=== PATIENT | female | born 1965 | race Caucasian/White ===

== ENCOUNTER 2024-03-10 18:52 | Inpatient (IN) | payer OTHER, SELFPAY ==
[2024-03-10 18:55] VITALS: BP 130/64; PULSE 80; RESP 16; TEMP 36.6; O2SAT 97
[2024-03-11] VITALS (16 sets, daily range): BP systolic 102–153; BP diastolic 65–98; PULSE 76–101; RESP 16–22; TEMP 36.3–36.9; O2SAT 96–100; BMI 53.1
--- NOTE | 2024-03-11 00:12 | ED.SKABFB ---
HPI - Skin/Abscess/Foreign Bdy General Chief complaint: Skin/Abscess/Foreign Body Stated complaint: boil on right breast Time Seen by Provider: 03/10/24 23:18 Source: patient Mode of arrival: EMS Limitations: no limitations History of Present Illness HPI narrative: This is a 58-year-old female that presents to the emergency department for an abscess to the right breast. Reports this has been present over the last 5 days. She has been on oral antibiotics for about 3 days with little relief. Has had worsening redness, swelling and drainage. Denies fevers. Related Data Home Medications Medication Instructions Recorded Confirmed acetaminophen 650 mg 1,300 mg PO Q8H PRN Pain 03/11/24 03/11/24 tablet,extended release albuterol sulfate 90 mcg/actuation 1 puff inhalation TID PRN 03/11/24 03/11/24 aerosol inhaler Shortness Of Breath alendronate 70 mg tablet 70 mg PO WEEKLY 03/11/24 03/11/24 ascorbate calcium (vitamin C) 500 1,000 mg PO DAILY 03/11/24 03/11/24 mg tablet aspirin 81 mg chewable tablet 81 mg PO DAILY 03/11/24 03/11/24 atorvastatin 40 mg tablet 40 mg PO HS 03/11/24 03/11/24 calcium carbonate (Tums) 400 mg PO TID PRN upset stomach 03/11/24 03/11/24 carvedilol 12.5 mg tablet 12.5 mg PO BID 03/11/24 03/11/24 cetirizine 10 mg tablet 10 mg PO DAILY PRN allergies 03/11/24 03/11/24 cholecalciferol (vitamin D3) 25 50 mcg PO DAILY 03/11/24 03/11/24 mcg (1,000 unit) tablet citalopram 40 mg tablet 40 mg PO DAILY 03/11/24 03/11/24 dapagliflozin propanediol 10 mg 10 mg PO DAILY 03/11/24 03/11/24 tablet (Farxiga) docusate sodium 100 mg capsule 100 mg PO BID 03/11/24 03/11/24 fluticasone propionate 50 2 spray intranasal DAILY 03/11/24 03/11/24 mcg/actuation nasal spray,suspension gabapentin 400 mg capsule 400 mg PO TID 03/11/24 03/11/24 guaifenesin 400 mg tablet 400 mg PO QID PRN Cough 03/11/24 03/11/24 insulin regular hum U-500 conc 500 100 unit subcut BID 03/11/24 03/11/24 unit/mL(3 mL) subcut pen (Humulin R U-500 (Conc) Insulin Kwikpen) isosorbide dinitrate 30 mg tablet 30 mg PO DAILY 03/11/24 03/11/24 levetiracetam 750 mg tablet 750 mg PO BID 03/11/24 03/11/24 liraglutide 0.6 mg/0.1 mL (18 mg/3 1.8 mg subcut HS 03/11/24 03/11/24 mL) subcutaneous pen injector (Language Logisticstoza 3-Kush) medroxyprogesterone 10 mg tablet 10 mg PO BID 03/11/24 03/11/24 megestrol 40 mg tablet 40 mg PO BID 03/11/24 03/11/24 melatonin 5 mg tablet 5 mg PO HS 03/11/24 03/11/24 multivitamin with minerals 1 tablet PO DAILY 03/11/24 03/11/24 naproxen 250 mg tablet 250 mg PO BID PRN Pain 03/11/24 03/11/24 nitroglycerin 0.4 mg sublingual 0.4 mg sublingual Q5-15M PRN Chest 03/11/24 03/11/24 tablet Pain peg 400-propylene glycol 0.4 %-0.3 2 drp EACH EYE BID 03/11/24 03/11/24 % eye drops (Systane Ultra) polyethylene glycol 3350 17 17 g PO DAILY 03/11/24 03/11/24 gram/dose oral powder (Miralax) potassium chloride 10 mEq 10 meq PO DAILY 03/11/24 03/11/24 tablet,extended release sodium chloride 0.65 % nasal spray 2 spray intranasal Q2H PRN 03/11/24 03/11/24 aerosol (Saline Nasal) allergies trazodone 100 mg tablet 100 mg PO HS 03/11/24 03/11/24 venlafaxine 150 mg 150 mg PO DAILY 03/11/24 03/11/24 capsule,extended release 24 hr Allergies Allergy/AdvReac Type Severity Reaction Status Date / Time codeine Allergy Severe Itching Verified 03/11/24 05:21 metformin Allergy Severe Diarrhea,Kidney Verified 03/12/24 08:10 disease Anesthetics - Amide Type - Allergy Intermediate Rash Verified 03/11/24 05:21 Select A exenatide [From Bydureon] Allergy Mild Rash Verified 03/11/24 05:21 latex Allergy Mild Rash Verified 03/11/24 05:21 Review of Systems Review of Systems: CONSTITUTIONAL: Denies fever SKIN: Reports redness and swelling All systems reviewed & are unremarkable except as noted in HPI and below PMFSH Past Medical History Medical History History of gastroesophageal
--- NOTE | 2024-03-11 02:06 | PC.NURSE ---
PHLEBOTOMY AT BEDSIDE ATTEMPTING TO OBTAIN BLOOD.
[2024-03-11] MEDS: CEFEPIME 2 GM/NS 50 ML 2 GM/50 ML BAG IVPB (02:42)
[2024-03-11 03:10] LABS: Basophils Absolute Auto 0.1 K/mm3 (0.0-0.1); Basophils Percent Auto 0.5 % (0.2-1.2); Eosinophils Absolute Auto 0.6 K/mm3 (0-0.3); Eosinophils Percent Auto 4.9 % (0-4.4); Hematocrit 36.5 % (37.0-47.0); Hemoglobin 11.7 g/dL (12.0-15.0); Immature Granulocyte Absolute 0.06 K/mm3 (0.00-0.031); Immature Granulocyte Percent A 0.5 % (0-0.5); Lymphocytes Absolute Auto 2.15 K/mm3 (0.9-3.2); Lymphocytes Percent Auto 17.9 % (18.3-44.2); Mean Corpuscular HGB Conc 32.1 g/dl (32-36); Mean Corpuscular Hemoglobin 31.7 pg (26-34); Mean Corpuscular Volume 98.9 fl (80-100); Mean Platelet Volume 10.3 fl (7.4-10.4); Monocytes Absolute Auto 0.7 K/mm3 (0.1-0.6); Monocytes Percent Auto 5.8 % (2.6-8.5); Neutrophils Absolute Auto 8.4 K/mm3 (1.3-6.7); Neutrophils Percent Auto 70.4 % (45.5-73.1); Platelet Count Result 219 k/mm3 (150-375); Red Blood Count 3.69 M/mm3 (4.2-5.4); Red Cell Distribution Width 13.3 % (11.5-14.5)
[2024-03-11 03:26] LABS: Lactic Acid Reflex 1.5 mmol/L (0.7-2.0)
[2024-03-11 03:28] LABS: Anion Gap 16 mmol/L (4-12); Blood Urea Nitrogen 58 mg/dL (7-17); CRP 7.9 mg/dL (<1.0); Calcium 9.3 mg/dL (8.4-10.2); Carbon Dioxide 18 mmol/L (22-30); Chloride 104 mmol/L (98-107); Estimated CRCL calculation 27 ml/min; Estimated Glomerular Filt Rate 17; Glucose 75 mg/dL (65-110); Potassium 4.5 mmol/L (3.4-5.0); Sodium 138 mmol/L (137-145)
[2024-03-11] MEDS: SODIUM CHLORIDE 0.9% IV 500 ML 999 ML IV CONT (03:51)
[2024-03-11] MEDS: metroNIDAZOLE 500 MG/ISO 100ML 500 MG/100 ML BAG 100 MG IVPB ×2 (03:51→14:53)
[2024-03-11 04:04] LABS: Erythrocyte Sedimentation Rate 8 mm/hr (0-20)
--- NOTE | 2024-03-11 05:13 | ADMGEN ---
This patient, Aletha Phillips, was admitted to Medical Room 342-01. Patient/family oriented to hospital policies and general routines including ID bracelet, bed and alarms, visiting hours, pain management, procedures, bathroom and other care routines, personal items, smoking policy, room service/diet, and visiting hours. Information on how to activate the Rapid Response Team has been discussed. Patient/Family are encouraged to report perceived risks to care and to ask questions if they do not understand what they are told or what they should do.
[2024-03-11 08:10] LABS: Glucose Point of Care 117 mg/dl (65-105)
[2024-03-11] MEDS: VANCOMYCIN 1,250 MG/NS 250 ML 1,250 MG/250 ML BAG 166.67 MG IVPB ×2 (09:10→12:02)
--- NOTE | 2024-03-11 11:16 | PM.CNGS ---
Assessment and Plan Assessment and plan (1) Breast abscess: Code(s): N61.1 - Abscess of the breast and nipple Status: Acute Assessment and Plan: The patient presents with a breast abscess and has a draining necrotic wound in the upper outer quadrant of the right breast on exam. Continue IV antibiotics and gauze dressing changes for local wound care for now. Discussed the case with Dr. Osullivan, who would recommend proceeding with debridement and drainage of right breast abscess. Description of the procedure, risks, benefits, alternatives, and expected recovery and wound care were discussed with the patient in detail. She agrees to proceed with surgery. She has been added to surgery schedule today and will be kept NPO pre-operatively. (2) STEPHEN (acute kidney injury): Code(s): N17.9 - Acute kidney failure, unspecified Status: Acute Assessment and Plan: Creatinine 2.9 on admission with no previous labs in our EMR for comparison. She has risks for chronic kidney disease with hypertension, diabetes, and smoking. Unclear if this is all acute or what her baseline creatinine is typically. Will start maintenance IV fluids while she is NPO. Management per Hospitalist. (3) Type 2 diabetes mellitus: Code(s): E11.9 - Type 2 diabetes mellitus without complications Status: Chronic Assessment and Plan: Type 2 diabetic on insulin therapy. Will need adequate glycemic control in the postoperative period. Glucose 75 on admission. No hgb A1C in our records. Management per Hospitalist. (4) Morbid obesity with BMI of 50.0-59.9, adult: Code(s): E66.01 - Morbid (severe) obesity due to excess calories; Z68.43 - Body mass index [BMI] 50.0-59.9, adult Status: Chronic Plan I have discussed the patient's case and plan of care with Dr. Osullivan. Thank you for allowing us to see the patient in consultation and we will continue to follow along with you. History of Present Illness Consult details Consult date: 03/11/24 Reason for consult: other (Breast abscess) Requesting physician: Crys Payne PA-C Narrative: This is a 58-year-old morbidly obese female with PMH of insulin-dependent type 2 diabetes mellitus, hypertension, hyperlipidemia, who we have been asked to see in surgical consultation for a right breast abscess. She reports noticing a hard lump on her right upper outer quadrant of her breast about a week ago. Over the past 4 days, this area started draining. She has had areas that have drained in the past on her posterior thighs and buttocks, and this would typically resolve after it drained. Therefore, she tried to deal with this at home. Although, yesterday she developed more erythema and pain in the right breast, which prompted her to come into the ED for evaluation. [place] [id number], BUN 58, creatinine 2.9, glucose 75, lactic acid 1.5, CRP 7.9. She was found to have a draining wound on her right breast on exam. She was admitted to the hospitalist and started on IV antibiotics. Wound culture and blood cultures ordered. Our service was consulted and she is now seen on the medical floor. She reports living at [facility] for the past year as she was unable to care for herself and her at home anymore. They both reside in the half-way. She denies every having a breast abscess in the past and has never required any surgical management of her draining wounds in the past. Denies a history of MRSA. She reports having a negative mammogram about 8 months ago. There is no previous imaging or labs that I am able to review in our EMR here at [facility]. She is a former smoker and quit in 2018. Review of Systems Review of Systems: All systems reviewed & are unremarkable except as noted in HPI and below PMFSH Past Medical History Medical History History of gastroesophageal reflux (GERD) History of hypertension Hyper
[2024-03-11] MEDS: SODIUM CHLORIDE 0.9% IV 1,000 ML 100 ML IV CONT (12:02)
[2024-03-11 12:04] LABS: Glucose Point of Care 147 mg/dl (65-105)
--- NOTE | 2024-03-11 14:44 | PM.IMHP ---
H&P: HPI History of Present Illness Date/Time: 03/11/24 14:44 Chief Complaint: Right Breast Abscess Narrative: Patient was brought in to ER with reports of Right-sided breast infection. Patient currently lives at a senior living and states she has been having an infection to her Right breast and was started on Doxycycline at the senior living for the last 3 days with no improvement in symptoms. Pt reports increased swelling, redness and increased amounts of purulent drainage, prompting her to come to the ER for evaluation. Pt denies any fevers of chills, denies pain or infected area, reports previous similar incidents on her posterior thighs and buttocks that resolved after draining. Patient reports chronic back and legs pain, ambulates with walker. Review of Systems Review of Systems: All systems reviewed & are unremarkable except as noted in HPI and below PMFSH Past Medical History Medical History History of gastroesophageal reflux (GERD) History of hypertension Hyperlipidemia Morbid obesity with BMI of 50.0-59.9, adult Type 2 diabetes mellitus Surgical History Surgical History History of knee surgery History of tubal ligation Social History Social History Smoking packs per day: 1 Smoking cigarettes per day: 20.0 Years smoked: 30 Smoking pack-years: 30.00 Smoking status: Former smoker Tobacco type: cigarettes Second hand tobacco smoke exposure: No Smoking end date: 11/17/17 Alcohol intake: never Substance use: never Substance use type: does not use Do You Feel Safe in your Home?: Yes Lack of Transportation: No Lack of Food: Never True Current Housing: I Have Housing Concerned About Future Housing: No Difficulty Paying Gas/Electric Bills: No Difficulty Paying for Meds: No Currently Unemployed: Decline to Answer Education: Trade/Vocational Certificate Difficulty w/ Childcare or Family Care: No Spiritual care concerns: No Meds Home Medications and Allergies Home Medications Medication Instructions Recorded Confirmed Type acetaminophen 650 mg 1,300 mg PO Q8H PRN Pain 03/11/24 03/11/24 History tablet,extended release albuterol sulfate 90 mcg/actuation 1 puff inhalation TID PRN 03/11/24 03/11/24 History aerosol inhaler Shortness Of Breath alendronate 70 mg tablet 70 mg PO WEEKLY 03/11/24 03/11/24 History ascorbate calcium (vitamin C) 500 1,000 mg PO DAILY 03/11/24 03/11/24 History mg tablet aspirin 81 mg chewable tablet 81 mg PO DAILY 03/11/24 03/11/24 History atorvastatin 40 mg tablet 40 mg PO HS 03/11/24 03/11/24 History calcium carbonate (Tums) 400 mg PO TID PRN upset stomach 03/11/24 03/11/24 History carvedilol 12.5 mg tablet 12.5 mg PO BID 03/11/24 03/11/24 History cetirizine 10 mg tablet 10 mg PO DAILY PRN allergies 03/11/24 03/11/24 History cholecalciferol (vitamin D3) 25 50 mcg PO DAILY 03/11/24 03/11/24 History mcg (1,000 unit) tablet citalopram 40 mg tablet 40 mg PO DAILY 03/11/24 03/11/24 History dapagliflozin propanediol 10 mg 10 mg PO DAILY 03/11/24 03/11/24 History tablet (Farxiga) docusate sodium 100 mg capsule 100 mg PO BID 03/11/24 03/11/24 History fluticasone propionate 50 2 spray intranasal DAILY 03/11/24 03/11/24 History mcg/actuation nasal spray,suspension furosemide 40 mg tablet 40 mg PO DAILY 03/11/24 03/11/24 History gabapentin 400 mg capsule 400 mg PO TID 03/11/24 03/11/24 History guaifenesin 400 mg tablet 400 mg PO QID PRN Cough 03/11/24 03/11/24 History hydrochlorothiazide 25 mg tablet 25 mg PO DAILY 03/11/24 03/11/24 History insulin regular hum U-500 conc 500 100 unit subcut BID 03/11/24 03/11/24 History unit/mL(3 mL) subcut pen (Humulin R U-500 (Conc) Insulin Kwikpen) isosorbide dinitrate 30 mg tablet 30 mg PO DAILY 03/11/24 03/11/24 History lev
[2024-03-11 15:54] LABS: Glucose Point of Care 151 mg/dl (65-105)
--- NOTE | 2024-03-11 16:08 | WPDANESEPPF ---
Anes - Initial Pre Proc Eval Procedure: Operation Date: 03/11/24 16:00 Proposed Procedures p Debridement and Drainage Right Breast Abscess - Sushant Osullivan MD Date/Time: 03/11/24 16:08 Surgeon: Ekaterina Darnell DO Pre Op Diagnosis: Breast abscess Patient Data Age: 58 Gender: F Height: 1.65 m Weight: 145 kg Last Vital Signs Temp 36.3 C L 03/11/24 15:54 Pulse 82 03/11/24 15:54 Resp 18 03/11/24 05:17 BP 138/85 03/11/24 15:54 Pulse Ox 98 03/11/24 15:54 O2 Del Method Room Air 03/11/24 15:54 Allergies Allergy/AdvReac Type Severity Reaction Status Date / Time codeine Allergy Severe Itching Verified 03/11/24 05:21 metformin Allergy Severe Diarrhea Verified 03/11/24 05:21 Anesthetics - Amide Type - Allergy Intermediate Rash Verified 03/11/24 05:21 Select A exenatide [From [employer]] Allergy Mild Rash Verified 03/11/24 05:21 latex Allergy Mild Rash Verified 03/11/24 05:21 Home Medications Medication Instructions Recorded Confirmed Type acetaminophen 650 mg 1,300 mg PO Q8H PRN Pain 03/11/24 03/11/24 History tablet,extended release albuterol sulfate 90 mcg/actuation 1 puff inhalation TID PRN 03/11/24 03/11/24 History aerosol inhaler Shortness Of Breath alendronate 70 mg tablet 70 mg PO WEEKLY 03/11/24 03/11/24 History ascorbate calcium (vitamin C) 500 1,000 mg PO DAILY 03/11/24 03/11/24 History mg tablet aspirin 81 mg chewable tablet 81 mg PO DAILY 03/11/24 03/11/24 History atorvastatin 40 mg tablet 40 mg PO HS 03/11/24 03/11/24 History calcium carbonate (Tums) 400 mg PO TID PRN upset stomach 03/11/24 03/11/24 History carvedilol 12.5 mg tablet 12.5 mg PO BID 03/11/24 03/11/24 History cetirizine 10 mg tablet 10 mg PO DAILY PRN allergies 03/11/24 03/11/24 History cholecalciferol (vitamin D3) 25 50 mcg PO DAILY 03/11/24 03/11/24 History mcg (1,000 unit) tablet citalopram 40 mg tablet 40 mg PO DAILY 03/11/24 03/11/24 History dapagliflozin propanediol 10 mg 10 mg PO DAILY 03/11/24 03/11/24 History tablet (Farxiga) docusate sodium 100 mg capsule 100 mg PO BID 03/11/24 03/11/24 History fluticasone propionate 50 2 spray intranasal DAILY 03/11/24 03/11/24 History mcg/actuation nasal spray,suspension furosemide 40 mg tablet 40 mg PO DAILY 03/11/24 03/11/24 History gabapentin 400 mg capsule 400 mg PO TID 03/11/24 03/11/24 History guaifenesin 400 mg tablet 400 mg PO QID PRN Cough 03/11/24 03/11/24 History hydrochlorothiazide 25 mg tablet 25 mg PO DAILY 03/11/24 03/11/24 History insulin regular hum U-500 conc 500 100 unit subcut BID 03/11/24 03/11/24 History unit/mL(3 mL) subcut pen (Humulin R U-500 (Conc) Insulin Kwikpen) isosorbide dinitrate 30 mg tablet 30 mg PO DAILY 03/11/24 03/11/24 History levetiracetam 750 mg tablet 750 mg PO BID 03/11/24 03/11/24 History liraglutide 0.6 mg/0.1 mL (18 mg/3 1.8 mg subcut HS 03/11/24 03/11/24 History mL) subcutaneous pen injector (RedBeetoza 3-Kush) lisinopril 40 mg tablet 40 mg PO BID 03/11/24 03/11/24 History medroxyprogesterone 10 mg tablet 10 mg PO BID 03/11/24 03/11/24 History megestrol 40 mg tablet 40 mg PO BID 03/11/24 03/11/24 History melatonin 5 mg tablet 5 mg PO HS 03/11/24 03/11/24 History multivitamin with minerals 1 tablet PO DAILY 03/11/24 03/11/24 History naproxen 250 mg tablet 250 mg PO BID PRN Pain 03/11/24 03/11/24 History nitroglycerin 0.4 mg sublingual 0.4 mg sublingual Q5-15M PRN Chest 03/11/24 03/11/24 History tablet Pain peg 400-propylene glycol 0.4 %-0.3 2 drp EACH EYE BID 03/11/24 03/11/24 History % eye drops (Systane Ultra) polyethylene glycol 3350 17 17 g PO DAILY 03/11/24 03/11/24 History gram/dose oral powder (Miralax) potassium chloride 10 mEq 10 meq PO DAILY 03/11/24 03/11/24 History tablet,extended release sodium chloride 0.65 % nasal spray 2 spray intranasal Q2H PRN 03/11/24 03/11/24 History aerosol (Saline Nasal) allergies trazodone 100 mg tablet 100 mg PO HS 03/11/24 03/11/24 Histo
--- NOTE | 2024-03-11 16:35 | WPDHPUPDATE1 ---
History and Physical Update Update Date/Time: 03/11/24 16:35 History and Physical has been reviewed, including an updated exam of the patient. There are NO changes in the patient's condition. Risks, benefits, and alternatives have been discussed and questions answered. Patient agrees to proceed with procedure.
[2024-03-11] MEDS: SODIUM CHLORIDE 0.9% IV 1,000 ML 30 ML IV CONT (17:16)
[2024-03-11 17:33] LABS: Glucose Point of Care 139 mg/dl (65-105)
--- NOTE | 2024-03-11 17:52 | SUR.PHASEI ---
Patient said no need to update family. She will when she gets back upstairs.
--- NOTE | 2024-03-11 18:23 | P.OP_ITS ---
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 She resides in a nursing facility and she is unable to take care of herself. she reports having noticed a hard swollen lump in the upper outer right breast at least a week ago. While this was somewhat painful, it began draining about 4 days ago. She had been on some oral antibiotics prior to the drainage beginning. She came to the emergency room yesterday was noted to have a draining infected wound of the right breast. The drainage was purulent. She was seen in consultation and I could not see an opening or express purulent fluid but the skin wounds certainly appeared necrotic and infected with fluctuance as well. She is taken to surgery now for debridement and possibly incision and drainage of a right breast abscess. She may also require biopsy pending the intraoperative findings. Findings The skin and subcutaneous were necrotic but also noted was that the process under the skin left it an abscess cavity but also try packed posterior and lateral at least 7 or 8 centimeters from the wound on the skin. No signs of a necrotizing soft tissue infection were noted but certainly the tracking was suspicious for this type of infection. Description of Procedure Patient was taken to surgery and induced into general anesthesia with LMA. The right breast was prepped and draped. The right breast wound was exposed. I used a curved clamp and probed this area of skin. There was clearly no tissue under it but cavity. I then excised skin and subcutaneous that was necrotic. This measured 3 x 1.5 x 0.5 cm. Once this was removed I checked and there was tracking the lateral aspect of the breast and proceeding caudally. A row began anaerobic cultures of this were taken. I irrigated the area and did not see any additional purulent fluid or necrotic tissue. No other tracking was noted. I unroof to the area of breast over the tracking so that I could visualize it directly. There was no evidence of a necrotizing soft tissue infection. I did not see any tissue that was suspicious for cancer. This area was highly vascular. We use some cautery but after cleaning this out with irrigation, it was packed with 2 in iodoform Nu Gauze, a whole 15 ft of Nu Gauze. Bulky fluffs and ABDs were placed over the wound. The wound was dressed with Medipore tape. Patient was then awakened and taken to recovery in good condition. Sponge needle counts were correct x2. Estimated Blood Loss -20 Drains No Packing Yes ( 2 in iodoform Nu Gauze) Pathology Other ( cultures only- aerobic, anaerobic, Gram stain) Complications None Condition Stable Disposition PACU [facility] Billing Surgery - Charge Forward: Surgery Billing ( excisional debridement skin and subcutaneous tissue 3 x 1.5 x 0.5 cm, incision and drainage complex abscess right breast.)
[2024-03-11 19:05] LABS: Glucose Point of Care 181 mg/dl (65-105)
[2024-03-11] MEDS: LACTATED RINGERS 1,000 ML 100 ML IV CONT (19:10)
[2024-03-11 19:33] LABS: Basophils Absolute Auto 0.1 K/mm3 (0.0-0.1); Basophils Percent Auto 0.6 % (0.2-1.2); Eosinophils Absolute Auto 0.3 K/mm3 (0-0.3); Eosinophils Percent Auto 2.9 % (0-4.4); Hematocrit 36.5 % (37.0-47.0); Hemoglobin 11.6 g/dL (12.0-15.0); Immature Granulocyte Absolute 0.03 K/mm3 (0.00-0.031); Immature Granulocyte Percent A 0.3 % (0-0.5); Lymphocytes Percent Auto 6.8 % (18.3-44.2); Mean Corpuscular HGB Conc 31.8 g/dl (32-36); Mean Corpuscular Volume 100.8 fl (80-100); Mean Platelet Volume 9.7 fl (7.4-10.4); Monocytes Absolute Auto 0.2 K/mm3 (0.1-0.6); Monocytes Percent Auto 2.5 % (2.6-8.5); Neutrophils Absolute Auto 7.7 K/mm3 (1.3-6.7); Neutrophils Percent Auto 86.9 % (45.5-73.1); Platelet Count Result 168 k/mm3 (150-375); Red Blood Count 3.62 M/mm3 (4.2-5.4); White Blood Count 8.8 K/mm3 (4.5-10.0)
[2024-03-11 19:47] LABS: Anion Gap 13 mmol/L (4-12); Blood Urea Nitrogen 46 mg/dL (7-17); Calcium 8.7 mg/dL (8.4-10.2); Carbon Dioxide 16 mmol/L (22-30); Chloride 109 mmol/L (98-107); Estimated CRCL calculation 38 ml/min; Estimated Glomerular Filt Rate 24; Glucose 216 mg/dL (65-110); Potassium 5.7 mmol/L (3.4-5.0); Sodium 138 mmol/L (137-145)
[2024-03-11 19:57] LABS: Hemoglobin A1C 7.4 % (<5.7)
[2024-03-11] MEDS: ATORVASTATIN 40 MG TABLET PO (21:07)
[2024-03-11] MEDS: carvediloL 12.5 MG TABLET PO (21:07)
[2024-03-11] MEDS: DOCUSATE SODIUM 100 MG CAPSULE PO (21:08)
[2024-03-11] MEDS: MEGESTROL ACETATE (*CHEMO) 40 MG TABLET PO (21:08)
[2024-03-11] MEDS: levETIRAcetam 250 MG TABLET 750 MG PO (21:08)
[2024-03-11] MEDS: MELATONIN 5 MG TABLET PO (21:09)
[2024-03-11] MEDS: traZODone HCL 50 MG TABLET 100 MG PO (21:09)
[2024-03-11] MEDS: GABAPENTIN 400 MG CAPSULE PO (21:09)
[2024-03-11] MEDS: ALBUTEROL SULFATE NEB 2.5 MG/3 ML INH INHALATION (21:10)
[2024-03-11] MEDS: SODIUM ZIRCONIUM CYCLOSILICATE 10 GM POWD.PACK PO (21:18)
[2024-03-11] MEDS: SODIUM BICARBONATE TAB 650 MG TABLET PO (21:18)
[2024-03-11] MEDS: SODIUM BICARBONATE 8.4% 50 MEQ/50 ML SYRINGE IV PUSH (21:18)
--- NOTE | 2024-03-11 21:23 | PCRCNOTE ---
After scanning albuterol, patient stated she is not having any breathing difficulties and does not want the updraft treatment. RT listened to pt's lungs, they are clear. RT instructed pt on using Incentive Spirometer.
[2024-03-11 21:30] LABS: Glucose Point of Care 264 mg/dl (65-105)
[2024-03-11] MEDS: INSULIN HUMAN REGULAR (*BKC) 100 UNITS/ML 10 UNITS SUB-Q (23:26)
[2024-03-12] VITALS (22 sets, daily range): BP systolic 108–138; BP diastolic 61–77; PULSE 70–109; RESP 12–20; TEMP 36.1–37; O2SAT 94–100
[2024-03-12 01:50] LABS: Anion Gap 9 mmol/L (4-12); Blood Urea Nitrogen 46 mg/dL (7-17); Calcium 8.8 mg/dL (8.4-10.2); Carbon Dioxide 19 mmol/L (22-30); Chloride 109 mmol/L (98-107); Estimated CRCL calculation 42 ml/min; Estimated Glomerular Filt Rate 27; Glucose 263 mg/dL (65-110); Potassium 6.5 mmol/L (3.4-5.0); Sodium 137 mmol/L (137-145)
--- NOTE | 2024-03-12 02:27 | PC.NURSE ---
This patient, Aletha Phillips, was received from [[address] [place] [address] ] on 03/12/24 at 0227. Patient/family oriented to unit policies and routines
[2024-03-12 02:33] LABS: Glucose Point of Care 252 mg/dl (65-105)
--- NOTE | 2024-03-12 02:36 | ECG_ITS ---
Test Date: 2024-03-12 02:46:23 Measurements Intervals [place] Rate: 90 P: 63 VA: 190 QRS: 2 QRSD: 98 T: 26 QT: 378 QTc: 463 Interpretive Statements SINUS RHYTHM NONSPECIFIC T-WAVE ABNORMALITY No previous ECG available for comparison Electronically Signed On 03-12-2024 14:44:36 CDT by Sunni De La Fuente M.D.
[2024-03-12] MEDS: CEFEPIME 1 GM/NS 50 ML 1 GM/50 ML BAG IVPB (02:45)
[2024-03-12] MEDS: SODIUM POLYSTYRENE SULFONONATE 15 GM/60 ML BTL PO (02:46)
[2024-03-12] MEDS: INSULIN HUMAN REGULAR (*BKC) 100 UNITS/ML 10 UNITS IV PUSH (02:46)
[2024-03-12 03:58] LABS: Glucose Point of Care 233 mg/dl (65-105)
[2024-03-12 04:52] LABS: Hematocrit 34.9 % (37.0-47.0); Hemoglobin 11.2 g/dL (12.0-15.0); Mean Corpuscular HGB Conc 32.1 g/dl (32-36); Mean Corpuscular Hemoglobin 32.4 pg (26-34); Mean Corpuscular Volume 100.9 fl (80-100); Mean Platelet Volume 9.8 fl (7.4-10.4); Platelet Count Result 188 k/mm3 (150-375); Red Blood Count 3.46 M/mm3 (4.2-5.4); Red Cell Distribution Width 12.9 % (11.5-14.5)
[2024-03-12 04:59] LABS: Glucose Point of Care 225 mg/dl (65-105)
[2024-03-12 05:04] LABS: Anion Gap 8 mmol/L (4-12); Blood Urea Nitrogen 46 mg/dL (7-17); Calcium 8.7 mg/dL (8.4-10.2); Carbon Dioxide 22 mmol/L (22-30); Chloride 109 mmol/L (98-107); Estimated CRCL calculation 40 ml/min; Estimated Glomerular Filt Rate 25; Glucose 231 mg/dL (65-110); Potassium 5.6 mmol/L (3.4-5.0); Sodium 139 mmol/L (137-145)
[2024-03-12] MEDS: GABAPENTIN 400 MG CAPSULE PO ×3 (05:45→20:59)
--- NOTE | 2024-03-12 06:04 | PM.EVENT ---
Event Note Event Note Event Note: crosscover note I was called by nurse around midnight about increased vitals checks. It appears patient's potassium had risen significantly from 4.5-5.7 during the course of the day. I ordered a stat check on potassium which had risen to 6.5. Patient was subsequently moved to IMU for closer monitoring. She had been given a dose of Lokelma earlier the evening. I gave a dose of Kayexalate 15 g, regular insulin IV 10 units, subsequent potassium has come down to 5.6. I am holding the lisinopril for hyperkalemia. Of note patient is on insulin U 500 at home. We are slowly up titrating the insulin as she was postop and had little to eat on day of surgery.
[2024-03-12 06:52] LABS: Glucose Point of Care 213 mg/dl (65-105)
[2024-03-12] MEDS: CHOLECALCIFEROL 1,000 UNITS TABLET 2000 UNITS PO (09:10)
[2024-03-12] MEDS: EMPAGLIFLOZIN 25 MG TABLET PO (09:10)
[2024-03-12] MEDS: VENLAFAXINE HCL XR 75 MG CAP.ER.24H 150 MG PO (09:10)
[2024-03-12] MEDS: SODIUM BICARBONATE TAB 650 MG TABLET PO ×2 (09:10→17:18)
[2024-03-12] MEDS: CITALOPRAM HYDROBROMIDE 20 MG TABLET 40 MG PO (09:11)
[2024-03-12] MEDS: LORATADINE 10 MG TABLET PO (09:11)
[2024-03-12] MEDS: ASPIRIN 81 MG CHEWABLE TABLET PO (09:11)
[2024-03-12] MEDS: DOCUSATE SODIUM 100 MG CAPSULE PO ×2 (09:11→20:18)
[2024-03-12] MEDS: carvediloL 12.5 MG TABLET PO ×2 (09:11→20:18)
[2024-03-12] MEDS: ASCORBIC ACID 500 MG TABLET 1000 MG PO (09:12)
[2024-03-12] MEDS: THERAPEUTIC MULTIVITAMINS/MINERALS TAB (*BKC) 1 TABLET PO (09:12)
[2024-03-12] MEDS: INSULIN HUMAN REGULAR (*BKC) 100 UNITS/ML 25 UNITS SUB-Q ×3 (09:24→17:12)
[2024-03-12 09:28] LABS: Anion Gap 9 mmol/L (4-12); Blood Urea Nitrogen 45 mg/dL (7-17); Calcium 8.7 mg/dL (8.4-10.2); Carbon Dioxide 25 mmol/L (22-30); Chloride 108 mmol/L (98-107); Estimated CRCL calculation 44 ml/min; Estimated Glomerular Filt Rate 29; Glucose 250 mg/dL (65-110); Sodium 142 mmol/L (137-145)
[2024-03-12 11:39] LABS: Glucose Point of Care 210 mg/dl (65-105)
[2024-03-12] MEDS: ISOSORBIDE DINITRATE 10 MG TABLET 30 MG PO (11:43)
[2024-03-12] MEDS: FLUTICASONE PROPIONATE 0.05% NA SPR 16 GM BTL (*BKC) 2 SPRAY NASAL (11:43)
[2024-03-12] MEDS: ENOXAPARIN 40 MG/0.4 ML SYRINGE SUB-Q (11:43)
[2024-03-12] MEDS: MEGESTROL ACETATE (*CHEMO) 40 MG TABLET PO ×2 (11:43→20:19)
[2024-03-12] MEDS: levETIRAcetam 250 MG TABLET 750 MG PO ×2 (11:43→20:18)
[2024-03-12] MEDS: medroxyPROGESTERone ACETATE 10 MG TABLET PO ×2 (11:43→20:18)
[2024-03-12] MEDS: polyethylene glycoL 3350 17 GM POWD.PACK PO (11:44)
[2024-03-12] MEDS: SODIUM ZIRCONIUM CYCLOSILICATE 10 GM POWD.PACK PO ×3 (11:44→20:59)
[2024-03-12] MEDS: SODIUM CHLORIDE 0.9% IV 1,000 ML 100 ML IV CONT (11:44)
[2024-03-12] MEDS: INSULIN ASPART (*BKC) 100 UNITS/ML SUB-Q (12:04)
[2024-03-12] MEDS: INSULIN ASPART (*BKC) 100 UNITS/ML 7 UNITS SUB-Q ×2 (12:04→17:11)
--- NOTE | 2024-03-12 12:48 | WPDANESPN ---
Anes - Prog Note Post-Op Date/Time: 03/12/24 12:48 Cardiovascular status: normal Respiratory status: normal Airway patency: baseline Mental status: baseline Post-Op hydration status: normal Vital Signs: Last Vital Signs Temp 37.0 C 03/12/24 11:42 Pulse 84 03/12/24 11:42 Resp 12 03/12/24 11:42 BP 129/73 03/12/24 11:42 Pulse Ox 98 03/12/24 11:42 O2 Del Method Room Air 03/12/24 08:00 O2 Flow Rate 2 03/12/24 04:00 FiO2 21 03/11/24 21:32 Pain Score (VAS): 09/16 I/O: Intake & Output 03/11/24 03/12/24 03/12/24 23:59 07:59 15:59 Intake Total 708.3 600 720 Balance 708.3 600 720 Laboratory Tests 03/12/24 04:37 03/12/24 08:58 03/11/24 03/11/24 03/11/24 15:51 17:32 18:37 WBC RBC Hgb Hct MCV MCH MCHC RDW Plt Count MPV Immature Gran % (Auto) Neut % (Auto) Lymph % (Auto) [place] % (Auto) Eos % (Auto) Baso % (Auto) Lymph # (Auto) [place] # (Auto) Eos # (Auto) Baso # (Auto) Abs Immat Gran (auto) Absolute Neuts (auto) Absolute Nucleated RBC Nucleated RBC % Sodium Potassium Chloride Carbon Dioxide Anion Gap BUN Creatinine Estim Creat Clear Calc Estimated GFR Glucose POC Capillary Glucose 151 H 139 H 181 H Hemoglobin A1c Calcium 03/11/24 03/11/24 03/12/24 19:26 20:52 01:31 WBC 8.8 RBC 3.62 L Hgb 11.6 L Hct 36.5 L MCV 100.8 H MCH 32.0 MCHC 31.8 L RDW 13.0 Plt Count 168 MPV 9.7 Immature Gran % (Auto) 0.3 Neut % (Auto) 86.9 H Lymph % (Auto) 6.8 L [place] % (Auto) 2.5 L Eos % (Auto) 2.9 Baso % (Auto) 0.6 Lymph # (Auto) 0.60 L [place] # (Auto) 0.2 Eos # (Auto) 0.3 Baso # (Auto) 0.1 Abs Immat Gran (auto) 0.03 Absolute Neuts (auto) 7.7 H Absolute Nucleated RBC 0.000 Nucleated RBC % 0.0 Sodium 138 137 Potassium 5.7 H 6.5 H* Chloride 109 H 109 H Carbon Dioxide 16 L 19 L Anion Gap 13 H 9 BUN 46 H D 46 H Creatinine 2.10 H 1.90 H Estim Creat Clear Calc 38 42 Estimated GFR 24 L 27 L Glucose 216 H 263 H POC Capillary Glucose 264 H Hemoglobin A1c 7.4 H Calcium 8.7 8.8 03/12/24 03/12/24 03/12/24 02:29 03:45 04:37 WBC 9.0 RBC 3.46 L Hgb 11.2 L Hct 34.9 L MCV 100.9 H MCH 32.4 MCHC 32.1 RDW 12.9 Plt Count 188 MPV 9.8 Immature Gran % (Auto) Neut % (Auto) Lymph % (Auto) [place] % (Auto) Eos % (Auto) Baso % (Auto) Lymph # (Auto) [place] # (Auto) Eos # (Auto) Baso # (Auto) Abs Immat Gran (auto) Absolute Neuts (auto) Absolute Nucleated RBC Nucleated RBC % Sodium 139 Potassium 5.6 H Chloride 109 H Carbon Dioxide 22 Anion Gap 8 BUN 46 H Creatinine 2.00 H Estim Creat Clear Calc 40 Estimated GFR 25 L Glucose 231 H POC Capillary Glucose 252 H 233 H Hemoglobin A1c Calcium 8.7 03/12/24 03/12/24 03/12/24 04:56 06:43 08:58 WBC RBC Hgb Hct MCV MCH MCHC RDW Plt Count MPV Immature Gran % (Auto) Neut % (Auto) Lymph % (Auto) [place] % (Auto) Eos % (Auto) Baso % (Auto) Lymph # (Auto) [place] # (Auto) Eos # (Auto) Baso # (Auto) Abs Immat Gran (auto) Absolute Neuts (auto) Absolute Nucleated RBC Nucleated RBC % Sodium 142 Potassium 5.0 Chloride 108 H Carbon Dioxide 25 Anion Gap 9 BUN 45 H Creatinine 1.80 H Estim Creat Clear Calc 44 Estimated GFR 29 L Glucose 250 H POC Capillary Glucose 225 H 213 H Hemoglobin A1c Calcium 8.7 03/12/24 11:10 WBC RBC Hgb Hct MCV MCH MCHC RDW Plt Count MPV Immature Gran % (Auto) Neut % (Auto) Lymph % (Auto) [place] % (Auto) Eos % (Auto) Baso % (Auto) Lymph # (Auto) [place] # (Auto) Eos # (Auto) Baso # (Auto) Abs Immat Gran (auto) Absolute Neuts
[2024-03-12] MEDS: fentaNYL CITRATE INJ (*CRX) 100 MCG/2 ML VIAL 12.5 MCG IV PUSH (14:05)
[2024-03-12 15:57] LABS: Glucose Point of Care 105 mg/dl (65-105)
--- NOTE | 2024-03-12 17:03 | PM.IMPN ---
Progress Note: A&P Assessment and Plan (1) Breast abscess: Code(s): N61.1 - Abscess of the breast and nipple Status: Acute Assessment and Plan: - s/p debridement and I & D of right breast. - Blood cultures pending. - Preliminary wound cultures growing staph areus. - Cefepime discontinued, Continue Vancomycin. - General surgery following. - Follow cultures. - Surgical wound care per general surgery. (2) Hyperkalemia: Code(s): E87.5 - Hyperkalemia Status: Acute Assessment and Plan: - Possibly related to STEPHEN on CKD. - Potassium 5.7>>6.5>>5.6 overnight. - Treated with Lokelma and insulin IV. - Repeat labs currently wnl at 5. - Continue to monitor levels closely. - Continue tele monitoring. - EKG: SR with non-specific T-waves abnormality. (3) STEPHEN (acute kidney injury): Code(s): N17.9 - Acute kidney failure, unspecified Status: Acute Assessment and Plan: - Likely an element of CKD, with the pt following up with nephrology outpatient (Next appt next month) - No previous labs for baseline comparison of renal function. - Continue IV fluids hydration. - Hold Lasix and HCTZ for now. - Avoid nephrotoxic agents. - Monitor closely with IV abx. (4) Type 2 diabetes mellitus: Code(s): E11.9 - Type 2 diabetes mellitus without complications Status: Chronic Assessment and Plan: - BGL slightly elevated. - Started on SSI in addition to prandal, Liraglutide and Farxiga. - Continue to adjust insulin as needed for optimal control. - Check A1C. (5) CKD (chronic kidney disease): Code(s): N18.9 - Chronic kidney disease, unspecified Status: Acute Assessment and Plan: - Previous baseline unknown with no labs for comparison. - Renal function appears to be stabilizing. - Continue IVF hydration. - Hold diuretics for now. - Avoid nephrotoxins. (6) History of hypertension: Code(s): Z86.79 - Personal history of other diseases of the circulatory system Status: Chronic Assessment and Plan: - BP well controlled. - Hold Lisinopril with hyperkalemia. - Continue isosorbide dinitrate and coreg. - Adjust meds as needed. (7) Leukocytosis: Code(s): D72.829 - Elevated white blood cell count, unspecified Status: Acute Assessment and Plan: - Likely related to infected breast. - Resolved with right breast debridement and abx use. (8) Seizures: Code(s): R56.9 - Unspecified convulsions Status: Acute Assessment and Plan: - Seizure precautions. - Continue Keppra. (9) Morbid obesity with BMI of 50.0-59.9, adult: Code(s): E66.01 - Morbid (severe) obesity due to excess calories; Z68.43 - Body mass index [BMI] 50.0-59.9, adult Status: Chronic Assessment and Plan: - BMI 53.2 - Encourage with lifestyle modification when stable. Plan Code Status: DNR DVT PPx: SCD's. Diet: Cardiac/Diabetic Anticipated LOS: > 2 days. Time Spent With Patient Time with patient: 25 - 35 minutes Subjective Date/time seen: 03/12/24 12:05 Interval history: Patient was brought in to ER with reports of Right-sided breast infection. Patient [facility] lives at a intermediate and was initially started on Doxycycline at the intermediate with no improvement in symptoms. Patient underwent right-breast debridement and I & D per general surgery last evening, and reports she feels alright and has no complaints. She reports chronic pain at her legs intermittently otherwise has no distressful symptoms. Pt denies any fevers of chills, denies pain on right breast region, and states she's comfortable. Review of Systems Review of Systems: All systems reviewed & are unremarkable except as noted in HPI and below Exam Narrative: HEENT: Atraumatic, EOMI, PERRL, oral mucosa,no nodules. Neck: Supple, No midline cervical tenderness. Respiratory: Clear bilaterally. Cardiovascular: RRR, No murmurs, S1S2. GI: Obese, soft, non-tender,
[2024-03-12] MEDS: oxyCODONE/ACETAMINOPHEN (*CRX) 5-325 MG TABLET 1 TABLET PO ×2 (17:20→20:57)
[2024-03-12] MEDS: ARTIFICIAL TEARS OPHTH SOLN 15 ML BOTTLE 2 DROP EACH EYE (17:30)
--- NOTE | 2024-03-12 18:24 | PM.PNGS ---
Progress Note: A&P Assessment and Plan (1) Breast abscess: Code(s): N61.1 - Abscess of the breast and nipple Status: Acute Assessment and Plan: POD1 debridement and drainage right breast abscess with necrotic skin and subcutaneous tissue. Abscess appears adequately drained and wound is healing well today with no necrotic tissue or purulent drainage. Wound care nurses consulted and will start wound vac therapy. Will ask care coordination to start working on wound vac approval when the patient is eventually discharged back to the skilled nursing. Continue IV antibiotics. (2) STEPHEN (acute kidney injury): Code(s): N17.9 - Acute kidney failure, unspecified Status: Acute Assessment and Plan: Improving, creatinine down to 1.8 today. Patient had hypokalemia overnight and was transferred to IMU for monitoring. Potassium improved following treatment. (3) Type 2 diabetes mellitus: Code(s): E11.9 - Type 2 diabetes mellitus without complications Status: Chronic (4) Morbid obesity with BMI of 50.0-59.9, adult: Code(s): E66.01 - Morbid (severe) obesity due to excess calories; Z68.43 - Body mass index [BMI] 50.0-59.9, adult Status: Chronic Plan I have discussed the patient's case and plan of care with Dr. Osullivan. Subjective Subjective Date/Time Seen: 03/12/24 14:24 Post Op day: 1 (Debridement and drainage right breast abscess) Patient reports: no new complaints, feels better, pain is less and afebrile Exam Const: General: comfortable and no acute distress Chest: Other: Right breast dressing and packing removed. Erythema resolved and now with an open wound tunneling 7.5 cm laterally at the 9-10 o'clock position. The entire wound bed has health pink tissue with no purulent drainage and no necrotic tissue noted. Objective Data Vital Signs Vital Signs: Vital Signs - 24 hr 03/11/24 18:30 03/11/24 18:45 03/11/24 20:45 Temperature 98.5 F 98.4 F 98.1 F Pulse Rate 88 76 79 Respiratory Rate 16 18 18 Blood Pressure 153/98 H 151/76 H 146/87 H Pulse Oximetry 100 99 96 Oxygen Delivery Oxygen Flow Rate Fraction of Inspired Oxygen 03/11/24 21:07 03/11/24 21:32 03/11/24 21:08 Temperature Pulse Rate 79 97 Respiratory Rate Blood Pressure Pulse Oximetry 96 96 Oxygen Delivery Room Air Nasal Cannula Oxygen Flow Rate 2 Fraction of Inspired Oxygen 21 03/12/24 00:36 03/12/24 02:39 03/12/24 02:52 Temperature 97 F L 97.8 F Pulse Rate 82 87 101 H Respiratory Rate 20 14 Blood Pressure 125/74 132/61 Pulse Oximetry 98 98 Oxygen Delivery Oxygen Flow Rate Fraction of Inspired Oxygen 03/12/24 04:00 03/12/24 02:30 03/12/24 04:00 Temperature Pulse Rate 87 Respiratory Rate Blood Pressure Pulse Oximetry 98 98 Oxygen Delivery Nasal Cannula Nasal Cannula Oxygen Flow Rate 2 2 Fraction of Inspired Oxygen 03/12/24 06:00 03/12/24 06:40 03/12/24 07:39 Temperature 98.1 F 98.4 F Pulse Rate 80 78 95 Respiratory Rate 20 16 Blood Pressure 108/66 134/77 Pulse Oximetry 98 100 Oxygen Delivery Oxygen Flow Rate Fraction of Inspired Oxygen 03/12/24 09:11 03/12/24 08:00 03/12/24 08:00 Temperature Pulse Rate 99 70 Respiratory Rate Blood Pressure Pulse Oximetry Oxygen Delivery Room Air Oxygen Flow Rate Fraction of Inspired Oxygen 03/12/24 10:00 03/12/24 11:42 03/12/24 12:00 Temperature 98.6 F Pulse Rate 99 84 Respiratory Rate 12 Blood Pressure 129/73 Pulse Oximetry 98 Oxygen Delivery Room Air Oxygen Flow Rate Fraction of Inspired Oxygen 03/12/24 12:00 03/12/24 14:00 03/12/24 15:59 Temperature 98.1 F Pulse Rate 84 84 79 Respiratory Rate 20 Blood Pressure 137/61 Pulse Oximetry 94 Oxygen Delivery Oxygen Flow Rate Fraction of Inspired Oxygen 03/12/24 16:00 03/12/24 16:00 Temperature Pulse Rate 79 109 H Respiratory Rate 20 Blood P
[2024-03-12 20:02] LABS: Hemoglobin A1C 7.6 % (<5.7)
[2024-03-12] MEDS: ATORVASTATIN 40 MG TABLET PO (20:18)
[2024-03-12] MEDS: traZODone HCL 50 MG TABLET 100 MG PO (20:18)
[2024-03-12] MEDS: MELATONIN 5 MG TABLET PO (20:19)
[2024-03-12] MEDS: VANCOMYCIN 1,500 MG/NS 500 ML 1,500 MG/500 ML BAG 250 MG IVPB (20:21)
[2024-03-12 20:36] LABS: Glucose Point of Care 104 mg/dl (65-105)
[2024-03-13] VITALS (13 sets, daily range): BP systolic 128–138; BP diastolic 61–77; PULSE 69–96; RESP 18–22; TEMP 36.1–37.2; O2SAT 97–100
[2024-03-13] MEDS: SODIUM CHLORIDE 0.9% IV 1,000 ML 100 ML IV CONT ×3 (01:23→18:41)
[2024-03-13] MEDS: ACETAMINOPHEN 500 MG TABLET PO (02:55)
[2024-03-13 05:12] LABS: Estimated CRCL calculation 46 ml/min; Estimated Glomerular Filt Rate 31
[2024-03-13] MEDS: GABAPENTIN 400 MG CAPSULE PO ×3 (06:18→21:14)
[2024-03-13] MEDS: oxyCODONE/ACETAMINOPHEN (*CRX) 5-325 MG TABLET 1 TABLET PO ×3 (06:24→17:45)
[2024-03-13 06:42] LABS: Glucose Point of Care 143 mg/dl (65-105)
[2024-03-13] MEDS: CHOLECALCIFEROL 1,000 UNITS TABLET 2000 UNITS PO (09:41)
[2024-03-13] MEDS: THERAPEUTIC MULTIVITAMINS/MINERALS TAB (*BKC) 1 TABLET PO (09:41)
[2024-03-13] MEDS: ISOSORBIDE DINITRATE 10 MG TABLET 30 MG PO (09:41)
[2024-03-13] MEDS: carvediloL 12.5 MG TABLET PO ×2 (09:42→21:15)
[2024-03-13] MEDS: ASCORBIC ACID 500 MG TABLET 1000 MG PO (09:42)
[2024-03-13] MEDS: LORATADINE 10 MG TABLET PO (09:43)
[2024-03-13] MEDS: CITALOPRAM HYDROBROMIDE 20 MG TABLET 40 MG PO (09:43)
[2024-03-13] MEDS: DOCUSATE SODIUM 100 MG CAPSULE PO ×2 (09:43→21:15)
[2024-03-13] MEDS: levETIRAcetam 250 MG TABLET 750 MG PO ×2 (09:43→21:10)
[2024-03-13] MEDS: medroxyPROGESTERone ACETATE 10 MG TABLET PO ×2 (09:43→21:10)
[2024-03-13] MEDS: ASPIRIN 81 MG CHEWABLE TABLET PO (09:43)
[2024-03-13] MEDS: SODIUM BICARBONATE TAB 650 MG TABLET PO ×2 (09:43→17:46)
[2024-03-13] MEDS: MEGESTROL ACETATE (*CHEMO) 40 MG TABLET PO ×2 (09:43→21:10)
[2024-03-13] MEDS: EMPAGLIFLOZIN 25 MG TABLET PO (09:43)
[2024-03-13] MEDS: VENLAFAXINE HCL XR 75 MG CAP.ER.24H 150 MG PO (09:43)
[2024-03-13] MEDS: INSULIN HUMAN REGULAR (*BKC) 100 UNITS/ML 25 UNITS SUB-Q ×3 (09:50→17:46)
[2024-03-13] MEDS: INSULIN ASPART (*BKC) 100 UNITS/ML 7 UNITS SUB-Q ×3 (09:51→17:52)
[2024-03-13] MEDS: polyethylene glycoL 3350 17 GM POWD.PACK PO (09:52)
[2024-03-13] MEDS: ARTIFICIAL TEARS OPHTH SOLN 15 ML BOTTLE 2 DROP EACH EYE ×2 (09:52→21:28)
[2024-03-13] MEDS: ENOXAPARIN 40 MG/0.4 ML SYRINGE SUB-Q (09:52)
[2024-03-13 10:19] LABS: Hematocrit 32.3 % (37.0-47.0); Hemoglobin 10.1 g/dL (12.0-15.0); Mean Corpuscular HGB Conc 31.3 g/dl (32-36); Mean Corpuscular Hemoglobin 31.9 pg (26-34); Mean Corpuscular Volume 101.9 fl (80-100); Mean Platelet Volume 10.1 fl (7.4-10.4); Platelet Count Result 162 k/mm3 (150-375); Red Blood Count 3.17 M/mm3 (4.2-5.4); Red Cell Distribution Width 13.1 % (11.5-14.5); White Blood Count 6.8 K/mm3 (4.5-10.0)
[2024-03-13 10:33] LABS: Anion Gap 11 mmol/L (4-12); Blood Urea Nitrogen 41 mg/dL (7-17); Calcium 8.3 mg/dL (8.4-10.2); Carbon Dioxide 22 mmol/L (22-30); Chloride 108 mmol/L (98-107); Estimated CRCL calculation 49 ml/min; Estimated Glomerular Filt Rate 33; Glucose 134 mg/dL (65-110); Potassium 4.6 mmol/L (3.4-5.0); Sodium 141 mmol/L (137-145)
[2024-03-13 11:26] LABS: Glucose Point of Care 182 mg/dl (65-105)
[2024-03-13] MEDS: FLUTICASONE PROPIONATE 0.05% NA SPR 16 GM BTL (*BKC) 2 SPRAY NASAL (12:49)
[2024-03-13] MEDS: SODIUM ZIRCONIUM CYCLOSILICATE 10 GM POWD.PACK PO ×2 (12:49→18:40)
[2024-03-13] MEDS: DOXYCYCLINE HYCLATE 100 MG TABLET PO ×2 (12:59→21:14)
--- NOTE | 2024-03-13 13:55 | PM.PNGS ---
Progress Note: A&P Assessment and Plan (1) Breast abscess: Code(s): N61.1 - Abscess of the breast and nipple Status: Acute Assessment and Plan: POD2 debridement and drainage right breast abscess with necrotic skin and subcutaneous tissue. Abscess adequately drained and wound is healing well. Continue wound vac therapy. Patient will return to [facility] at discharge and CC confirmed that [facility] has a wound vac available at their facility. Okay to transition to oral antibiotics and discharge the patient back to the correction when medically stable. Her wound culture grew MRSA, sensitive to multiple oral antibiotic options such as Bactrim, doxycycline, or clindamycin. (2) STEPHEN (acute kidney injury): Code(s): N17.9 - Acute kidney failure, unspecified Status: Acute Assessment and Plan: Continues to improve. Her baseline creatinine is unknown. Potassium normalized. Patient being transferred to the medical floor. (3) Type 2 diabetes mellitus: Code(s): E11.9 - Type 2 diabetes mellitus without complications Status: Chronic (4) Morbid obesity with BMI of 50.0-59.9, adult: Code(s): E66.01 - Morbid (severe) obesity due to excess calories; Z68.43 - Body mass index [BMI] 50.0-59.9, adult Status: Chronic Plan I have discussed the patient's case and plan of care with Dr. Osullivan. Subjective Subjective Date/Time Seen: 03/13/24 13:55 Post Op day: 2 (excisional debridement skin and subcutaneous 3 cm x 1.5 cm x 0.5 cm, drainage of extensive abscess right breast) Patient reports: no new complaints, feels better and afebrile Interval history: Patient denies any issues overnight. Wound vac working well. Right breast pain continues to improve. She had pain with the dressing change yesterday, but otherwise not much pain. Exam Const: General: comfortable and no acute distress Orientation/consciousness: patient oriented x3 Chest: Other: Right breast with wound vac dressing dry and intact, functioning well with scant bloody drainage in the canister Objective Data Vital Signs Vital Signs: Vital Signs - 24 hr 03/12/24 14:00 03/12/24 15:59 03/12/24 16:00 Temperature 98.1 F Pulse Rate 84 79 79 Respiratory Rate 20 20 Blood Pressure 137/61 Pulse Oximetry 94 94 Oxygen Delivery Room Air Fraction of Inspired Oxygen 21 03/12/24 16:00 03/12/24 18:00 03/12/24 19:42 Temperature 97.8 F Pulse Rate 109 H 109 H 84 Respiratory Rate 20 Blood Pressure 138/71 Pulse Oximetry 98 Oxygen Delivery Fraction of Inspired Oxygen 03/12/24 20:18 03/12/24 20:00 03/12/24 20:00 Temperature Pulse Rate 81 82 Respiratory Rate Blood Pressure Pulse Oximetry Oxygen Delivery Room Air Fraction of Inspired Oxygen 03/12/24 22:00 03/12/24 23:53 03/13/24 00:00 Temperature 97.7 F Pulse Rate 76 70 72 Respiratory Rate 16 Blood Pressure 109/67 Pulse Oximetry 100 Oxygen Delivery Fraction of Inspired Oxygen 03/13/24 00:00 03/13/24 02:00 03/13/24 04:00 Temperature 98.9 F Pulse Rate 74 75 Respiratory Rate 20 Blood Pressure 128/70 Pulse Oximetry 100 Oxygen Delivery Room Air Fraction of Inspired Oxygen 03/13/24 04:00 03/13/24 04:00 03/13/24 06:00 Temperature Pulse Rate 72 69 Respiratory Rate Blood Pressure Pulse Oximetry Oxygen Delivery Room Air Fraction of Inspired Oxygen 03/13/24 08:00 03/13/24 09:42 03/13/24 11:47 Temperature 97.6 F 97 F L Pulse Rate 86 96 74 Respiratory Rate 20 22 H Blood Pressure 138/77 128/61 Pulse Oximetry 97 98 Oxygen Delivery Fraction of Inspired Oxygen 03/13/24 08:00 03/13/24 08:00 03/13/24 12:00 Temperature Pulse Rate 74 74 Respiratory Rate Blood Pressure Pulse Oximetry Oxygen Delivery Room Air Fraction of Inspired Oxygen Intake/Output Intake/Output: Intake & Output 03/10/24 03/11/24 03/12/2403/13
[2024-03-13 16:17] LABS: Glucose Point of Care 145 mg/dl (65-105)
--- NOTE | 2024-03-13 19:55 | PM.IMPN ---
Progress Note: A&P Assessment and Plan (1) Breast abscess: Code(s): N61.1 - Abscess of the breast and nipple Status: Acute Assessment and Plan: - s/p debridement and drainage of right breast. - Blood cultures negative. - Wound cultures growing MRSA. - Vancomycin discontinued and doxycycline started per sensitivities. - Currently wound with Wound-Vac per general surgery. - Cleared for d/c per general surgery when Wound-Vac available at [facility]. (2) Hyperkalemia: Code(s): E87.5 - Hyperkalemia Status: Acute Assessment and Plan: - Possibly related to STEPHEN on CKD. - Potassium previously 5.7>>6.5>>5.6 overnight. - Treated with Lokelma, insulin IV and IVF. - Resolved. (3) STEPHEN (acute kidney injury): Code(s): N17.9 - Acute kidney failure, unspecified Status: Acute Assessment and Plan: - Pt with some baseline CKD, and follows up with nephrology outpatient (Next appt next month) - No previous labs for baseline comparison of renal function. - Pt states her diuretics were stopped by her PCP in [place] but restarted at the [place]. - Continues to improve with IVF hydration. - Continue IV fluids hydration. - Continue to hold Lasix and HCTZ. - Avoid nephrotoxic agents. (4) Type 2 diabetes mellitus: Code(s): E11.9 - Type 2 diabetes mellitus without complications Status: Chronic Assessment and Plan: - BGL improving with insulin adjustments. - Continue SSI, scheduled prandal insulin, Liraglutide and Farxiga. - Continue to adjust insulin as needed for optimal control. - Check A1C. (5) CKD (chronic kidney disease): Code(s): N18.9 - Chronic kidney disease, unspecified Status: Acute Assessment and Plan: - Previous baseline unknown with no labs for comparison. - Renal function improving. - Continue IVF hydration. - Hold diuretics for now. - Avoid nephrotoxins. (6) History of hypertension: Code(s): Z86.79 - Personal history of other diseases of the circulatory system Status: Chronic Assessment and Plan: - BP well controlled. - Hold Lisinopril with hyperkalemia episodes. - Continue isosorbide dinitrate and coreg. - Adjust meds as needed. (7) Leukocytosis: Code(s): D72.829 - Elevated white blood cell count, unspecified Status: Acute Assessment and Plan: - Likely related to infected breast. - Resolved. (8) Seizures: Code(s): R56.9 - Unspecified convulsions Status: Acute Assessment and Plan: - Seizure precautions. - Continue Keppra. (9) Morbid obesity with BMI of 50.0-59.9, adult: Code(s): E66.01 - Morbid (severe) obesity due to excess calories; Z68.43 - Body mass index [BMI] 50.0-59.9, adult Status: Chronic Assessment and Plan: - BMI 53.2 - Encourage with lifestyle modification when stable. Plan Code Status: DNR DVT PPx: SCD's. Diet: Cardiac/Diabetic Anticipated LOS: > 2 days. Subjective Date/time seen: 03/13/24 19:55 Interval history: Patient lives in a NH currently and was brought in to ER with reports of Right-sided breast infection. Patient was [facility]ine [facility] with no improvement in symptoms. She underwent right-breast debridement and drainage per general surgery, and currently right breast wound on a Wound-Vac per general surgery. Patient comfortable on bedrest and currently denies pain, denies fevers of chills. Review of Systems Review of Systems: All systems reviewed & are unremarkable except as noted in HPI and below Exam Narrative: HEENT: Atraumatic, EOMI, PERRL, oral mucosa,no nodules. Neck: Supple, No midline cervical tenderness. Respiratory: Clear bilaterally. Cardiovascular: RRR, No murmurs, S1S2. GI: Obese, soft, non-tender, +ve bowel sounds X4 Quadrants. Skin: [place] and moist. Right breast wound incision with a Wound-Vac. No drainage noted. Neuro: Alert and well oriented. Cranial nerves II-XII intact. Good mandrel press hand
[2024-03-13 20:22] LABS: Glucose Point of Care 112 mg/dl (65-105)
[2024-03-13 20:30] LABS: Hemoglobin A1C 7.6 % (<5.7)
[2024-03-13] MEDS: MELATONIN 5 MG TABLET PO (21:09)
[2024-03-13] MEDS: traZODone HCL 50 MG TABLET 100 MG PO (21:09)
[2024-03-13] MEDS: ATORVASTATIN 40 MG TABLET PO (21:14)
--- NOTE | 2024-03-13 22:53 | PC.NURSE ---
This patient, Aletha Phillips, was received from [facility] on 03/13/24 at 2253. Patient/family oriented to unit policies and routines
[2024-03-14] VITALS: BP 114/65; PULSE 71; RESP 17; TEMP 36.8; O2SAT 99
[2024-03-14] MEDS: oxyCODONE/ACETAMINOPHEN (*CRX) 5-325 MG TABLET 1 TABLET PO ×2 (00:13→12:31)
[2024-03-14] MEDS: GABAPENTIN 400 MG CAPSULE PO ×2 (06:07→13:40)
[2024-03-14 07:07] LABS: Hemoglobin 10.2 g/dL (12.0-15.0); Mean Corpuscular HGB Conc 30.9 g/dl (32-36); Mean Corpuscular Hemoglobin 31.9 pg (26-34); Mean Corpuscular Volume 103.1 fl (80-100); Mean Platelet Volume 9.4 fl (7.4-10.4); Platelet Count Result 161 k/mm3 (150-375); Red Cell Distribution Width 12.8 % (11.5-14.5)
[2024-03-14 07:16] LABS: INR 1.1; Prothrombin Time 14.7 Seconds (11.1-14.7)
[2024-03-14 07:49] LABS: Glucose Point of Care 120 mg/dl (65-105)
[2024-03-14 07:57] VITALS: BP 124/72; PULSE 88; RESP 20; TEMP 36.6; O2SAT 97
[2024-03-14] MEDS: INSULIN ASPART (*BKC) 100 UNITS/ML 7 UNITS SUB-Q ×2 (08:56→12:32)
[2024-03-14] MEDS: polyethylene glycoL 3350 17 GM POWD.PACK PO (09:00)
[2024-03-14] MEDS: EMPAGLIFLOZIN 25 MG TABLET PO (09:00)
[2024-03-14] MEDS: ASCORBIC ACID 500 MG TABLET 1000 MG PO (09:00)
[2024-03-14] MEDS: SODIUM BICARBONATE TAB 650 MG TABLET PO (09:01)
[2024-03-14] MEDS: levETIRAcetam 250 MG TABLET 750 MG PO (09:01)
[2024-03-14] MEDS: DOCUSATE SODIUM 100 MG CAPSULE PO (09:01)
[2024-03-14] MEDS: VENLAFAXINE HCL XR 75 MG CAP.ER.24H 150 MG PO (09:01)
[2024-03-14] MEDS: DOXYCYCLINE HYCLATE 100 MG TABLET PO (09:01)
[2024-03-14] MEDS: ASPIRIN 81 MG CHEWABLE TABLET PO (09:01)
[2024-03-14] MEDS: CITALOPRAM HYDROBROMIDE 20 MG TABLET 40 MG PO (09:02)
[2024-03-14] MEDS: CHOLECALCIFEROL 1,000 UNITS TABLET 2000 UNITS PO (09:02)
[2024-03-14] MEDS: THERAPEUTIC MULTIVITAMINS/MINERALS TAB (*BKC) 1 TABLET PO (09:02)
[2024-03-14] MEDS: ISOSORBIDE DINITRATE 10 MG TABLET 30 MG PO (09:02)
[2024-03-14] MEDS: LORATADINE 10 MG TABLET PO (09:02)
[2024-03-14 09:04] VITALS: PULSE 80
[2024-03-14] MEDS: carvediloL 12.5 MG TABLET PO (09:04)
[2024-03-14] MEDS: MEGESTROL ACETATE (*CHEMO) 40 MG TABLET PO (09:53)
[2024-03-14] MEDS: INSULIN HUMAN REGULAR (*BKC) 100 UNITS/ML 25 UNITS SUB-Q ×2 (09:53→12:38)
[2024-03-14] MEDS: medroxyPROGESTERone ACETATE 10 MG TABLET PO (09:54)
[2024-03-14] MEDS: ENOXAPARIN 40 MG/0.4 ML SYRINGE SUB-Q (10:01)
[2024-03-14 10:56] LABS: Anion Gap 11 mmol/L (4-12); Blood Urea Nitrogen 34 mg/dL (7-17); Calcium 8.7 mg/dL (8.4-10.2); Carbon Dioxide 21 mmol/L (22-30); Chloride 109 mmol/L (98-107); Estimated CRCL calculation 56 ml/min; Estimated Glomerular Filt Rate 38; Glucose 121 mg/dL (65-110); Potassium 4.7 mmol/L (3.4-5.0); Sodium 141 mmol/L (137-145)
--- NOTE | 2024-03-14 11:19 | PM.DS ---
DS: Admitting Diagnosis Discharge Date 03/14/24 Admitting Diagnosis left breast abscess DS: Discharge Diagnosis Discharge Diagnosis (1) Hyperkalemia: Code(s): E87.5 - Hyperkalemia Status: Acute (2) Breast abscess: Code(s): N61.1 - Abscess of the breast and nipple Status: Acute DS: Summary Hospital Course Reason for hospitalization: Left breast abscess Hospital Course: Patient presented to the ER with a left breast abscess, she was also found to have STEPHEN on CKD with hyperkalemia She underwent I and D, S wound culture positive for MRSA sensitive to doxycycline, she was discharged on 14 days doxycycline after discussing with surgery. Lisinopril was held due to STEPHEN on CKD and hyperkalemia, potassium improved to normal, creatinine improved to 1.4. Lisinopril was discontinued, continue other home antihypertensives follow up with primary care. See topical management below: Assessment and Plan (1) Breast abscess: Code(s): N61.1 - Abscess of the breast and nipple Status: Acute Assessment and Plan: - s/p debridement and drainage of right breast. - Blood cultures negative. - Wound cultures growing MRSA sensitivity evaluate - Currently wound with Wound-Vac per general surgery. Discharged on 14 days of doxycycline with follow-up with with General surgery. (2) Hyperkalemia: Code(s): E87.5 - Hyperkalemia Status: Acute Resolved, potassium is 4.7 this morning, s/p of glaucoma on insulin IV fluid. Neck is no pre completely discontinued: Follow-up with Nephrology. (3) STEPHEN (acute kidney injury): Code(s): N17.9 - Acute kidney failure, unspecified Status: Acute Assessment and Plan: - Pt with some baseline CKD, and follows up with nephrology outpatient (Next appt next month) - No previous labs for baseline comparison of renal function. - Pt states her diuretics were stopped by her PCP in [place] but restarted at the [place]. - Continues to improve with IVF hydration. Continue holding Lasix and hydrochlorothiazide until follow-up with Nephrology. (4) Type 2 diabetes mellitus: Code(s): E11.9 - Type 2 diabetes mellitus without complications Status: Chronic Assessment and Plan: Continue home regimen. (5) CKD (chronic kidney disease): Code(s): N18.9 - Chronic kidney disease, unspecified Status: Acute Assessment and Plan: - Previous baseline unknown with no labs for comparison. - Renal function improving. - Continue IVF hydration. - Hold diuretics for now. - Avoid nephrotoxins. (6) History of hypertension: Code(s): Z86.79 - Personal history of other diseases of the circulatory system Status: Chronic Assessment and Plan: - BP well controlled. -discontinue lisinopril due to hyperkalemia. Follow-up with primary care and Nephrology. Continued on medications. (7) Leukocytosis: Code(s): D72.829 - Elevated white blood cell count, unspecified Status: Acute Assessment and Plan: - Likely related to infected breast. - Resolved. (8) Seizures: Code(s): R56.9 - Unspecified convulsions Status: Acute Assessment and Plan: - Seizure precautions. - Continue Keppra. (9) Morbid obesity with BMI of 50.0-59.9, adult: Code(s): E66.01 - Morbid (severe) obesity due to excess calories; Z68.43 - Body mass index [BMI] 50.0-59.9, adult Status: Chronic Assessment and Plan: - BMI 53.2 - Encourage with lifestyle modification when stable. Plan Code Status: DNR DVT PPx: SCD's. Diet: Cardiac/Diabetic Anticipated LOS: > 2 days. F/u with PCP in 3-5 days F/u with Gen surgery as instructed and f/u with nephrology as laready scheduled Time Spent with Patient Time attestation: Total time spent providing and/or coordinating discharge services: DS: Data Data Completed and Pending Labs on day of discharge: Labs from last 24 hours 03/14/24 0
[2024-03-14 11:42] LABS: Glucose Point of Care 178 mg/dl (65-105)
[2024-03-14 12:22] LABS: Iron 89 ug/dL (37-170)
[2024-03-14 12:43] LABS: SARS-CoV-2 RNA PCR Negative (Negative)
--- NOTE | 2024-03-14 12:52 | PM.PNGS ---
Progress Note: A&P Assessment and Plan (1) Breast abscess: Code(s): N61.1 - Abscess of the breast and nipple Status: Acute Assessment and Plan: Okay to transition to oral antibiotics and discharge the patient back to the snf from a surgical standpoint. Continue wound VAC dressing changes 3 times a week. We will schedule her for follow-up with Dr. Osullivan in the wound clinic in 3 weeks. Plan I have discussed the patient's case and plan of care with Dr. Osullivan. Subjective Subjective Date/Time Seen: 03/14/24 12:52 Post Op day: 3 (Debridement and drainage right breast abscess) Patient reports: no new complaints and afebrile Interval history: No acute issues overnight. No complaints with wound VAC. Exam Const: General: comfortable and no acute distress Orientation/consciousness: patient oriented x3 Chest: Other: Right breast with wound vac dressing dry and intact, functioning well with scant bloody drainage in the canister Objective Data Vital Signs Vital Signs: Vital Signs - 24 hr 03/13/24 14:00 03/13/24 16:00 03/13/24 16:00 Temperature 97.1 F L Pulse Rate 74 75 75 Respiratory Rate 18 Blood Pressure 131/67 Pulse Oximetry 99 Oxygen Delivery 03/13/24 18:00 03/13/24 20:00 03/13/24 20:00 Temperature Pulse Rate 75 75 80 Respiratory Rate 18 Blood Pressure Pulse Oximetry 99 Oxygen Delivery Room Air 03/13/24 21:15 03/14/24 00:00 03/14/24 07:57 Temperature 98.3 F 97.9 F Pulse Rate 80 71 88 Respiratory Rate 17 20 Blood Pressure 114/65 124/72 Pulse Oximetry 99 97 Oxygen Delivery 03/14/24 09:04 Temperature Pulse Rate 80 Respiratory Rate Blood Pressure Pulse Oximetry Oxygen Delivery Intake/Output Intake/Output: Intake & Output 03/11/24 03/12/24 03/13/24 03/14/24 23:59 23:59 23:59 23:59 Intake Total 1608.3 3281.7 3743.3 952 Output Total 900 Balance 1608.3 3281.7 2843.3 952 Meds/Results Medications: Active Medications Generic Name Dose Route Start Last Admin Trade Name Freq PRN Reason Stop Dose Admin Acetaminophen 1,300 mg 03/11/24 15:42 Acetaminophen 325 Mg Tablet PO Q8H PRN Pain Acetaminophen 500 mg 03/11/24 18:12 03/13/24 02:55 Acetaminophen 500 Mg Tablet PO 500 mg Q6H PRN Administration Pain Rated 1-3 Albuterol 1 puff 03/11/24 15:42 Albuterol Sulfate (*Sp) Aerosol 1 Puff INHALATION TID PRN Shortness Of Breath Artificial Tears 2 drop 03/11/24 21:00 03/14/24 09:11 Artificial Tears Ophth Soln 15 Ml Bottle EACH EYE Not Given Q12HR LYLA Ascorbic Acid 1,000 mg 03/12/24 09:00 03/14/24 09:00 Ascorbic Acid 500 Mg Tablet PO 500 mg DAILY LYLA Administration Aspirin 81 mg 03/12/24 09:00 03/14/24 09:01 Aspirin 81 Mg Chewable Tablet PO 81 mg DAILY LYLA Administration Atorvastatin Calcium 40 mg 03/11/24 21:00 03/13/24 21:14 Atorvastatin 40 Mg Tablet PO 40 mg HS LYLA Administration Calcium Carbonate 400 mg 03/11/24 15:42 Calcium Carbonate (Tums) 500 Mg (200 Mg Elemental) PO TID PRN upset stomach Carvedilol 12.5 mg 03/11/24 21:00 03/14/24 09:04 Carvedilol 12.5 Mg Tablet PO 12.5 mg Q12HR LYLA Administration Citalopram Hydrobromide 40 mg 03/12/24 09:00 03/14/24 09:02 Citalopram Hydrobromide 20 Mg Tablet PO 40 mg DAILY LYLA Administration Dextrose 12.5 gm 03/11/24 15:47 Dextrose 50% 25 Gm/50 Ml Syringe IV PUSH PRN PRN Hypoglycemia Protocol Docusate Sodium 100 mg 03/11/24 21:00 03/14/24 09:01 Docusate Sodium 100 Mg Capsule PO 100 mg Q12HR LYLA Administration Doxycycline Hyclate 100 mg 03/13/24 13:00 03/14/24 09:01 Doxycycline Hyclate 100 Mg Tablet PO 03/20/24 23:59 100 mg Q12HR LYLA Administration Empagliflozin 25 mg 03/12/24 09:00 03/14/24 09:00 Empagliflozin 25 Mg Tablet PO 25 mg DAILY LYLA Administration Enoxaparin Sodium 40 mg 0
[2024-03-14 13:15] LABS: Folic Acid 11.4 ng/mL (2.76->20)
[2024-03-14 13:23] LABS: Percent Iron Saturation 31 % (20-50)
== END 2024-03-14 14:10 | disposition home or self-care (01) | DRG 385 ==
LOC: ANHED 03-11 04:14 → ANH3MED 03-11 04:42 → ANHIMU 03-12 02:33 → ANH3MEDSUR 03-13 23:01
PROVIDERS: Nurse Practitioner Adult Health; Student in an Organized Health Care Education/Training Program; Surgery; Admitting Provider Internal Medicine; Emergency Provider Physician Assistant; Visit Provider Internal Medicine
PROC: 0JB60ZZ Excision of Chest Subcutaneous Tissue and Fascia, Open Approach (ICD-10-PCS; principal; 2024-03-11 16:00)
DX: N61.1 Abscess of the breast and nipple (principal); N17.9 Acute kidney failure, unspecified; I25.10 Atherosclerotic heart disease of native coronary artery without angina pectoris; I12.9 Hypertensive chronic kidney disease with stage 1 through stage 4 chronic kidney disease, or unspecified chronic kidney disease; N18.9 Chronic kidney disease, unspecified; E87.5 Hyperkalemia; E11.22 Type 2 diabetes mellitus with diabetic chronic kidney disease; E78.5 Hyperlipidemia, unspecified; E66.01 Morbid (severe) obesity due to excess calories; K21.9 Gastro-esophageal reflux disease without esophagitis; R56.9 Unspecified convulsions; B95.62 Methicillin resistant Staphylococcus aureus infection as the cause of diseases classified elsewhere; Z11.52 Encounter for screening for COVID-19; Z68.43 Body mass index [BMI] 50.0-59.9, adult; Z79.82 Long term (current) use of aspirin; Z79.4 Long term (current) use of insulin; Z87.891 Personal history of nicotine dependence
CPT/HCPCS: 36415; 80048; 82565; 82607; 82728; 82746; 82948; 83036; 83540; 83550; 83605; 85025; 85027; 85610; 85652; 86140; 87040; 87070; 87075; 87081; 87181; 87205; 87635; 93005; 96365; 96367; 99285; A9270; G0378; G0379; J0692; J1100; J1650; J1815; J1836; J2250; J2405; J2704; J3010; J3370; J7030; J7040; J7120

== ENCOUNTER 2025-07-13 18:48 | Observation (INO) | payer OTHER, SELFPAY ==
[2025-07-13] VITALS (34 sets, daily range): BP systolic 124–163; BP diastolic 76–126; PULSE 86–106; RESP 17–29; TEMP 37.1; O2SAT 90–100; BMI 57.5
--- NOTE | ~2025-07-13 | CT_ITS ---
EXAM/PROCEDURE: CT abdomen pelvis wo con HISTORY: abdominal wall/pannus infection COMPARISON: None available. TECHNIQUE: Noncontrast CT of the abdomen and pelvis performed NOTE: Exam limited with significant portions of the extra peritoneal soft tissues particularly on the right side excluded from [id number], as well as by directed noncontrast technique. FINDINGS: Incompletely visualized moderately extensive Infiltrative changes noted in the right-sided extraperitoneal soft tissues, particularly in the flank region. No clearly defined drainable fluid collection seen. No acute process seen in the intraperitoneal contents. No hydroureteronephrosis, AAA, or gross CT evidence of acute cholecystitis pancreatitis or appendicitis. Fibroid appearing changes in the anteflex uterus. Adnexal regions unremarkable. Mild scattered diverticuli disease with no gross acute diverticulitis. Small to moderate amount of stool extends to the cecum. Lung bases clear. Heart size normal. Coronary calcifications noted. Degenerative changes noted throughout the bones. IMPRESSION: 1. Directed exam demonstrating moderately extensive infiltrative changes in the right anterolateral subcutaneous soft tissues consistent with cellulitis or acute inflammatory/infectious process. This area is incompletely visualized as portions are excluded from the [id number]. 2. Other findings as above. NOTE: Preliminary radiology report provided by [facility] radiologist. Reviewed, dictated and finalized at location A. [employer] IMPRESSION: 1. Directed exam demonstrating moderately extensive infiltrative changes in the right anterolateral subcutaneous soft tissues consistent with cellulitis or ac genoveva inflammatory/infectious process. This area is incompletely visualized as po rtions are excluded from the [id number]. 2. Other findings as above. NOTE: Preliminary radiology report provided by [facility] radiologist.
--- NOTE | 2025-07-13 19:26 | ED.GENADULT ---
HPI - General Adult General Chief complaint: Wound/Laceration Stated complaint: abcess Time Seen by Provider: 07/13/25 19:04 Source: patient Mode of arrival: EMS Limitations: no limitations History of Present Illness HPI narrative: Patient is a 60-year-old female presents to the emergency department complaining of redness in her right lower abdomen. Patient notes that she noticed that on , saw her ENT that same day for an ear infection and was placed on cefdinir, has been taking the cefdinir as prescribed and the redness in her right lower abdomen has been progressively getting worse and more painful and spreading more. Patient notes that she has a history of this in the past, sees Dr. Osullivan, has hidradenitis suppurativa. Denies any known fevers but has been complaining low-grade fever. Denies any nausea or vomiting. Related Data Home Medications ?Medication ?Instructions ?Recorded ?Confirmed ?Last Taken ?Type acetaminophen 650 mg 1,300 mg PO Q8H PRN Pain 03/11/24 07/14/25 Unknown History tablet,extended release albuterol sulfate 90 mcg/actuation 1 puff inhalation TID PRN 03/11/24 07/14/25 Unknown History aerosol inhaler Shortness Of Breath alendronate 70 mg tablet 70 mg PO WEEKLY 03/11/24 07/14/25 Unknown History aspirin 81 mg chewable tablet 81 mg PO DAILY 03/11/24 07/14/25 Unknown History atorvastatin 40 mg tablet 40 mg PO HS 03/11/24 07/14/25 Unknown History cetirizine 10 mg tablet 10 mg PO DAILY PRN allergies 03/11/24 07/14/25 Unknown History cholecalciferol (vitamin D3) 25 50 mcg PO DAILY 03/11/24 07/14/25 Unknown History mcg (1,000 unit) tablet citalopram 40 mg tablet 40 mg PO DAILY 03/11/24 07/14/25 Unknown History dapagliflozin propanediol 10 mg 10 mg PO DAILY 03/11/24 07/14/25 Unknown History tablet (Farxiga) docusate sodium 100 mg capsule 100 mg PO BID 03/11/24 07/14/25 Unknown History fluticasone propionate 50 2 spray intranasal DAILY 03/11/24 07/14/25 Unknown History mcg/actuation nasal spray,suspension gabapentin 400 mg capsule 400 mg PO TID 03/11/24 07/14/25 Unknown History levetiracetam 750 mg tablet 750 mg PO BID 03/11/24 07/14/25 Unknown History liraglutide 0.6 mg/0.1 mL (18 mg/3 1.8 mg subcut HS 03/11/24 07/14/25 Unknown History mL) subcutaneous pen injector (Victoza 3-Kush) melatonin 5 mg tablet 5 mg PO HS 03/11/24 07/14/25 Unknown History nitroglycerin 0.4 mg sublingual 0.4 mg sublingual Q5-15M PRN Chest 03/11/24 07/14/25 Unknown History tablet Pain polyethylene glycol 3350 17 17 g PO DAILY 03/11/24 07/14/25 Unknown History gram/dose oral powder (Miralax) sodium chloride 0.65 % nasal spray 2 spray intranasal Q2H PRN 03/11/24 07/14/25 Unknown History aerosol (Saline Nasal) allergies trazodone 100 mg tablet 150 mg PO HS 03/11/24 07/14/25 Unknown History venlafaxine 150 mg 150 mg PO DAILY 03/11/24 07/14/25 Unknown History capsule,extended release 24 hr carvedilol 12.5 mg tablet 25 mg PO BID 06/10/24 07/14/25 Unknown History valsartan 320 1 tablet PO DAILY 06/10/24 07/14/25 Unknown History mg-hydrochlorothiazide 25 mg tablet insulin regular hum U-500 conc 500 100 unit subcut QPM 07/01/24 07/14/25 Unknown History unit/mL(3 mL) subcut pen (Humulin R U-500 (Conc) Insulin Kwikpen) isosorbide dinitrate 30 mg tablet 30 mg PO BID 07/01/24 07/14/25 Unknown History megestrol 40 mg tablet 80 mg PO BID 07/01/24 07/14/25 Unknown History aluminum-mag hydroxide-simethicone 5 ml PO Q6H PRN indigestion 07/14/25 07/14/25 Unknown History 200 mg-200 mg-20 mg/5 mL oral susp (Advanced Antacid-Antigas) bisacodyl 5 mg tablet 5 mg PO DAILY PRN constipation 07/14/25 07/14/25 Unknown History cefdinir 300 mg capsule 300 mg PO Q12H 07/14/25 07/14/25 Unknown History furosemide 40 mg tablet 40 mg PO DAILY 07/14/25 07/14/25 Unknown History insulin regular hum U-500 conc 500 150 unit subcut QNOON 07/14/25 07/14/25 Unknown History unit/mL(3 mL) subcut pen (Humulin R U-500 (Conc) Insulin Kwikpen) menthol 1 applic topical TID PRN pain 07/14/25 07/14/25 Unknown History naproxen 250 mg tablet See Rx Instructions PO DAILY PRN 07/14/25 07/14/25 Unknown History pain nifedipine 60 mg tablet,extended 60 mg PO DAILY 07/14/25 07/14/25 Unknown History release polyvinyl alcohol-povidone (PF) 2 drp EACH EYE BID PRN dry eye(s) 07/14/25 07/14/25 Unknown History 1.4 %-0.6 % eye drops in a dropperette (Refresh Classic (PF)) potassium chloride 10 mEq 10 meq PO DAILY 07/14/25 07/14/25 Unknown History capsule,extended release Allergies Allergy/AdvReac Type Severity Reaction Status Date / Time codeine Allergy Severe Itching Verified 07/14/25 00:52 metformin Allergy Severe Diarrhea,Kidney Verified 07/14/25 00:52 disease Anesthetics - Amide Type - Allergy Intermediate Rash Verified 07/14/25 00:52 Select A exenatide (From Bydureon) Allergy Mild Rash Verified 07/14/25 00:52 latex Allergy Mild Rash Verified 07/14/25 00:52 Review of Systems Review of Systems: A 10 system review of systems was completed on the patient and is negative except for what is stated in the HPI. Nursing and ancillary documentation was reviewed. [facility] Past Medical History Medical History History of gastroesophageal reflux (GERD) History of hypertension Hyperlipidemia Morbid obesity with BMI of 50.0-59.9, adult Type 2 diabetes mellitus Surgical History Surgical History History of knee surgery History of tubal ligation Family History Family History (Updated 07/14/25 @ 01:10 by Dianelys Waterman RN) Mother Acute myocardial infarction Cerebrovascular accident Congestive heart failure Diabetes mellitus Hypertension Sibling Diabetes mellitus Father Epilepsy Social History Social History Smoking packs per day: 1 Smoking cigarettes per day: 20.0 Years smoked: 30 Smoking pack-years: 30.00 Smoking status: Former smoker Second hand tobacco smoke exposure: No Alcohol intake: never Substance use: never Substance use type: does not use Lack of Transportation: No Lack of Food: Never True Current Housing: I Have Housing Concerned About Future Housing: No Difficulty Paying Gas/Electric Bills: No Difficulty Paying for Meds: No Currently Unemployed: No Education: High School Diploma/GED Difficulty w/ Childcare or Family Care: No Spiritual care concerns: No Exam Narrative: CONST: No acute distress. Well nourished. Obese. HENMT: Head is normocephalic and atraumatic. tacky mucous membranes. No posterior oropharynx erythema. EYES: No scleral icterus. No conjunctival injection or pallor. PERRL. NECK: No meningeal signs. RESP: Able to speak in full sentences. Normal respiratory effort. CTAB. CARDIO: Regular rate. Regular rhythm. 2+ DP and radial pulses bilaterally. GI: Nondistended. Soft. Right lower abdomen/pannus is diffuse erythema, warmth, tenderness to palpation, no palpable fluctuance, mild induration is present, no crepitus. : No CVA tenderness to palpation. SKIN: No rashes or lesions noted on exposed skin. NEURO: Oriented x3. Moves all extremities. EXTREM/MSK/BACK: No pedal edema. PSYCH: Normal affect. Course Vital Signs Vital signs: Vital Signs Temperature 98.8 F 07/13/25 18:49 Pulse Rate 94 07/13/25 18:49 Respiratory Rate 20 07/13/25 18:49 Blood Pressure 163/92 H 07/13/25 18:49 Pulse Oximetry 96 07/13/25 18:49 Oxygen Delivery Room Air 07/13/25 18:49 Temperature 97.1 F L 07/14/25 05:34 Pulse Rate 86 07/14/25 05:34 Respiratory Rate 20 07/14/25 05:34 Blood Pressure 143/77 H 07/14/25 05:34 Pulse Oximetry 99 07/14/25 05:34 Oxygen Delivery Nasal Cannula 07/13/25 20:49 Oxygen Flow Rate 2 07/13/25 20:49 [facility] Narrative Medical decision making narrative: Patient presents with the above complaint. Initial vitals are remarkable for no significant abnormalities. Physical examination as noted above. Plan discussed: laboratory analysis, imaging. Patient ordered IVF, analgesia, blood cultures, vancomycin, continuous cardiac monitoring, continuous pulse oximetry. Given patient is already been on oral antibiotics for 48 hours with progressive worsening of skin infection will plan for IV antibiotics. CT of the abdomen pelvis preliminary findings radiology impression is ventral wall cellulitis, incompletely imaged. Visualized portions demonstrate muscle continues gas or discrete fluid collection. No acute intra-abdominal abnormality. No bowel obstruction or inflammation. Normal appendix. No hydronephrosis or renal calculus. Urinary bladder wall thickening, nonspecific. Correlate with urinalysis. Hepatic steatosis and hepatomegaly. I spoke with the hospitalist on-call who has accepted the patient for admission. Differential Diagnosis Differential Diagnosis: Cellulitis, erysipelas, abscess. Medical Records I have reviewed the following patient records and this information was taken into consideration when formulating the assessment and plan.: previous labs and previous ER visits Lab Data [facility] Lab Attestation statement: I personally reviewed the patient's lab results. Lab results narrative: CBC reveals a hemoglobin of 11.6. Coags are within normal limits. Comprehensive metabolic panel reveals a sodium 136, creatinine of 2.35, BUN of 49, glucose of 231. CRP is 5.3. Magnesium is 1.7. Lactic acid is 1.1. When compared to most recent creatinine on file patient has an STEPHEN. 07/14/25 05:04 07/14/25 05:04 Labs: Lab Results 07/13/25 07/13/25 Range/Units 20:29 22:00 WBC 9.7 (4.5-10.0) K/mm3 RBC 3.71 L (4.2-5.4) M/mm3 Hgb 11.6 L (12.0-15.0) g/dL Hct 34.9 L (37.0-47.0) % MCV 94.1 (80-100) fl MCH 31.3 (26-34) pg MCHC 33.2 (32-36) g/dl RDW 12.8 (11.5-14.5) % Plt Count 208 (150-375) k/mm3 MPV 9.4 (7.4-10.4) fl Immature Gran % (Auto) 0.5 (0-0.5) % Neut % (Auto) 73.6 H (45.5-73.1) % Lymph % (Auto) 13.8 L (18.3-44.2) % Becker % (Auto) 6.6 (2.6-8.5) % Eos % (Auto) 4.9 H (0-4.4) % Baso % (Auto) 0.6 (0.2-1.2) % Lymph # (Auto) 1.34 (0.9-3.2) K/mm3 Becker # (Auto) 0.6 (0.1-0.6) K/mm3 Eos # (Auto) 0.5 H (0-0.3) K/mm3 Baso # (Auto) 0.1 (0.0-0.1) K/mm3 Abs Immat Gran (auto) 0.05 H (0.00-0.031) K/mm3 Absolute Neuts (auto) 7.1 H (1.3-6.7) K/mm3 Absolute Nucleated RBC 0.000 (0.0-0.012) K/mm3 Nucleated RBC % 0.0 (0.0-0.2) % PT 14.1 (11.1-14.7) Seconds INR 1.1 APTT 30.7 (22.3-36.8) Seconds Sodium 136 L (137-145) mmol/L Potassium 4.7 (3.4-5.0) mmol/L Chloride 105 (98-107) mmol/L Carbon Dioxide 24 (22-30) mmol/L Anion Gap 7 (4-12) mmol/L BUN 49 H D (7-17) mg/dL Creatinine 2.35 H (0.7-1.0) mg/dL Estim Creat Clear Calc 32 ml/min Estimated GFR 21 L (59 - ) Glucose 231 H (65-110) mg/dL Hemoglobin A1c 8.2 H (<5.7) % Lactic Acid 1.1 (0.7-2.0) mmol/L Calcium 9.7 (8.4-10.2) mg/dL Magnesium 1.7 (1.6-2.3) mg/dL Total Bilirubin 0.3 (0.2-1.3) mg/dL AST 24 (14-36) U/L ALT 26 (6-35) U/L Alkaline Phosphatase 91 (38-126) U/L C-Reactive Protein 5.3 H (<1.0) mg/dL Total Protein 8.2 (6.3-8.2) g/dL Albumin 4.2 (3.5-5.1) g/dL Urine Color Yellow (Yellow) Urine Appearance Clear (Clear) Urine pH 5.5 (5.0-9.0) Ur Specific [place] 1.022 (1.001-1.035) Urine Protein 3+ H (Negative) mg/dL Urine Glucose (UA) 3+ H (Negative) mg/dL Urine Ketones Negative (Negative) mg/dL Ur Blood (Man) Negative (Negative) Urine Nitrate Negative (Negative) Urine Bilirubin Negative (Negative) Urine Urobilinogen 0.2 (<2.0) mg/dL Leukocyte Esterase Rfl Negative (Negative) FAY/UL Urine RBC 3-5 H (0-2) /hpf Urine WBC 0-5 (0-3) /hpf Ur Squamous Epith Cells Occasional (Few) /hpf Urine Bacteria Rare /hpf Urine Casts 0-2 Discharge Plan Discharge Clinical Impression: STEPHEN (acute kidney injury), Cellulitis Patient Disposition: Still a Patient Condition: Stable Time of Disposition: 23:04
--- OUTSIDE RECORDS SUMMARY | 2025-07-13 19:31 | XMS_ITS | Clinical Summary ---
Author Organization [facility] Medical Office Building [address] Address [address] [place] [address] Care Team Providers Care Model And Dye Person Name Role Phone Sushant Patel MD Primary Care Provider [phone] Allergies Active Allergy Reactions Criticality Noted Date Comments Adhesive Tape-Silicones Rash Medium 05/13/2024 Exenatide Microspheres Itching Low 04/11/2023 Codeine Itching,Other (See comments),Rash Medium 03/30/2015 Exenatide Itching Low 01/30/2023 Latex Itching Low 04/11/2023 Latex, Natural Rubber Rash Medium 12/20/2017 Metformin Itching Low 04/11/2023 Medications levETIRAcetam (KEPPRA) 750 mg tablet Take 1 tablet (750 mg total) by mouth 2 (two) times a day 970 Active gabapentin (NEURONTIN) 400 mg capsule Take 1 capsule (400 mg total) by mouth 3 (three) times a day 970 Active citalopram (CeleXA) 40 mg tabletIndicatio ns:Anxiety with Depression Take 1 tablet (40 mg total) by mouth every morning 970 Active ascorbic acid 500 mg tablet,chewable Take 2 tablet/chew tab (1,000 mg total) by mouth every morning Active fluticasone propionate (FLONASE) 50 mcg/actuation nasal spray Administer 2 sprays into each nostril every morning 023 Active aspirin 81 mg chewable tablet Take 1 tablet (81 mg total) by mouth every morning Active nitroglycerin (NITROSTAT) 0.[address] 1 tablet (0.4 mg total) under the tongue every 5 (five) minutes as needed 970 Active albuterol HFA (PROVENTIL HFA,VENTOLIN HFA,PROAIR HFA) 90 mcg/actuation inhaler Inhale 1 puff every 8 (eight) hours as needed for shortness of breath 970 Active melatonin 5 mg capsule Take 1 tablet by mouth as needed Active alendronate (FOSAMAX) 70 mg tablet Take 1 tablet (70 mg total) by mouth every 7 days On 023 Active isosorbide dinitrate (ISORDIL) 30 mg tablet Take 1 tablet (30 mg total) by mouth 2 (two) times a day 970 Active carvediloL (COREG) 12.5 mg tabletIndicatio ns:hypertension Take 2 tablets (25 mg total) by mouth 2 (two) times a day with meals 023 Active cholecalciferol (VITAMIN D-3) 2000 unit tablet Take 1 tablet (2,000 Units total) by mouth every morning 023 Active multivitamin-Ca -iron-minerals tablet Take 1 tablet by mouth every morning Active docusate sodium (COLACE) 100 mg capsule Take 1 capsule (100 mg total) by mouth 2 (two) times a day Active polyethylene glycol (MIRALAX) 17 gram packet Take 1 packet (17 g total) by mouth every morning Active Victoza 2-Kush 0.6 mg/0.1 mL (18 mg/3 mL) injectionIndica tions:type 2 diabetes mellitus Inject 1.8 mg under the skin nightly Active dapagliflozin propanediol (FARXIGA) 10 mg tablet Take 1 tablet (10 mg total) by mouth materials branch chief before breakfast E11.65 90 tablet 3 024 Active cetirizine (ZyrTEC) 10 mg tablet Take 1 tablet (10 mg total) by mouth as needed for allergies or rhinitis Active valsartan-hydro chlorothiazide (DIOVAN-HCT) 320-25 mg per tabletIndicatio ns:hypertension Take 1 tablet by mouth every morning Active atorvastatin (LIPITOR) 40 mg tabletIndicatio ns:hyperlipidem ia Take 1 tablet (40 mg total) by mouth nightly Active artificial tears (SYSTANE) 0.3 % gel Apply 2 drops to both eyes 2 (two) times a day Active loperamide (IMODIUM) 2 mg capsule Take 1 capsule (2 mg total) by mouth 4 (four) times a day as needed for diarrhea Active sodium chloride (OCEAN) 0.65 % nasal spray Administer 1 spray into each nostril as needed for rhinitis Active diclofenac sodium (VOLTAREN) 1 % gel Apply topically 2 (two) times a day as needed (pain) Active megestroL (MEGACE) 40 mg tablet Take 2 tablets (80 mg total) by mouth 2 (two) times a day 120 tablet 11 025 2025 Active furosemide (LASIX) 40 mg tablet Take 1 tablet (40 mg total) by mouth daily Active guaiFENesin (ROBITUSSIN) 400 mg tablet Take 1 tablet (400 mg total) by mouth every 6 (six) hours as needed Active NIFEdipine XL 60 mg 24 hr tablet 025 Active insulin regular U-500 (HumuLIN R U-500) 500 unit/mL (3 mL) CONCENTRATED pen for injectionIndica tions:Type 2 diabetes mellitus with hyperglycemia, with long-term current use of insulin (HCC) Inject 150 units in am and 100 units in pm. Call for blood sugars below 80. E11.65 27 mL 4 025 Active FreeStyle Ry 3 Plus Sensor device 025 Active potassium chloride ER 10 mEq CR capsule 025 Active peg 400-propylene glycol (Systane, propylene glycoL,) 0.4-0.3 % ophthalmic solution Administer 2 drops into affected eye(s) 2 (two) times a day 024 Active traZODone (DESYREL) 150 mg tablet 025 Active venlafaxine XR (EFFEXOR-XR) 150 mg 24 hr capsule 025 Active insulin lispro (HumaLOG, ADMELOG) 100 unit/mL pen for injectionIndica tions:type 2 diabetes mellitus Inject 7-17 Units under the skin 3 (three) times a day before meals As per sliding scale. Humalog sliding scale at meals for blood sugar greater than 200. If blood sugar 201 - 210 = 7 UNITS, 211 - 220 = 8 UNITS, 221 - 230 = 9 UNITS, 231 - 240 = 10 UNITS, 241 - 250= 11 UNITS, 251 - 260 =12 UNITS, 261 - 270 =13 UNITS, 271 - 280 = 14 UNITS, 281 - 290 = 15 UNITS, 290 - 300 = 16 UNITS, >300 = 17 UNITS . Total daily dose. 51 units. E11.65 60 mL 4 025 Active venlafaxine 150 mg tablet extended release 24hr 24 hr tabletIndicatio ns:Anxiety with Depression Take 1 tablet (150 mg total) by mouth every morning 023 2024 Discontinued traZODone (DESYREL) 100 mg tablet Take 1 tablet (100 mg total) by mouth nightly 024 2024 Discontinued insulin lispro (HumaLOG, ADMELOG) 100 unit/mL pen for injection 025 2024 Discontinued(R eorder) FreeStyle Ry 3 Plus Sensor device 1 Device continuously E11.65 6 each 4 025 2024 Active Problems Patient Care Coordination No te Formatting of this note migh t be different from the original. 58 y.o. with complex endometrial hyperplasia with foci suspicious for adenocarcinoma -Admitted 11/2023 for vaginal bleeding. DC on provera 40mg BID -11/2023 US 11 x 6 x 7cm uterus, 22 mm heterogenous stripe -06/04/24: s/p D&C and IUD placement - path: progestin effect Plan 11.5.25: -Compliant with meds? -Continue IUD and Megace -EmBx only if bleeding Problem Noted Date Diagnosed Date Freestyle Ry continuous glucose monitoring de vice 08/08/2024 Assessment & Plan (07/08/2025 12:56 PM REAL ESTATE LEASING MANAGER): Continuous glucose monitor (cgm) applied from 06/25/2025 to 07/08/2025 This device was placed for monitor and treatment of blood sugar. Interpretation of data- average glucose 231. Hypoglycemia 0%. In target range 24%. Hyperglycemia 76% Assessment & Plan (08/08/2024 11:04 AM REAL ESTATE LEASING MANAGER): Continuous glucose monitor (cgm) applied from 07/26 to 08/08/2024 This device was placed for monitor and treatment of blood sugar. Interpretation of data- average glucose 270. Hypoglycemia 1%. In target range 11%. Hyperglycemia 88% Hypertension associated with type 2 diabetes emmy litus 02/16/2024 Assessment & Plan (08/08/2024 10:57 AM REAL ESTATE LEASING MANAGER): This is a chronic condition which is at goal. Goal is less than 140/90 Continue carvedilol, valsartan/hydrochlorothiazide Encouraged to monitor weight and B/P at home. Assessment & Plan (02/16/2024 10:55 AM CDT): This is a chronic condition which is at goal. Goal is less than 140/90 Personally reviewed labs. Continue carvedilol, Lasix, lisinopril Encouraged to monitor weight and B/P at home. Explained correct way to take blood pressure. - After 5 minutes of sitting calmly with arm supported. Encouraged to void caffeine and excessive alcohol consumption as this will elevate B/P Encouraged to take medications as prescribed. Type 2 diabetes mellitus wit h hyperglycemia, with long-term current use of insulin 11/20/2023 Chronic lung disease 11/14/2023 Dependence on supplemental oxygen 11/14/2023 Chronic right mastoiditis 11/02/2023 Complex atypical endometrial hyperplasia 024 Overview (06/27/2025): - Diagnosed after she presented w/ PMBx 11/2023 - Path 11/2023 w/ CAH and foci concerning for adenocarcinoma w/ complex glandular formations; Admitted following EMBx for vaginal bleeding and started on progestin therapy; Evaluated by IPAP while inpatient and counseled regarding possible RA- TLH, BSO, SLNBx, however not a surgical candidate - Discussed continuing medical management and repeat biopsy w/ possible radiation if positive for cancer given high risk of surgical management. Pt declines and would like to move forward with surgery. - Recommended continuing to work on optimizing medical conditions and to discuss surgery with cardiology and nephrology for further risk assessment, most recent HgbA1c 10, worsening. -Admitted 11/2023 for vaginal bleeding. 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 EMS 27.8 mm. IUD not visualized. Plan: - Desires endometrial sampling in the OR rather than the office. Counseled on replacement of IUD at the time of sampling. Consents signed and case request placed for EUA, dilation and curettage, Mirena IUD placement. - Continue Megace 80mg BID - Discussed she is not a surgical candidate at this time and she no longer desires hysterectomy. Mastoiditis of left side 07/05/2023 Asymmetrical sensorineural hearing loss 04/27/20 23 Presbycusis 04/27/2023 Type 2 diabetes mellitus wit h stage 4 chronic kidney disease, with long-term current use of insulin 04/11/2023 Assessment & Plan (08/08/2024 10:56 AM REAL ESTATE LEASING MANAGER): This is a chronic condition which is worsening and not at goal with weight gain . Goal is less than 7%. Personally reviewed most recent A1c - Lab Results Component Value Date HGBA1C 9.2 08/08/2024 Personally reviewed POC blood sugar- elevated, not at goal of 80-180 Lab Results Component Value Date POCGLU 281 08/08/2024 Medication- increase U500 to 110 units in am and 75 units in pm. Continue victoza 1.8mg daily , Continue farxiga 10mg daily. Monitor blood sugar continuously with Konnektid ry cgm. Encouraged annual eye exam. last dilated eye exam was at [facility] and rehab Monofilament foot exam completed. Protective senses -intact Continue - Gabapentin eGFR- 27 Kidney function-abnormal see Dr. Barros in [place] Urine microalbumin/creatinine ratio - abnormal. Follows with nephrology. Goal is <30 Continue carvedilol, valsartan/hydrochlorothiazide Assessment & Plan (02/16/2024 10:50 AM CDT): This is a chronic condition which is improving and close to goal . Goal is less than 7%. Personally reviewed most recent A1c - last A1c by labs from [facility]- 7.3% see media Lab Results Component Value Date HGBA1C 9.0 11/03/2023 Personally reviewed POC blood sugar- not at goal of 80-180 Lab Results Component Value Date POCGLU 243 02/16/2024 Medication- continue U500 to 90 units twice daily. Continue victoza 1.8mg daily , Continue farxiga 5mg daily. Monitor blood sugar 4 times a day. Continuously with cgm as she is on U500 high risk insulin. Encouraged annual eye exam. Monofilament foot exam completed. Protective senses intact Treated with Gabapentin Personally reviewed [facility] eGFR- 27 Kidney function-abnormal. See dr. Barros in [place]. Assessment & Plan (11/03/2023 11:26 AM CDT): >>ASSESSMENT AND PLAN FOR TYPE 2 DIABETES MELLITUS, WITH LONG-TERM CURRENT USE OF INSULIN (HCC) WRITTEN ON 04/11/2023 3:24 PM BY DANUTA WALKER, BLACK TOPPER This is a chronic condition which is adequately controlled but not at goal of less than 7%. Personally reviewed most recent A1c - Lab Results Component Value Date HGBA1C 7.5 04/11/2023 Personally reviewed POC blood sugar- at goal 80-180 Lab Results Component Value Date POCGLU 175 04/11/2023 Medication- Continue stop Levemir and Humulin R . Total daily dose of insulin (207 units plus correctional insulin) start U500 to 80 units twice daily, increase victoza 1.8mg daily. Monitor blood sugar 3times a day. Call blood sugars on monday Encouraged annual eye exam. Monofilament foot exam completed. protective senses intact Requested recent labs from [facility] Urine microalbumin/creatinine ratio - goal <30. Labs request treated with lisinopril, carvedilol. On Erickson B/P today- at goal of <140/90. continue lisinopril, carvedilol Need LDL/lipid panel [facility] request Goal of less than 70. Continue atorvastatin Assessment & Plan (11/03/2023 11:26 AM CDT): This is a chronic condition which is worsening, not at goal of less than 7%. Personally reviewed most recent A1c - Lab Results Component Value Date HGBA1C 9.0 11/03/2023 Personally reviewed POC blood sugar- not at goal 80-180 Lab Results Component Value Date POCGLU 267 11/03/2023 Medication- increase U500 to 90 units twice daily. Continue victoza 1.8mg daily , Continue farxiga 5mg daily. Monitor blood sugar 2 times a day. Continuously with cgm. Encouraged annual eye exam. Monofilament foot exam completed. protective senses intact Takes gabapentin Personally reviewed CMP eGFR- 39. Sees Dr. Barros for nephrology Kidney function- abnormal B/P today- at goal of <140/90. continue hydrochlorothiazide, carvedilol, lisinopril, furosemide Personally reviewed lipid panel. Not at Goal of less than 70. Continue atorvastatin Assessment & Plan (11/03/2023 11:26 AM CDT): >>ASSESSMENT AND PLAN FOR TYPE 2 DIABETES MELLITUS WITH STAGE 3B CHRONIC KIDNEY DISEASE, WITH LONG-TERM CURRENT USE OF INSULIN (HCC) WRITTEN ON 07/12/2023 11:04 AM BY DANUTA WALKER, BLACK TOPPER This is a chronic condition which is worsening , inadequately controlled, not at goal of less than 7%. Personally reviewed most recent A1c - Lab Results Component Value Date HGBA1C 8.3 07/12/2023 Personally reviewed POC blood sugar- not at goal 80-180 Lab Results Component Value Date POCGLU 286 07/12/2023 Medication- continue U500 to 80 units twice daily. Stop victoza, start ozempic 0.25mg weekly for 4 weeks, on week #5 increase ozempic to 5mg weekly. Continue farxiga 5mg daily. Requested [facility] to send blood sugars in 1 week. Monitor blood sugar 2 times a day. Continuously with dexcom 7 sensor. Encouraged annual eye exam. Monofilament foot exam completed. protective senses intact Personally reviewed CMP eGFR- 39 Kidney function- abnormal Urine microalbumin/creatinine ratio - goal <30 Treated with losartan, carvedilol, Lasix, lisinopril, hydrochlorothiazide B/P today- at goal of <140/90. continue losartan, carvedilol, Lasix, lisinopril, hydrochlorothiazide Personally reviewed lipid panel. at Goal of less than 70. Continue atorvastatin >>ASSESSMENT AND PLAN FOR TYPE 2 DIABETES MELLITUS, WITH LONG-TERM CURRENT USE OF INSULIN (HCC) WRITTEN ON 07/12/2023 11:00 AM BY DANUTA WALKER NP This is a chronic condition which is worsening , inadequately controlled, not at goal of less than 7%. Personally reviewed most recent A1c - Lab Results Component Value Date HGBA1C 8.3 07/12/2023 Personally reviewed POC blood sugar- not at goal 80-180 Lab Results Component Value Date POCGLU 286 07/12/2023 Medication- continue U500 to 80 units twice daily. Stop victoza, start ozempic 0.25mg weekly for 4 weeks, on week #5 increase ozempic to 5mg weekly. Continue farxiga 5mg daily. [facility]. Monitor blood sugar 2 times a day. Continuously with dexcom 7 sensor. Encouraged annual eye exam. Monofilament foot exam completed. protective senses intact Personally reviewed CMP eGFR- 39 Kidney function- abnormal Urine microalbumin/creatinine ratio - goal <30 Treated with losartan, carvedilol, Lasix, lisinopril, hydrochlorothiazide B/P today- at goal of <140/90. continue losartan, carvedilol, Lasix, lisinopril, hydrochlorothiazide Personally reviewed lipid panel. at Goal of less than 70. Continue atorvastatin Stage 3b chronic kidney disease 01/31/2023 Arthritis 12/07/2022 Neuropathy 12/07/2022 Class 3 severe obesity due t o excess calories with body mass index (BMI) of 50.0 to 59.9 in adult 12/07/2022 Assessment & Plan (08/08/2024 11:02 AM REAL ESTATE LEASING MANAGER): >>ASSESSMENT AND PLAN FOR BMI 50.0-59.9, ADULT ([facility]) WRITTEN ON 04/11/2023 3:26 PM BY DANUTA WALKER BLACK TOPPER This is a chronic condition which continues Limited exercise due to limited walking/wheelchair and walker usage Encouraged as much activity as can tolerate Increase Victoza to 1.8 mg daily Assessment & Plan (08/08/2024 11:02 AM REAL ESTATE LEASING MANAGER): >>ASSESSMENT AND PLAN FOR BMI 50.0-59.9, ADULT (HCC) WRITTEN ON 07/12/2023 11:06 AM BY DANUTA WALKER NP This is a chronic condition which has increased by 2 lb since last office visit Will stop Victoza and switch to Ozempic hoping for some weight loss Also started on Farxiga which may cause a few lb weight loss Encouraged healthy eating Activities limited, uses a wheelchair for long distances Assessment & Plan (08/08/2024 11:02 AM REAL ESTATE LEASING MANAGER): >>ASSESSMENT AND PLAN FOR BMI 50.0-59.9, ADULT (HCC) WRITTEN ON 11/03/2023 11:28 AM BY DANUTA WALKER, ARIE This is a chronic condition which is stable No weight gain since last office visit She uses a wheelchair for long distance as she can not walk very far Encouraged healthy eating Continue Victoza until discontinue Assessment & Plan (08/08/2024 10:59 AM REAL ESTATE LEASING MANAGER): This is a chronic condition which continues to worse 9 lbs. Weight gain since last office visit Continue Victoza Encouraged healthy eating which includes a low carb diet. Avoiding processed foods, sweets and fried foods. Encouraged 30 minutes of walking at least 5 days per week Discussed that exercise can be broken down into small sessions- for example 2- 15 minutes sessions or 3- 10 minutes sessions. Assessment & Plan (02/16/2024 10:53 AM CDT): This is a chronic condition which continues 22 lbs. Weight loss since last office visit Encouraged healthy eating which includes a low carb diet. Avoiding processed foods, sweets and fried foods. Encouraged 30 minutes of walking at least 5 days per week Discussed that exercise can be broken down into small sessions- for example 2- 15 minutes sessions or 3- 10 minutes sessions. Leg edema 12/07/2022 Other cerebrovascular disease 12/07/2022 Overview (10/30/2023): (History of) (History of) Mixed diabetic hyperlipidemi a associated with type 2 diabetes mellitus 12/07/2022 Assessment & Plan (08/08/2024 10:57 AM REAL ESTATE LEASING MANAGER): This is a chronic condition which is at goal . Goal is LDL less than 70 Continue atorvastatin Encouraged to eat healthy, include fresh fruits and vegetables daily and avoid eating fried foods more than once per week. Assessment & Plan (02/16/2024 10:52 AM CDT): This is a chronic condition which is at goal . Goal is LDL less than 70 Continue atorvastatin. Encouraged to eat healthy, include fresh fruits and vegetables daily and avoid eating fried foods more than once per week. Encouraged to take medications as prescribed. Assessment & Plan (11/03/2023 11:27 AM CDT): This is a chronic condition which is at goal of LDL less than 70 Continue the atorvastatin Encouraged to eat healthy, include fresh fruits and vegetables daily and avoid eating fried foods more than once per week. Encouraged to take medications as prescribed. Gastro-esophageal reflux disease without esophag itis 12/07/2022 Depression 12/07/2022 Anxiety 12/07/2022 Overview (10/30/2023): (History of) (History of) Atherosclerosis of coronary artery bypass graft(s) without angina pectoris 12/07/2022 Vitamin D deficiency 12/07/2022 Other cerebrovascular disease 12/07/2022 Overview (11/20/2023): (History of) Carpal tunnel syndrome 01/24/2019 Closed bimalleolar fracture of left ankle 2018 Acquired trigger finger 08/27/2017 Osteoarthritis of knee 04/04/2017 Encounters Date Type Department Care Team Description 07/12/2025 Telephone [facility] Medicine Otolaryngology [address] [place] [address] Umm Hanson MS 07/08/2025 10:30 AM REAL ESTATE LEASING MANAGER Office Visit [facility] Diabetes Endocrine Care at [address] [place] [phone] Danuta Walker NP Type 2 diabetes mellitus with hyperglycemia, with long-term current use of insulin (HCC) (Primary Dx); Type 2 diabetes mellitus with stage 4 chronic kidney disease, with long-term current use of insulin (HCC); Hypertension associated with type 2 diabetes mellitus (HCC); Mixed diabetic hyperlipidemia associated with type 2 diabetes mellitus (HCC); Class 3 severe obesity due to excess calories with serious comorbidity and body mass index (BMI) of 50.0 to 59.9 in adult; Freestyle Ry continuous glucose monitoring device 07/08/2025 Telephone [facility] Obstetrics and Gynecology [address] [place] [address] 13th [place] [address] [place] [phone] Carlie Dwyer MD Surgery 06/27/2025 2:00 PM REAL ESTATE LEASING MANAGER Office Visit [facility] [address] [place] [id number] Complex atypical endometrial hyperplasia (Primary Dx); Post-menopausal bleeding; Class 3 severe obesity due to excess calories with serious comorbidity and body mass index (BMI) of 50.0 to 59.9 in adult; Dependence on supplemental oxygen; Type 2 diabetes mellitus with stage 4 chronic kidney disease, with long-term current use of insulin (HCC); Atherosclerosis of coronary artery bypass graft of [place] heart without angina pectoris 06/17/2025 Telephone [facility] Diabetes Endocrine Care at [address] [place] [address] Danuta Walker NP 06/11/2025 Telephone [facility] [address] [place] [address] [address]rd [address] [place] [phone] Hannah Lee RN 06/11/2025 Telephone [facility] [address] [place] [address] [address] [place] [phone] Sotero Diaz 05/27/2025 Telephone [facility] [address] [place] [address] 3rd [address] [place] [phone] Huma Shepherd RN 05/27/2025 Telephone [facility] [address] [facility] 3rd Floor [address] [place] [address] Miesha Hogue 05/13/2025 Telephone [facility] Medical [facility] Diabetes Endocrine Care at [address] [place] [address] Danuta Walker BLACK TOPPER from Last 3 Months Surgical History Surgery Date Site/Laterality Comments TUBAL LIGATION TONSILLECTOMY AND ADENOIDECTOMY ANKLE SURGERY Left TOTAL KNEE ARTHROPLASTY Bilateral REVISION TOTAL KNEE ARTHROPLASTY Right EAR SURGERY CARDIAC CATHETERIZATION 08/07/2016 - 08/06/2017 Medical History Medical History Date Comments Complex atypical endometrial hyperplasia 10/30/2023 Acquired trigger finger 08/27/2017 Anxiety 12/07/2022 Formatting of th is note might be different from the original. (History of)(History of) Arthritis 12/07/2022 Asymmetrical sensorineural hearing loss 04/27/20 Atherosclerosis of coronary artery bypass graft(s) without angina pectoris 12/07/2022 BMI 50.0-59.9, adult (HCC) 04/11/2023 Carpal tunnel syndrome 01/24/2019 Chronic lung disease 11/14/2023 Chronic right mastoiditis 11/02/2023 Closed bimalleolar fracture of left ankle 12/27/2018 Dependence on supplemental oxygen 11/14/2023 Depression 12/07/2022 Diabetes mellitus 11/20/2023 Gastro-esophageal reflux dis ease without esophagitis 12/07/2022 Leg edema 12/07/2022 Mastoiditis of left side 07/05/2023 Mixed diabetic hyperlipidemi a associated with type 2 diabetes mellitus (HCC) 12/07/2022 Morbid obesity (HCC) 12/07/2022 Neuropathy 12/07/2022 Osteoarthritis of knee 04/04/2017 Other cerebrovascular disease 12/07/2022 Fo rmatting of this note might be different from the original. (History of)(History of) Presbycusis 04/27/2023 Stage 3b chronic kidney disease (HCC) 01/31/2023 Type 2 diabetes mellitus wit h stage 3b chronic kidney disease, with long-term current use of insulin (HCC) 04/11/2023 Vitamin D deficiency 12/07/2022 Complex atypical endometrial hyperplasia 10/30/2023 -Discussed non surgical cand idate -Discussed medical management with progestins and close follow up with EmBx every 3-6 months -Discussed IUD, depoprovera and oral progestins, patient has opted for Provera Plan: -Provera 10 mg BID -Plan for repeat EmBx and TVUS in 3 months -Will plan for repeat EmBx q3-6 months pending results of biopsy and bleeding Family History Medical History Relation Name Comments Anesthesia problems Neg Hx Social History Tobacco Use Types Packs/Day Years Used Date Smoking Tobacco: Former Cigarettes Smokeless Tobacco: Never AUDIT-C Answer Date Recorded Q1: How often do you have a drink containing alcohol? Never 11/17/2023 Q2: How many drinks containi ng alcohol do you have on a typical day when you are drinking? Patient does not drink Q3: How often do you have si x or more drinks on one occasion? Never 11/17/2023 Hunger Vital Sign Answer Date Recorded Within the past 12 months, y ou worried that your food would run out before you got the money to buy more. Patient declined Within the past 12 months, t he food you bought just didn't last and you didn't have money to get more. Patient declined Personal Safety Answer Date Recorded Have you ever been in or are you currently in a harmful physical or emotional relationship or is someone making you feel afraid or unsafe? Denies 07/21/2024 Comments No Sex and Gender Information Value Date Recorded Sex Assigned at Not on file Legal Sex Female 4:53 PM REAL ESTATE LEASING MANAGER Gender Identity Not on file Sexual Orientation Not on file Obstetrics History Para Term AB IAB SAB Ectopic Multiple Livin g Live Births 4 3 2 1 1 1 1 4 4 Date Outcome GA Total Labor Labor/2nd/3rd Weight Sex Type Anes PTL Monalisa A1 A5 Name Clin 01/04 Term F Vaginal Living 1992 SAB 09/08 Term M Vaginal Living 06/15 34w 0d M Living 06/15 M Vaginal Living Last Filed Vital Signs Vital Sign Reading Time Taken Comments Blood Pressure 122/78 07/08/2025 10:51 AM REAL ESTATE LEASING MANAGER Pulse 87 06/27/2025 2:41 PM REAL ESTATE LEASING MANAGER Temperature 36.6 C (97.8 F) 12/18/2024 1:41 PM CDT Respiratory Rate 14 07/21/2024 10:3 0 AM REAL ESTATE LEASING MANAGER Oxygen Saturation 93% 06/27/2025 2:4 1 PM REAL ESTATE LEASING MANAGER Inhaled Oxygen Concentration - - Weight 153.3 kg (338 lb) 07/08/2025 10: 51 AM REAL ESTATE LEASING MANAGER weighed at home yesterday, wheelchair bound Height 165.6 cm (5' 5.2) 07/08/2025 10 :51 AM REAL ESTATE LEASING MANAGER Body Mass Index 55.9 07/08/2025 10:51 AM REAL ESTATE LEASING MANAGER Plan of Treatment Upcoming Encounters Date Type Department Care Team (Latest Contact Info) Description 09/02/2025 11:00 AM REAL ESTATE LEASING MANAGER Hospital Encounter [facility] Operating Room [address] [place] [address] Carlie Dwyer MD [address] [place] [address] 09/02/2025 11:00 AM REAL ESTATE LEASING MANAGER - 09/02/2025 12:55 PM REAL ESTATE LEASING MANAGER Surgery [facility] Operating Room [address] [place] [address] Carlie Dwyer MD [address] [place] [address] DILATION AND CURETTAGE Scheduled Procedures Name Priority Associated Diagnoses Date/Ti me DILATION AND CURETTAGE Complex atypical endometrial hyperplasia 09/02/2025 11:00 AM REAL ESTATE LEASING MANAGER EXAM UNDER ANESTHESIA Complex atypical endometrial hyperplasia 09/02/2025 11:00 AM REAL ESTATE LEASING MANAGER Health Maintenance Due Date Last Done Comments Albumin Creatinine Ratio, Urine 1963 Breast Cancer Screening-Mammogram 1963 Cervical Cancer Screening 1963 Colon Cancer Screening-Colonoscopy 1963 Depression Screening 1963 Hepatitis C Screening 1963 DTaP/Tdap/Td Vaccine (1 - Tdap) 1974 Hepatitis B Screening 1981 Regular Well Visit/Exam 18-64 1981 Zoster Vaccine (1 of 2) 1982 Pneumococcal vaccine <65 (2 of 2 - PPSV23, PCV20, or PCV21) 09/01/2020 07/07/2020 Influenza Vaccine (#1) 2025 07/07/2020 Foot Exam 08/08/2025 08/08/2024, 02/04, 11/03/2023, Additional history exists Hemoglobin A1C 01/06/2026 07/08/2025, 06/0 09/2024, 08/08/2024, Additional history exists Lipid Panel 05/20/2026 05/20/2025, 01/06, 11/07/2023, Additional history exists eGFR 05/20/2026 05/20/2025, 05/07, 01/29/2024, Additional history exists Dilated Eye Exam 06/05/2026 06/05/2025, , 05/23/2023 Goals Goal Patient Goal Type Associated Problems Recent Progress Patient-Stated? Author Autogenera sandy Goal Care Plan Autogenerated Problem No Ekaterina Briggs, [facility] Procedures Procedure Name Priority Date/Time Associated Diagnosis Comments POCT HEMOGLOBIN A1C Routine 07/08/2025 1 1:01 AM REAL ESTATE LEASING MANAGER Type 2 diabetes mellitus with hyperglycemia, with long-term current use of insulin (HCC) POCT GLUCOSE Routine 07/08/2025 10:59 AM REAL ESTATE LEASING MANAGER Type 2 diabetes mellitus with hyperglycemia, with long-term current use of insulin (HCC) DIABETIC EYE EXAM Routine 06/05/2025 BASIC METABOLIC PANEL Routine 05/20/2025 LIPID PANEL Routine 05/20/2025 EGFR Routine 05/20/2025 from Last 3 Months Results * (ABNORMAL) POCT hemoglobin A1c (07/08/2025 11:01 AM REAL ESTATE LEASING MANAGER) Hemoglobin A1C, POC 8.5(A) 4.0 - 5.6 % Blood 07/08/2025 11:0 1 AM REAL ESTATE LEASING MANAGER Danuta Walker [facility] [employer] POINT OF CARE TEST ORDERABLES E dited Result - Final * POCT glucose (07/08/2025 10:59 AM REAL ESTATE LEASING MANAGER) Glucose Blood, POC 289 Normal Fasting 70 - 100, Random <200 mg/dL Blood 07/08/2025 10:5 9 AM REAL ESTATE LEASING MANAGER Danuta Walker [employer] POINT OF CARE TEST ORDERABLES F inal Result * Diabetic Eye Exam (06/05/2025) 06/05/2025 Result [facility] Provider HEALTH MAINTENANCE Final Result * EGFR (05/20/2025) SCRIBED eGFR 24 >60 mL/min/1.73 m2 EXTERNAL LAB SCRIBED eGFR 24 >60 mL/min/1.73 m2 EXTERNAL LAB 05/20/2025 Narrative EXTERNAL LAB - 07/09/2025 8:48 AM REAL ESTATE LEASING MANAGER Care Everywhere Result [facility] Historical Provider HEALTH MAINTENANCE Final Result Performing Organization Address City/[facility]/ZIP Co de Phone Number EXTERNAL LAB * (ABNORMAL) Lipid panel (05/20/2025) SCRIBED Cholesterol, Total 149 30 - 199 mg/dL EXTERNAL LAB SCRIBED Triglycerides 181(A) <=149 mg/dL EXTERNAL LAB SCRIBED HDL 42 >=40 mg/dL EXTERNAL LAB SCRIBED LDL 71 <=129 mg/dL EXTERNAL LAB Scribed Non-HDL Cholesterol 0 NONE mg/dL EXTERNAL LAB SCRIBED Total Cholesterol/HDL Ratio 0 NONE EXTERNAL LAB Blood 05/20/2025 Narrative EXTERNAL LAB - 07/09/2025 8:49 AM REAL ESTATE LEASING MANAGER Care Everywhere Result [facility] Historical Provider LAB BLOOD ORDERABLES Lala l Result EXTERNAL LAB * (ABNORMAL) Basic metabolic panel (05/20/2025) SCRIBED Sodium 141 135 - 145 mmol/L EXTERNAL LAB SCRIBED Potassium 4.5 3.3 - 5.2 mmol/L EXTERNAL LAB SCRIBED Chloride 102.0 97 - 110 mmol/L EXTERNAL LAB SCRIBED Carbon Dioxide 25 22 - 32 mmol/L EXTERNAL LAB SCRIBED Anion Gap 0(A) 2 - 15 mmol/L EXTERNAL LAB SCRIBED Urea Nitrogen (BUN) 43(A) 6 - 25 mg/dL EXTERNAL LAB SCRIBED Creatinine 2.25(A) 0.60 - 1.10 mg/dL EXTERNAL LAB SCRIBED Glucose 1,000(A) 70 - 199 mg/dL EXTERNAL LAB SCRIBED Calcium 9.2 8.5 - 10.3 mg/dL EXTERNAL LAB SCRIBED eGFR 24 >60 mL/min/1.7 3 m2 EXTERNAL LAB SCRIBED eGFR 24 >60 mL/min/1.7 3 m2 EXTERNAL LAB Blood 05/20/2025 Narrative EXTERNAL LAB - 07/09/2025 8:47 AM REAL ESTATE LEASING MANAGER Care Everywhere [facility] Provider LAB BLOOD ORDERABLES Lala l Result EXTERNAL LAB from Last 3 Months Additional Health Concerns Active Problems Noted Date Diagnosed Date Autogenerated Problem 07/10/2025 Insurance [facility] [place] [address] [facility] [address] Advance Directives For more information, please contact: [phone] * Full Code (Latest Code Status on File) Date Activated Date Inactivated Comments 11/20/2023 3:49 AM 11/20/2023 6:12 PM Care Teams Model And Dye Person Relationship Specialty Start Date End Date Sushant Patel MD [address] [address] PCP - General Internal Medicine 03/23/23
--- OUTSIDE RECORDS SUMMARY | 2025-07-13 19:31 | XMS_ITS | Encounter Summary ---
Author Organization [facility] Address [address] [place] [address] Phone Care Team Providers Care Commercial Electrician Name Role Phone Sushant Patel MD Primary Care Provider [phone] Encounter Details Date Type Department Care Team (Late st Contact Info) Description 07/12/2025 Telephone [facility] Medicine Otolaryngology [address] [place] [id number] Umm Hanson, Social History Tobacco Use Types Packs/Day Years [...] on file Legal Sex Female 4:53 PM INTERVENTIONAL TECHNOLOGIST Gender Identity Not on file Sexual Orientation Not on file documented as of this encounter Miscellaneous Notes * Telephone Encounter - WilloughbyTeresa - 07/12/2025 11:32 AM CST Called x1 VM box full, no mychart - ref RVENTIONAL TECHNOLOGIST documented in this encounter Plan of Treatment Upcoming Encounters Date Type Department Care Team (Latest Contact Info) Description 09/02/2025 11:00 AM INTERVENTIONAL TECHNOLOGIST Hospital Encounter [facility] Operating Room [address] [place] [address] Carlie Dwyer MD [address] [place] [address] 09/02/2025 11:00 AM INTERVENTIONAL TECHNOLOGIST - 09/02/2025 12:55 PM INTERVENTIONAL TECHNOLOGIST Surgery [facility] Operating Room [address] [place] [address] Carlie Dwyer MD [address] [place] [address] DILATION AND CURETTAGE Scheduled Procedures Name Priority Associated Diagnoses Date/Ti me DILATION AND CURETTAGE Complex atypical endometrial hyperplasia 09/02/2025 11:00 AM INTERVENTIONAL TECHNOLOGIST EXAM UNDER ANESTHESIA Complex atypical endometrial hyperplasia 09/02/2025 11:00 AM INTERVENTIONAL TECHNOLOGIST documented as of this encounter Goals Goal Patient Goal Type Associated Problems Recent Progress Patient-Stated? Author Autogenera sandy Goal Care Plan Autogenerated Problem No Ekaterina Briggs RMA documented as of this encounter Visit Diagnoses Not on filedocumented in this encounter Additional Health Concerns Active Problems Noted Date Diagnosed Date Autogenerated Problem 07/10/2025 documented as of this encounter Care Teams Commercial Electrician Relationship Specialty Start Date End Date Sushant Patel MD [address] [place] [address] PCP - General Internal Medicine 03/23/23 documented as of this encounter
[2025-07-13] MEDS: ACETAMINOPHEN 500 MG TABLET 1000 MG PO (20:35)
[2025-07-13] MEDS: SODIUM CHLORIDE 0.9% IV 1,000 ML 150 ML IV CONT (20:36)
[2025-07-13 20:44] LABS: Hematocrit 34.9 % (37.0-47.0); Hemoglobin 11.6 g/dL (12.0-15.0); Immature Granulocyte Percent A 0.5 % (0-0.5); Lymphocytes Absolute Auto 1.34 K/mm3 (0.9-3.2); Mean Corpuscular HGB Conc 33.2 g/dl (32-36); Mean Corpuscular Hemoglobin 31.3 pg (26-34); Mean Corpuscular Volume 94.1 fl (80-100); Nucleated Red Blood Cells Absolute Auto 0.000 K/mm3 (0.0-0.012); Nucleated Red Blood Cells Perc 0.0 % (0.0-0.2); Platelet Count Result 208 k/mm3 (150-375); Red Blood Count 3.71 M/mm3 (4.2-5.4); White Blood Count 9.7 K/mm3 (4.5-10.0)
--- NOTE | 2025-07-13 20:50 | PC.NURSE ---
Report to Annia VALENCIA who assumed care of patient
[2025-07-13 20:54] LABS: INR 1.1; Prothrombin Time 14.1 Seconds (11.1-14.7)
[2025-07-13 20:55] LABS: Partial Thromboplastin Time 30.7 Seconds (22.3-36.8)
[2025-07-13 21:05] LABS: Alanine Aminotransferase 26 U/L (6-35); Albumin Level 4.2 g/dL (3.5-5.1); Alkaline Phosphatase 91 U/L (38-126); Anion Gap 7 mmol/L (4-12); Aspartate Amino Transferase 24 U/L (14-36); Bilirubin,Total 0.3 mg/dL (0.2-1.3); Blood Urea Nitrogen 49 mg/dL (7-17); CRP 5.3 mg/dL (<1.0); Calcium 9.7 mg/dL (8.4-10.2); Carbon Dioxide 24 mmol/L (22-30); Chloride 105 mmol/L (98-107); Estimated CRCL calculation 32 ml/min; Estimated Glomerular Filt Rate 21; Glucose 231 mg/dL (65-110); Magnesium 1.7 mg/dL (1.6-2.3); Potassium 4.7 mmol/L (3.4-5.0); Sodium 136 mmol/L (137-145); Total Protein 8.2 g/dL (6.3-8.2)
[2025-07-13 22:12] LABS: Add Urine Microscopic? YES; Appearance Urine Clear (Clear); Glucose Urine UA 3+ mg/dL (Negative); Leukocyte Esterase Ur Negative LEU/UL (Negative); Nitrate Urine Negative (Negative); Non Pathogenic Casts 0-2; Specific Grav Ur 1.022 (1.001-1.035)
[2025-07-13] MEDS: VANCOMYCIN 2,000 MG/NS 500 ML 2,000 MG/500 ML BAG 250 MG IVPB (22:36)
[2025-07-13 23:39] LABS: Hemoglobin A1C 8.2 % (<5.7)
--- NOTE | 2025-07-13 23:52 | PM.IMHP2 ---
H&P: HPI History of Present Illness Date/Time: 07/13/25 23:52 Chief Complaint: Abdominal cellulitis Narrative: 60-year-old female presents to [facility] ER on 07/13/2025 complaining of redness swelling pain and discharge of her right side lower abdominal wall as well as another punctuate spot of purulent discharge in her suprapubic region. She tells me she has hidraadenitis. Past medical history obesity class 3, hyperlipidemia, CKD, GERD, hypertension, seizure disorder on Keppra, insulin-dependent diabetes mellitus, frequent skin infections, chronic respiratory failure requiring 3 L nightly. She has had a left buttock abscess requiring incision and drainage. History of MRSA. She sees Dr. Osullivan general surgery. She has had an abscess of the left breast before. A few days prior she saw her ear doctor and was prescribed cefdinir 300 mg p.o. b.i.d. for bilateral ear infection. 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 Patient presents with intermittent sinus tachycardia, afebrile. WBC 9700, INR 1.1, sodium 136, BUN 49, serum creatinine 2.35 elevated above her baseline. HbA1c 8.2, lactic acid 1.1, CRP 5.3, CT abdomen and pelvis preliminary read rib reports ventral wall cellulitis, incompletely imaged but no evidence of mass/abscess. No acute intra-abdominal abnormality. Review of Systems Review of Systems: All systems reviewed & are unremarkable except as noted in HPI and below (Subjective) [facility] Past Medical History Medical History History of gastroesophageal reflux (GERD) History of hypertension Hyperlipidemia Morbid obesity with BMI of 50.0-59.9, adult Type 2 diabetes mellitus Surgical History Surgical History History of knee surgery History of tubal ligation Social History Social History Smoking packs per day: 1 Smoking cigarettes per day: 20.0 Years smoked: 30 Smoking pack-years: 30.00 Smoking status: Former smoker Tobacco type: cigarettes Second hand tobacco smoke exposure: No Smoking end date: 11/17/17 Alcohol intake: never Substance use: never Substance use type: does not use Lack of Transportation: No Lack of Food: Never True Current Housing: I Have Housing Concerned About Future Housing: No Difficulty Paying Gas/Electric Bills: No Difficulty Paying for Meds: No Currently Unemployed: Decline to Answer Education: Trade/Vocational Certificate Difficulty w/ Childcare or Family Care: No Spiritual care concerns: No Meds Home Medications and Allergies Home Medications ?Medication ?Instructions ?Recorded ?Confirmed ?Type acetaminophen 650 mg 1,300 mg PO Q8H PRN Pain 03/11/24 07/02/24 History tablet,extended release albuterol sulfate 90 mcg/actuation 1 puff inhalation TID PRN 03/11/24 07/02/24 History aerosol inhaler Shortness Of Breath alendronate 70 mg tablet 70 mg PO WEEKLY 03/11/24 07/02/24 History aspirin 81 mg chewable tablet 81 mg PO DAILY 03/11/24 07/02/24 History atorvastatin 40 mg tablet 40 mg PO HS 03/11/24 07/02/24 History cetirizine 10 mg tablet 10 mg PO DAILY PRN allergies 03/11/24 07/02/24 History cholecalciferol (vitamin D3) 25 50 mcg PO DAILY 03/11/24 07/02/24 History mcg (1,000 unit) tablet citalopram 40 mg tablet 40 mg PO DAILY 03/11/24 07/02/24 History dapagliflozin propanediol 10 mg 10 mg PO DAILY 03/11/24 07/02/24 History tablet (Farxiga) docusate sodium 100 mg capsule 100 mg PO BID 03/11/24 07/02/24 History fluticasone propionate 50 2 spray intranasal DAILY 03/11/24 07/02/24 History mcg/actuation nasal spray,suspension gabapentin 400 mg capsule 400 mg PO TID 03/11/24 07/02/24 History levetiracetam 750 mg tablet 750 mg PO BID 03/11/24 07/02/24 History liraglutide 0.6 mg/0.1 mL (18 mg/3 1.8 mg subcut HS 03/11/24 07/02/24 History mL) subcutaneous pen injector (Victoza 3-Kush) melatonin 5 mg tablet 5 mg PO HS 03/11/24 07/02/24 History multivitamin with minerals 1 tablet PO DAILY 03/11/24 07/02/24 History nitroglycerin 0.4 mg sublingual 0.4 mg sublingual Q5-15M PRN Chest 03/11/24 07/02/24 History tablet Pain peg 400-propylene glycol 0.4 %-0.3 2 drp EACH EYE BID 03/11/24 07/02/24 History % eye drops (Systane Ultra) polyethylene glycol 3350 17 17 g PO DAILY 03/11/24 07/02/24 History gram/dose oral powder (Miralax) sodium chloride 0.65 % nasal spray 2 spray intranasal Q2H PRN 03/11/24 07/02/24 History aerosol (Saline Nasal) allergies trazodone 100 mg tablet 100 mg PO HS 03/11/24 07/02/24 History venlafaxine 150 mg 150 mg PO DAILY 03/11/24 07/02/24 History capsule,extended release 24 hr carvedilol 12.5 mg tablet 25 mg PO BID 06/10/24 07/02/24 History valsartan 320 tablet PO 06/10/24 07/02/24 History mg-hydrochlorothiazide 25 mg tablet ascorbate calcium (vitamin C) 500 500 mg PO DAILY 07/01/24 07/02/24 History mg tablet insulin regular hum U-500 conc 500 75 unit subcut ONCE 07/01/24 07/02/24 History unit/mL(3 mL) subcut pen (Humulin R U-500 (Conc) Insulin Kwikpen) isosorbide dinitrate 30 mg tablet 30 mg PO BID 07/01/24 07/02/24 History megestrol 40 mg tablet 80 mg PO BID 07/01/24 07/02/24 History Allergies Allergy/AdvReac Type Severity Reaction Status Date / Time codeine Allergy Severe Itching Verified 07/01/24 11:20 metformin Allergy Severe Diarrhea,Kidney Verified 07/01/24 11:20 disease Anesthetics - Amide Type - Allergy Intermediate Rash Verified 07/01/24 11:20 Select A exenatide (From [employer]) Allergy Mild Rash Verified 07/01/24 11:20 latex Allergy Mild Rash Verified 07/01/24 11:20 Vital Signs Vital Signs - 24 hr 07/13/25 18:49 07/13/25 18:55 07/13/25 18:56 Temperature 98.8 F Pulse Rate 94 Respiratory Rate 20 Blood Pressure 163/92 H 163/92 H Pulse Oximetry 96 95 94 Oxygen Delivery Room Air Oxygen Flow Rate 07/13/25 19:03 07/13/25 19:15 07/13/25 19:18 Temperature Pulse Rate Respiratory Rate Blood Pressure 124/90 Pulse Oximetry 95 96 95 Oxygen Delivery Oxygen Flow Rate 07/13/25 19:33 07/13/25 19:34 07/13/25 19:45 Temperature Pulse Rate Respiratory Rate Blood Pressure 150/76 H Pulse Oximetry 96 95 Oxygen Delivery Oxygen Flow Rate 07/13/25 19:47 07/13/25 20:00 07/13/25 20:01 Temperature Pulse Rate Respiratory Rate Blood Pressure 136/126 H 131/110 H Pulse Oximetry 95 94 94 Oxygen Delivery Oxygen Flow Rate 07/13/25 20:15 07/13/25 20:16 07/13/25 20:30 Temperature Pulse Rate Respiratory Rate Blood Pressure 145/91 H Pulse Oximetry 93 94 94 Oxygen Delivery Oxygen Flow Rate 07/13/25 20:31 07/13/25 20:34 07/13/25 20:46 Temperature Pulse Rate 97 93 Respiratory Rate 21 H 24 H Blood Pressure 158/85 H 158/85 H 156/87 H Pulse Oximetry 96 95 95 Oxygen Delivery Oxygen Flow Rate 07/13/25 20:49 07/13/25 21:01 07/13/25 21:02 Temperature Pulse Rate 86 87 Respiratory Rate 19 19 Blood Pressure 155/98 H Pulse Oximetry 96 90 100 Oxygen Delivery Nasal Cannula Oxygen Flow Rate 2 07/13/25 21:15 07/13/25 21:30 07/13/25 21:45 Temperature Pulse Rate 91 89 90 Respiratory Rate 20 19 23 H Blood Pressure Pulse Oximetry 99 99 Oxygen Delivery Oxygen Flow Rate 07/13/25 21:46 07/13/25 22:00 07/13/25 22:25 Temperature Pulse Rate 89 98 100 Respiratory Rate 17 25 H 29 H Blood Pressure 150/90 H Pulse Oximetry 99 99 Oxygen Delivery Oxygen Flow Rate 07/13/25 22:30 07/13/25 22:38 07/13/25 22:39 Temperature Pulse Rate 95 93 93 Respiratory Rate 18 19 23 H Blood Pressure 150/97 H 150/97 H Pulse Oximetry 98 97 98 Oxygen Delivery Oxygen Flow Rate 07/13/25 22:45 07/13/25 22:47 07/13/25 23:00 Temperature Pulse Rate 106 H 103 H 92 Respiratory Rate 24 H 21 H 22 H Blood Pressure 124/81 Pulse Oximetry 98 96 Oxygen Delivery Oxygen Flow Rate 07/13/25 23:15 Temperature Pulse Rate 91 Respiratory Rate 22 H Blood Pressure Pulse Oximetry 97 Oxygen Delivery Oxygen Flow Rate Exam Const: General: comfortable and no acute distress Other: A&O x4, obese HENMT: Mouth: Yes moist mucous membranes Eyes: Pupils: Equal, round and reactive pupils present Neck: Neck: supple Resp: Effort & Inspection: normal respiratory effort Auscultation: clear to auscultation bilaterally Cardio: Rate: regular rate Rhythm: regular rhythm GI: Inspection: non-distended GI Palp: Yes Soft to palpation Auscultation: normal bowel sounds Skin: Other: Erythema, tenderness to palpation, induration of the right abdominal pannus. No fluctuant mass identified, there is some creamy drainage coming out from 1 of the openings of hair follicles. Does not extend into the growing. There is 1 small punctuate opening in the suprapubic soft tissue with creamy red drainage. No fluctuance or mass identified. Neuro: Motor exam (neuro): 5/5 motor strength present throughout Extrem: General: no edema Results Labs Labs: Short CBC 07/13/25 Range/Units 20:29 WBC 9.7 (4.5-10.0) K/mm3 Hgb 11.6 L (12.0-15.0) g/dL Hct 34.9 L (37.0-47.0) % Plt Count 208 (150-375) k/mm3 BMP 07/13/25 20:29 Sodium 136 L Potassium 4.7 Chloride 105 Carbon Dioxide 24 BUN 49 H D Creatinine 2.35 H Glucose 231 H Calcium 9.7 Liver Function 07/13/25 Range/Units 20:29 Total Bilirubin 0.3 (0.2-1.3) mg/dL AST 24 (14-36) U/L ALT 26 (6-35) U/L Alkaline Phosphatase 91 (38-126) U/L Albumin 4.2 (3.5-5.1) g/dL Urine 07/13/25 Range/Units 22:00 Urine Color Yellow (Yellow) Urine Appearance Clear (Clear) Urine pH 5.5 (5.0-9.0) Ur Specific Deal 1.022 (1.001-1.035) Urine Protein 3+ H (Negative) mg/dL Urine Glucose (UA) 3+ H (Negative) mg/dL Assessment and Plan Assessment and plan (1) Type 2 diabetes mellitus: Code(s): E11.9 - Type 2 diabetes mellitus without complications Status: Chronic (2) STEPHEN (acute kidney injury): Code(s): N17.9 - Acute kidney failure, unspecified Status: Acute (3) CKD (chronic kidney disease): Code(s): N18.9 - Chronic kidney disease, unspecified Status: Acute (4) Cellulitis: Code(s): L03.90 - Cellulitis, unspecified Status: Acute Plan Patient presents with abdominal wall cellulitis. No mass/fluid/abscess collection identified however there is some purulent drainage. She does not appear septic otherwise aside from STEPHEN on CKD which could be unrelated. Will consult General surgery. She is a patient of Dr. Osullivan. Fluids, trend renal function. Start vancomycin for presumed MRSA cellulitis with purulence. Blood cultures obtained. Obtained purulent fluid culture. Continue cefdinir 300 mg p.o. b.i.d. for previously diagnosed bilateral ear infections, the patient reports her ear pain has improved greatly. Continue nightly 3 L nasal cannula as prescribed by her PCP but was told she did need a sleep study. Patient has never had a sleep study, encouraged her to have this performed. Accu-Cheks a.c. HS. Hold WELL TESTER insulin for now. Insulin sliding scale with hypoglycemia protocol. Hold WELL TESTER antihypertensives. Restart as needed. Resume WELL TESTER Keppra. ----- Patient wishes to be full code. SCDs. Fluids. General surgery consult. Prior Studies I have reviewed the following patient records and this information was taken into consideration when formulating the assessment and plan.: previous labs, previous ER visits, previous hospitalizations and previous clinic visits Time Spent with Patient Time with patient: less than 45 minutes Hospitalist MIPS Advance Care Plan I have confirmed that the patient's Advanced Care Plan is present, code status is documented, or surrogate decision maker is listed in patient medical record.: Yes Medication Reconciliation I have utilized all available resources to obtain, update and review the patients current medications (includes all prescriptions, OTC, herbals, cannabis, and nutritional supplements).: Yes
--- NOTE | 2025-07-13 23:52 | WPCEDHO ---
ED Hand Off Checklist All vitals saved: yes IV Site documented: yes All med administrations documented: yes Triage Note Triage Note Per EMS, Pt from [facility] 07/13/25 18:49 [facility] with c/o wound to abdomen since . Hx diabetes. States has chronic pain to abdomen, shoulders, and back Allergies codeine Allergy (Severe, Verified 07/01/24 11:20) Itching metformin Allergy (Severe, Verified 07/01/24 11:20) Diarrhea,Kidney disease Kidney disease Anesthetics - Amide Type - Select A Allergy (Intermediate, Verified 07/01/24 11:20) Rash exenatide (From [employer] Influence) Allergy (Mild, Verified 07/01/24 11:20) Rash latex Allergy (Mild, Verified 07/01/24 11:20) Rash Active Medications including assessments/comments Sodium Chloride (Normal Saline Iv) 1,000 mls @ 150 mls/hr IV CONT .[id number] STA Stop: 07/14/25 02:07 Last Admin: 07/13/25 20:36 Dose: 150 mls/hr Documented By: JEYSON Infusion/Titration Document 07/13/25 20:36 JEYSON (Rec: 07/13/25 20:36 JEYSON [id number]) Intake IV Site Peripheral Access Right Forearm Container Volume 1,000 Waste Amount 0 Dosing Infusion Rate 150 Cumulative Dose Not Applicable Increase/Decrease Started Elapsed Time Elapsed Time ( 0m minutes) Administered/Completed Medications Discontinued Medications Acetaminophen (Acetaminophen 500 Mg Tablet) 1,000 mg PO ONCE STA Stop: 07/13/25 19:29 Last Admin: 07/13/25 20:35 Dose: 1,000 mg Documented By: JEYSON Vancomycin HCl (Vancomycin 2,000 Mg/Ns 500 Ml) 2,000 mg in 500 mls @ 250 mls/hr IVPB ONCE ONE Stop: 07/13/25 23:23 Last Admin: 07/13/25 22:36 Dose: 250 mls/hr Documented By: BRAD Notes 07/13/25 20:50 Nurse Note by Hue Estrada Report to Annia VALENCIA who assumed care of patient Initialized on 07/13/25 20:50 - END OF NOTE Interventions/Assessments IV / Saline Lock, Insert Start: 07/13/25 20:33 Freq: Status: Active Protocol: Document 07/13/25 22:40 BRAD (Rec: 07/13/25 22:40 [facility] [id number]) IV Assessment Peripheral Access Left Forearm IV Catheter Access Initiated IV Insertion Date 07/13/25 IV Insertion Time 22:40 Catheter Gauge 20 IV Site Assessment WNL IV Care and WNL Maintenance Peripheral Access Right Forearm IV Catheter Access Discontinued Access Last Vital Signs Temperature 98.8 F 07/13/25 18:49 Pulse Rate 91 07/13/25 23:15 Respiratory Rate 22 H 07/13/25 23:15 Pulse Oximetry 97 07/13/25 23:15 Blood Pressure 124/81 07/13/25 22:47 Blood Pressure Mean 94 07/13/25 22:47 Blood Pressure Position Sitting 07/13/25 18:49 Oxygen Delivery Nasal Cannula 07/13/25 20:49 Oxygen Flow Rate 2 07/13/25 20:49 Weight 153.6 kg 07/13/25 18:49 Last Result - Abnormals Only RBC 3.71 M/mm3 (4.2-5.4) L 07/13/25 20: Hgb 11.6 g/dL (12.0-15.0) L 07/13/25 20:29 Hct 34.9 % (37.0-47.0) L 07/13/25 20: Neut % (Auto) 73.6 % (45.5-73.1) H 07/13/25 20: Lymph % (Auto) 13.8 % (18.3-44.2) L 07/13/25 20:29 Eos % (Auto) 4.9 % (0-4.4) H 07/13/25 20: Eos # (Auto) 0.5 K/mm3 (0-0.3) H 07/13/25 20:29 Abs Immat Gran (auto) 0.05 K/mm3 (0.00-0.031) H 07/13/25 20: Absolute Neuts (auto) 7.1 K/mm3 (1.3-6.7) H 07/13/25 20: Sodium 136 mmol/L (137-145) L 07/13/25 20:29 BUN 49 mg/dL (7-17) H D 07/13/25 20: Creatinine 2.35 mg/dL (0.7-1.0) H 07/13/25 20:29 Estimated GFR 21 (59-) L 07/13/25 20:29 Glucose 231 mg/dL (65-110) H 07/13/25 20:29 Hemoglobin A1c 8.2 % (<5.7) H 07/13/25 20:29 C-Reactive Protein 5.3 mg/dL (<1.0) H 07/13/25 20:29 Urine Protein 3+ mg/dL (Negative) H 07/13/25 22:00 Urine Glucose (UA) 3+ mg/dL (Negative) H 07/13/25 22:00 Urine RBC 3-5 /hpf (0-2) H 07/13/25 22:00 Most Recent Suicide Severity Rating Suicide Severity Rating NO RISK INDICATED 07/13/25 18:49
[2025-07-14] VITALS (13 sets, daily range): BP systolic 124–147; BP diastolic 74–83; PULSE 65–92; RESP 14–22; TEMP 36.2–36.4; O2SAT 94–99
--- NOTE | 2025-07-14 00:58 | ADMGEN ---
This patient, Aletha Phillips, was admitted to 2 Medical Room 254-01. Patient/family oriented to hospital policies and general routines including ID bracelet, bed and alarms, visiting hours, pain management, procedures, bathroom and other care routines, personal items, smoking policy, room service/diet, and visiting hours. Information on how to activate the Rapid Response Team has been discussed. Patient/Family are encouraged to report perceived risks to care and to ask questions if they do not understand what they are told or what they should do.
[2025-07-14 05:20] LABS: Hematocrit 35.9 % (37.0-47.0); Hemoglobin 11.6 g/dL (12.0-15.0); Immature Granulocyte Percent A 0.7 % (0-0.5); Lymphocytes Absolute Auto 1.35 K/mm3 (0.9-3.2); Mean Corpuscular HGB Conc 32.3 g/dl (32-36); Mean Corpuscular Hemoglobin 31.0 pg (26-34); Mean Corpuscular Volume 96.0 fl (80-100); Nucleated Red Blood Cells Absolute Auto 0.000 K/mm3 (0.0-0.012); Nucleated Red Blood Cells Perc 0.0 % (0.0-0.2); Platelet Count Result 185 k/mm3 (150-375); Red Blood Count 3.74 M/mm3 (4.2-5.4); White Blood Count 9.5 K/mm3 (4.5-10.0)
[2025-07-14 05:33] LABS: Influenza A QL RT-PCR Negative (Negative); Influenza B QL RT-PCR Negative (Negative); RSV RNA, RT-PCR Negative (Negative); SARS-CoV-2 RNA PCR Negative (Negative)
[2025-07-14 05:49] LABS: Anion Gap 7 mmol/L (4-12); Blood Urea Nitrogen 44 mg/dL (7-17); Calcium 9.2 mg/dL (8.4-10.2); Carbon Dioxide 23 mmol/L (22-30); Chloride 109 mmol/L (98-107); Estimated CRCL calculation 39 ml/min; Estimated Glomerular Filt Rate 24; Glucose 170 mg/dL (65-110); Magnesium 1.6 mg/dL (1.6-2.3); Potassium 4.5 mmol/L (3.4-5.0); Sodium 139 mmol/L (137-145)
--- NOTE | 2025-07-14 09:56 | P.PNIM_ITS ---
Assessment and Plan Assessment and Plan (1) Type 2 diabetes mellitus: Code(s): E11.9 - Type 2 diabetes mellitus without complications Status: Chronic (2) STEPHEN (acute kidney injury): Code(s): N17.9 - Acute kidney failure, unspecified Status: Acute (3) CKD (chronic kidney disease): Code(s): N18.9 - Chronic kidney disease, unspecified Status: Acute (4) Cellulitis: Code(s): L03.90 - Cellulitis, unspecified Status: Acute Plan 60-year-old female presents to [facility] ER on 07/13/2025 complaining of redness swelling pain and discharge of her right side lower abdominal wall as well as another punctuate spot of purulent discharge in her suprapubic region. She tells me she has hidraadenitis. Past medical history obesity class 3, hyperlipidemia, CKD, GERD, hypertension, seizure disorder on Keppra, insulin- dependent diabetes mellitus, frequent skin infections, chronic respiratory failure requiring 3 L nightly. She has had a left buttock abscess requiring incision and drainage. History of MRSA. She sees Dr. Osullivan general surgery. She has had an abscess of the left breast before. A few days prior she saw her ear doctor and was prescribed cefdinir 300 mg p.o. b.i.d. for bilateral ear infection. 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 Patient presents with intermittent sinus tachycardia, afebrile. WBC 9700, INR 1.1, sodium 136, BUN 49, serum creatinine 2.35 elevated above her baseline. HbA1c 8.2, lactic acid 1.1, CRP 5.3, CT abdomen and pelvis preliminary read rib reports ventral wall cellulitis, incompletely imaged but no evidence of mass/abscess. No acute intra-abdominal abnormality. Patient presents with abdominal wall cellulitis. No mass/fluid/abscess collection identified however there is some purulent drainage. WBC count normal. No signs of sepsis on presentation. Consulted General surgery. History of hidradenitis suppurativa. Continue IV fluid and vancomycin. Fluid culture pending STEPHEN CKD stage 3 baseline creatinine around 1.4. Admission creatinine of 2.3. Continue to improve with IV fluid. Recently treated bilateral ear infections on cefdinir 300 mg b.i.d.. Nocturnal hypoxia on nasal cannula oxygen 3 L at night she did need a sleep study however has never had 1 before. Type 2 diabetes on insulin continue to monitor Accu-Cheks. Takes U 500 insulin at home. Will switch to basal bolus insulin regimen per protocol here Hypertension home medication hold Lasix valsartan and hydrochlorothiazide Seizure disorder on Keppra GERD Hyperlipidemia Obesity class 3 Frequent skin infections Code status full code DVT prophylaxis SCDs. Subjective Date/time seen: 07/14/25 09:56 Interval history: No overnight events. Swelling in the abdomen feels a little smaller. Remains afebrile. Review of Systems Review of Systems: All systems reviewed & are unremarkable except as noted in HPI and below Exam Narrative: CONST: No acute distress. Well nourished. Obese. HENMT: Head is normocephalic and atraumatic. EYES: No scleral icterus. No conjunctival injection or pallor. PERRL. RESP: Able to speak in full sentences. Normal respiratory effort. CTAB. CARDIO: Regular rate. Regular rhythm. 2+ DP and radial pulses bilaterally. GI: Nondistended. Soft. Right lower abdomen/pannus is diffuse erythema, warmth, tenderness to palpation, no palpable fluctuance, mild induration is present, no crepitus. : No CVA tenderness to palpation. SKIN: No rashes or lesions noted on exposed skin. NEURO: Oriented x3. Moves all extremities. EXTREM/MSK/BACK: No pedal edema. PSYCH: Normal affect. Objective Data Vital Signs Vital Signs: Vital Signs - 24 hr 07/13/25 18:49 07/13/25 18:55 07/13/25 18:56 Temperature 98.8 F Pulse Rate 94 Respiratory Rate 20 Blood Pressure 163/92 H 163/92 H Pulse Oximetry 96 95 94 Oxygen Delivery Room Air Oxygen Flow Rate 07/13/25 19:03 07/13/25 19:15 07/13/25 19:18 Temperature Pulse Rate Respiratory Rate Blood Pressure 124/90 Pulse Oximetry 95 96 95 Oxygen Delivery Oxygen Flow Rate 07/13/25 19:33 07/13/25 19:34 07/13/25 19:45 Temperature Pulse Rate Respiratory Rate Blood Pressure 150/76 H Pulse Oximetry 96 95 Oxygen Delivery Oxygen Flow Rate 07/13/25 19:47 07/13/25 20:00 07/13/25 20:01 Temperature Pulse Rate Respiratory Rate Blood Pressure 136/126 H 131/110 H Pulse Oximetry 95 94 94 Oxygen Delivery Oxygen Flow Rate 07/13/25 20:15 07/13/25 20:16 07/13/25 20:30 Temperature Pulse Rate Respiratory Rate Blood Pressure 145/91 H Pulse Oximetry 93 94 94 Oxygen Delivery Oxygen Flow Rate 07/13/25 20:31 07/13/25 20:34 07/13/25 20:46 Temperature Pulse Rate 97 93 Respiratory Rate 21 H 24 H Blood Pressure 158/85 H 158/85 H 156/87 H Pulse Oximetry 96 95 95 Oxygen Delivery Oxygen Flow Rate 07/13/25 20:49 07/13/25 21:01 07/13/25 21:02 Temperature Pulse Rate 86 87 Respiratory Rate 19 19 Blood Pressure 155/98 H Pulse Oximetry 96 90 100 Oxygen Delivery Nasal Cannula Oxygen Flow Rate 2 07/13/25 21:15 07/13/25 21:30 07/13/25 21:45 Temperature Pulse Rate 91 89 90 Respiratory Rate 20 19 23 H Blood Pressure Pulse Oximetry 99 99 Oxygen Delivery Oxygen Flow Rate 07/13/25 21:46 07/13/25 22:00 07/13/25 22:25 Temperature Pulse Rate 89 98 100 Respiratory Rate 17 25 H 29 H Blood Pressure 150/90 H Pulse Oximetry 99 99 Oxygen Delivery Oxygen Flow Rate 07/13/25 22:30 07/13/25 22:38 07/13/25 22:39 Temperature Pulse Rate 95 93 93 Respiratory Rate 18 19 23 H Blood Pressure 150/97 H 150/97 H Pulse Oximetry 98 97 98 Oxygen Delivery Oxygen Flow Rate 07/13/25 22:45 07/13/25 22:47 07/13/25 23:00 Temperature Pulse Rate 106 H 103 H 92 Respiratory Rate 24 H 21 H 22 H Blood Pressure 124/81 Pulse Oximetry 98 96 Oxygen Delivery Oxygen Flow Rate 07/13/25 23:15 07/14/25 01:14 07/14/25 01:29 Temperature 97.1 F L Pulse Rate 91 91 88 Respiratory Rate 22 H 22 H 20 Blood Pressure 124/81 141/80 H Pulse Oximetry 97 97 98 Oxygen Delivery Oxygen Flow Rate 07/14/25 02:04 07/14/25 04:00 07/14/25 05:34 Temperature 97.1 F L Pulse Rate 85 92 86 Respiratory Rate 20 Blood Pressure 143/77 H Pulse Oximetry 99 Oxygen Delivery Oxygen Flow Rate 07/14/25 08:00 Temperature Pulse Rate Respiratory Rate Blood Pressure Pulse Oximetry 94 Oxygen Delivery Nasal Cannula Oxygen Flow Rate 2 Intake/Output Intake/Output: Intake & Output 07/11/25 07/12/25 07/13/25 07/14/25 23:59 23:59 23:59 23:59 Intake Total 860 Balance 860 Meds/Results Medications: Active Medications Generic Name Dose Route Start Last Admin Trade Name Freq PRN Reason Stop Dose Admin Dextrose 12.5 gm 07/14/25 00:09 Dextrose 50% 25 Gm/50 Ml Syringe IV PUSH PRN PRN Hypoglycemia Protocol Glucose 15 gm 07/14/25 00:09 Glucose Oral Gel 15 Gm Of Glucse In 37.5 Gm Tube PO PRN PRN Hypoglycemia Protocol Dextrose 1,000 mls @ 100 mls/hr 07/14/25 00:09 Dextrose 5% 1,000 Ml IVPB PRN PRN Hypoglycemia Protocol Insulin Aspart 2 - 5 units 07/14/25 08:00 07/14/25 07:54 Insulin Aspart (*Bkc) 100 Units/Ml SUB-Q Not Given TIDWM COUNTS INCLUDE 234 BEDS AT [facility] Protocol Insulin Aspart 1 - 2 units 07/14/25 21:00 Insulin Aspart (*Bkc) 100 Units/Ml SUB-Q HS LYLA Protocol Vancomycin HCl 1 each 07/13/25 21:24 Vancomycin For Acute Kidney Injury IVPB PRN PRN Vancomycin Protocol Radiology Results: ITS Impressions Abdomen/Pelvis CT 07/14/25 08:19 IMPRESSION: 1. Directed exam demonstrating moderately extensive infiltrative changes in the right anterolateral subcutaneous soft tissues consistent with cellulitis or acute inflammatory/infectious process. This area is incompletely visualized as portions are excluded from the [id number]. 2. Other findings as above. NOTE: Preliminary radiology report provided by [facility] radiologist. Labs Labs: Laboratory Results - last 24 hr 07/13/25 07/13/25 07/13/25 20:29 22:00 23:24 WBC 9.7 RBC 3.71 L Hgb 11.6 L Hct 34.9 L MCV 94.1 MCH 31.3 MCHC 33.2 RDW 12.8 Plt Count 208 MPV 9.4 Immature Gran % (Auto) 0.5 Neut % (Auto) 73.6 H Lymph % (Auto) 13.8 L [place] % (Auto) 6.6 Eos % (Auto) 4.9 H Baso % (Auto) 0.6 Lymph # (Auto) 1.34 [place] # (Auto) 0.6 Eos # (Auto) 0.5 H Baso # (Auto) 0.1 Abs Immat Gran (auto) 0.05 H Absolute Neuts (auto) 7.1 H Absolute Nucleated RBC 0.000 Nucleated RBC % 0.0 PT 14.1 INR 1.1 APTT 30.7 Sodium 136 L Potassium 4.7 Chloride 105 Carbon Dioxide 24 Anion Gap 7 BUN 49 H D Creatinine 2.35 H Estim Creat Clear Calc 32 Estimated GFR 21 L Glucose 231 H POC Capillary Glucose Hemoglobin A1c 8.2 H Lactic Acid 1.1 Calcium 9.7 Magnesium 1.7 Total Bilirubin 0.3 AST 24 ALT 26 Alkaline Phosphatase 91 C-Reactive Protein 5.3 H Total Protein 8.2 Albumin 4.2 Urine Color Yellow Urine Appearance Clear Urine pH 5.5 Ur Specific [place] 1.022 Urine Protein 3+ H Urine Glucose (UA) 3+ H Urine Ketones Negative Ur Blood (Man) Negative Urine Nitrate Negative Urine Bilirubin Negative Urine Urobilinogen 0.2 Leukocyte Esterase Rfl Negative Urine RBC 3-5 H Urine WBC 0-5 Ur Squamous Epith Cells Occasional Urine Bacteria Rare Urine Casts 0-2 Influenza A (RT-PCR) Negative Influenza B (RT-PCR) Negative RSV (RT-PCR) Negative SARS-CoV-2 RNA (RT-PCR) Negative 07/14/25 07/14/25 05:04 07:35 WBC 9.5 RBC 3.74 L Hgb 11.6 L Hct 35.9 L MCV 96.0 MCH 31.0 MCHC 32.3 RDW 12.7 Plt Count 185 MPV 9.5 Immature Gran % (Auto) 0.7 H Neut % (Auto) 72.9 Lymph % (Auto) 14.2 L [place] % (Auto) 7.3 Eos % (Auto) 4.4 Baso % (Auto) 0.5 Lymph # (Auto) 1.35 [place] # (Auto) 0.7 H Eos # (Auto) 0.4 H Baso # (Auto) 0.1 Abs Immat Gran (auto) 0.07 H Absolute Neuts (auto) 6.9 H Absolute Nucleated RBC 0.000 Nucleated RBC % 0.0 PT INR APTT Sodium 139 Potassium 4.5 Chloride 109 H Carbon Dioxide 23 Anion Gap 7 BUN 44 H Creatinine 2.08 H Estim Creat Clear Calc 39 Estimated GFR 24 L Glucose 170 H POC Capillary Glucose 221 H Hemoglobin A1c Lactic Acid Calcium 9.2 Magnesium 1.6 Total Bilirubin AST ALT Alkaline Phosphatase C-Reactive Protein Total Protein Albumin Urine Color Urine Appearance Urine pH Ur Specific [place] Urine Protein Urine Glucose (UA) Urine Ketones Ur Blood (Man) Urine Nitrate Urine Bilirubin Urine Urobilinogen Leukocyte Esterase Rfl Urine RBC Urine WBC Ur Squamous Epith Cells Urine Bacteria Urine Casts Influenza A (RT-PCR) Influenza B (RT-PCR) RSV (RT-PCR) SARS-CoV-2 RNA (RT-PCR)
--- NOTE | 2025-07-14 10:55 | PM.CNGS ---
Assessment and Plan Assessment and plan (1) Abdominal wall abscess: Code(s): L02.211 - Cutaneous abscess of abdominal wall Status: Acute Assessment and Plan: Clinical findings of a right mid to upper abdominal wall abscess and cellulitis of the soft tissues. The area of concern is not fully visualized on CT due to her body habitus, but she does have purulent drainage and induration with an area of fluctuance on exam. Discussed with the patient that this is likely an abscess and we would recommend proceeding with incision and drainage of right abdominal wall abscess at the bedside with local anesthesia. Description of the procedure, risks, benefits, alternatives, and expected wound care were discussed. She agrees to proceed. Continue IV vancomycin for now. Will plan to get a culture during I&D. She has an allergy listed to amide type anesthetics, with the reaction being a rash. When questions, she reports this was many years ago and she has tolerated local anesthesia when used during her previous I&D without issues. (2) Type 2 diabetes mellitus: Code(s): E11.9 - Type 2 diabetes mellitus without complications Status: Chronic Assessment and Plan: Discussed the role this plays in skin and soft tissue infection. Her hgb A1C is 8.2, which reportedly is better than her last A1C. Discussed trying to improve glycemic control. Management per Hospitalist. (3) Morbid obesity with BMI of 50.0-59.9, adult: Code(s): E66.01 - Morbid (severe) obesity due to excess calories; Z68.43 - Body mass index [BMI] 50.0-59.9, adult Status: Chronic (4) Hypertension: Code(s): I10 - Essential (primary) hypertension Status: Acute (5) History of MRSA infection: Code(s): Z86.14 - Personal history of Methicillin resistant Staphylococcus aureus infection Status: Acute Assessment and Plan: Will get another culture during the I&D. She may need Hibiclens and mupirocin again if growing MRSA. Plan I have discussed the patient's case, recommendations, and treatment plan with Dr. Palacios. History of Present Illness Consult details Consult date: 07/14/25 Reason for consult: other (Abdominal pannus cellulitis with purulent discharge) Requesting physician: Gabi eGrman MD Narrative: This is a 60-year-old morbidly obese female with PMH of insulin-dependent type 2 diabetes mellitus, HS, INGE with 2 liters O2 at night and PRN, hypertension, hyperlipidemia, and history MRSA, who we have been asked to see in surgical consultation for abdominal pannus cellulitis with purulent discharge. She is known to our service from previous abscesses. She had a right breast abscess in March 2024 and underwent I&D in the OR. She healed from this and eventually developed a buttock abscess in June 2024 and was evaluated by Dr. Osullivan in our office as an outpatient. She had an I&D and cultures grew MRSA. She was treated with Hibiclens washes and mupirocin in nares. This eventually healed as well. She reports a history of hidradenitis suppurativa, but is not taking any medication for this at present. Three days ago, she noticed tenderness to her right mid abdomen. The following day, she noticed redness to her right mid abdomen. She also had an ENT appointment and was started on cefdinir for an ear infection. She told the physician at the residential about her abdominal wall tenderness/redness. They said to watch this area since she was already on antibiotics. She started to notice fatigue, but denies any fever or chills. Yesterday, her redness had progressed and she noticed swelling, which prompted them to send her to the ER for evaluation. Labs showed a normal WBC count. Glucose in the 200's and her hgb A1C is 8.2. CT scan of the abdomen and pelvis showed changes of the soft tissue of the right anterolateral subcutaneous tissue c/w cellulitis or acute inflammatory/infectious process. This area of concern is not completely visualized as portions are excluded from the [id number]. No obvious fluid collection seen on the visible portion of the CT. She was admitted and started on IV Vancomycin. She is now seen on the medical floor. Blood cultures pending. Wound culture obtained from a small area of drainage near her induration, which is pending. Review of Systems Review of Systems: All systems reviewed & are unremarkable except as noted in HPI and below PMFSH Past Medical History Medical History Type 2 diabetes mellitus Morbid obesity with BMI of 50.0-59.9, adult Hyperlipidemia History of gastroesophageal reflux (GERD) History of hypertension Surgical History Surgical History History of incision and drainage History of tubal ligation History of knee surgery Family History Family History Mother Acute myocardial infarction Cerebrovascular accident Congestive heart failure Diabetes mellitus Hypertension Sibling Diabetes mellitus Father Epilepsy Social History Social History Smoking packs per day: 1 Smoking cigarettes per day: 20.0 Years smoked: 30 Smoking pack-years: 30.00 Smoking status: Former smoker Second hand tobacco smoke exposure: No Alcohol intake: never Substance use: never Substance use type: does not use Lack of Transportation: No Lack of Food: Never True Current Housing: I Have Housing Concerned About Future Housing: No Difficulty Paying Gas/Electric Bills: No Difficulty Paying for Meds: No Currently Unemployed: No Education: High School Diploma/GED Difficulty w/ Childcare or Family Care: No Spiritual care concerns: No Meds Home Medications and Allergies Home Medications ?Medication ?Instructions ?Recorded ?Confirmed ?Type acetaminophen 650 mg 1,300 mg PO Q8H PRN Pain 03/11/24 07/14/25 History tablet,extended release albuterol sulfate 90 mcg/actuation 1 puff inhalation TID PRN 03/11/24 07/14/25 History aerosol inhaler Shortness Of Breath alendronate 70 mg tablet 70 mg PO WEEKLY 03/11/24 07/14/25 History aspirin 81 mg chewable tablet 81 mg PO DAILY 03/11/24 07/14/25 History atorvastatin 40 mg tablet 40 mg PO HS 03/11/24 07/14/25 History cetirizine 10 mg tablet 10 mg PO DAILY PRN allergies 03/11/24 07/14/25 History cholecalciferol (vitamin D3) 25 50 mcg PO DAILY 03/11/24 07/14/25 History mcg (1,000 unit) tablet citalopram 40 mg tablet 40 mg PO DAILY 03/11/24 07/14/25 History dapagliflozin propanediol 10 mg 10 mg PO DAILY 03/11/24 07/14/25 History tablet (Farxiga) docusate sodium 100 mg capsule 100 mg PO BID 03/11/24 07/14/25 History fluticasone propionate 50 2 spray intranasal DAILY 03/11/24 07/14/25 History mcg/actuation nasal spray,suspension gabapentin 400 mg capsule 400 mg PO TID 03/11/24 07/14/25 History levetiracetam 750 mg tablet 750 mg PO BID 03/11/24 07/14/25 History liraglutide 0.6 mg/0.1 mL (18 mg/3 1.8 mg subcut HS 03/11/24 07/14/25 History mL) subcutaneous pen injector (Victoza 3-Kush) melatonin 5 mg tablet 5 mg PO HS 03/11/24 07/14/25 History nitroglycerin 0.4 mg sublingual 0.4 mg sublingual Q5-15M PRN Chest 03/11/24 07/14/25 History tablet Pain polyethylene glycol 3350 17 17 g PO DAILY 03/11/24 07/14/25 History gram/dose oral powder (Miralax) sodium chloride 0.65 % nasal spray 2 spray intranasal Q2H PRN 03/11/24 07/14/25 History aerosol (Saline Nasal) allergies trazodone 100 mg tablet 150 mg PO HS 03/11/24 07/14/25 History venlafaxine 150 mg 150 mg PO DAILY 03/11/24 07/14/25 History capsule,extended release 24 hr carvedilol 12.5 mg tablet 25 mg PO BID 06/10/24 07/14/25 History valsartan 320 1 tablet PO DAILY 06/10/24 07/14/25 History mg-hydrochlorothiazide 25 mg tablet insulin regular hum U-500 conc 500 100 unit subcut QPM 07/01/24 07/14/25 History unit/mL(3 mL) subcut pen (Humulin R U-500 (Conc) Insulin Kwikpen) isosorbide dinitrate 30 mg tablet 30 mg PO BID 07/01/24 07/14/25 History megestrol 40 mg tablet 80 mg PO BID 07/01/24 07/14/25 History aluminum-mag hydroxide-simethicone 5 ml PO Q6H PRN indigestion 07/14/25 07/14/25 History 200 mg-200 mg-20 mg/5 mL oral susp (Advanced Antacid-Antigas) bisacodyl 5 mg tablet 5 mg PO DAILY PRN constipation 07/14/25 07/14/25 History cefdinir 300 mg capsule 300 mg PO Q12H 07/14/25 07/14/25 History furosemide 40 mg tablet 40 mg PO DAILY 07/14/25 07/14/25 History insulin regular hum U-500 conc 500 150 unit subcut QNOON 07/14/25 07/14/25 History unit/mL(3 mL) subcut pen (Humulin R U-500 (Conc) Insulin Kwikpen) menthol 1 applic topical TID PRN pain 07/14/25 07/14/25 History naproxen 250 mg tablet See Rx Instructions PO DAILY PRN 07/14/25 07/14/25 History pain nifedipine 60 mg tablet,extended 60 mg PO DAILY 07/14/25 07/14/25 History release polyvinyl alcohol-povidone (PF) 2 drp EACH EYE BID PRN dry eye(s) 07/14/25 07/14/25 History 1.4 %-0.6 % eye drops in a dropperette (Refresh Classic (PF)) potassium chloride 10 mEq 10 meq PO DAILY 07/14/25 07/14/25 History capsule,extended release Allergies Allergy/AdvReac Type Severity Reaction Status Date / Time codeine Allergy Severe Itching Verified 07/14/25 00:52 metformin Allergy Severe Diarrhea,Kidney Verified 07/14/25 00:52 disease Anesthetics - Amide Type - Allergy Intermediate Rash Verified 07/14/25 00:52 Select A exenatide (From Bydureon) Allergy Mild Rash Verified 07/14/25 00:52 latex Allergy Mild Rash Verified 07/14/25 00:52 Vital Signs Vital Signs - 24 hr 07/13/25 18:49 07/13/25 18:55 07/13/25 18:56 Temperature 98.8 F Pulse Rate 94 Respiratory Rate 20 Blood Pressure 163/92 H 163/92 H Pulse Oximetry 96 95 94 Oxygen Delivery Room Air Oxygen Flow Rate 07/13/25 19:03 07/13/25 19:15 07/13/25 19:18 Temperature Pulse Rate Respiratory Rate Blood Pressure 124/90 Pulse Oximetry 95 96 95 Oxygen Delivery Oxygen Flow Rate 07/13/25 19:33 07/13/25 19:34 07/13/25 19:45 Temperature Pulse Rate Respiratory Rate Blood Pressure 150/76 H Pulse Oximetry 96 95 Oxygen Delivery Oxygen Flow Rate 07/13/25 19:47 07/13/25 20:00 07/13/25 20:01 Temperature Pulse Rate Respiratory Rate Blood Pressure 136/126 H 131/110 H Pulse Oximetry 95 94 94 Oxygen Delivery Oxygen Flow Rate 07/13/25 20:15 07/13/25 20:16 07/13/25 20:30 Temperature Pulse Rate Respiratory Rate Blood Pressure 145/91 H Pulse Oximetry 93 94 94 Oxygen Delivery Oxygen Flow Rate 07/13/25 20:31 07/13/25 20:34 07/13/25 20:46 Temperature Pulse Rate 97 93 Respiratory Rate 21 H 24 H Blood Pressure 158/85 H 158/85 H 156/87 H Pulse Oximetry 96 95 95 Oxygen Delivery Oxygen Flow Rate 07/13/25 20:49 07/13/25 21:01 07/13/25 21:02 Temperature Pulse Rate 86 87 Respiratory Rate 19 19 Blood Pressure 155/98 H Pulse Oximetry 96 90 100 Oxygen Delivery Nasal Cannula Oxygen Flow Rate 2 07/13/25 21:15 07/13/25 21:30 07/13/25 21:45 Temperature Pulse Rate 91 89 90 Respiratory Rate 20 19 23 H Blood Pressure Pulse Oximetry 99 99 Oxygen Delivery Oxygen Flow Rate 07/13/25 21:46 07/13/25 22:00 07/13/25 22:25 Temperature Pulse Rate 89 98 100 Respiratory Rate 17 25 H 29 H Blood Pressure 150/90 H Pulse Oximetry 99 99 Oxygen Delivery Oxygen Flow Rate 07/13/25 22:30 07/13/25 22:38 07/13/25 22:39 Temperature Pulse Rate 95 93 93 Respiratory Rate 18 19 23 H Blood Pressure 150/97 H 150/97 H Pulse Oximetry 98 97 98 Oxygen Delivery Oxygen Flow Rate 07/13/25 22:45 07/13/25 22:47 07/13/25 23:00 Temperature Pulse Rate 106 H 103 H 92 Respiratory Rate 24 H 21 H 22 H Blood Pressure 124/81 Pulse Oximetry 98 96 Oxygen Delivery Oxygen Flow Rate 07/13/25 23:15 07/14/25 01:14 07/14/25 01:29 Temperature 97.1 F L Pulse Rate 91 91 88 Respiratory Rate 22 H 22 H 20 Blood Pressure 124/81 141/80 H Pulse Oximetry 97 97 98 Oxygen Delivery Oxygen Flow Rate 07/14/25 02:04 07/14/25 04:00 07/14/25 05:34 Temperature 97.1 F L Pulse Rate 85 92 86 Respiratory Rate 20 Blood Pressure 143/77 H Pulse Oximetry 99 Oxygen Delivery Oxygen Flow Rate 07/14/25 08:00 Temperature Pulse Rate Respiratory Rate Blood Pressure Pulse Oximetry 94 Oxygen Delivery Nasal Cannula Oxygen Flow Rate 2 Exam Const: General: comfortable and no acute distress Nutritional Appearance: obese morbidly obese Orientation/consciousness: patient oriented x3 HENMT: Head: normocephalic and atraumatic Ears: hearing grossly normal bilaterally Mouth: Yes moist mucous membranes Eyes: General: appearance normal, both eyes and all related structures Pupils: Equal, round and reactive pupils present Neck: Neck: normal visual inspection and full ROM Resp: Effort & Inspection: no respiratory distress Auscultation: diminished lung sounds Cardio: Rate: regular rate Rhythm: regular rhythm GI: Inspection: Pannus present and obesity GI Palp: Yes Soft to palpation, Yes Tenderness to palpation present (GI) (only in area of induration in right mid abdomen), No Guarding due to palpation present (GI) and No Rebound tenderness present Auscultation: normal bowel sounds Other: Large area of erythema across the right mid and upper abdomen with a central area of induration measuring about 8 x 6 cm. There is a fluctuant area on the top of the induration and about 3 cm caudal to this is a tiny punctate area with cloudy bloody drainage. The overlying skin is intact with no areas of necrosis. She is tender in this area. Mild erythematous changes of the skin under the left breat c/w edith dermatitis. Small 0.2 cm draining wound in the LLQ at panniculus/fold with scant purulent drainage. There is no erythema, no induration, no tenderness. Unable to probe this opening. The appearance of the skin in this area has some scaring and tunneling c/w hidradenitis suppurativa. Skin: General skin exam: normal color Neuro: General: moves all extremities and no focal motor deficits Speech: normal speech Motor exam (neuro): 5/5 motor strength present throughout Extrem: General: normal to inspection and no edema Psych: Mental Status: mental status grossly normal Attitude: cooperative Insight: Good insight present (Psych) Judgement: Good judgement present (Psych) Results Labs 07/14/25 05:04 07/14/25 05:04 Labs: Abnormal lab results 07/13/25 07/13/25 07/14/25 Range/Units 20:29 22:00 05:04 RBC 3.71 L 3.74 L (4.2-5.4) M/mm3 Hgb 11.6 L 11.6 L (12.0-15.0) g/dL Hct 34.9 L 35.9 L (37.0-47.0) % Immature Gran % (Auto) 0.7 H (0-0.5) % Neut % (Auto) 73.6 H (45.5-73.1) % Lymph % (Auto) 13.8 L 14.2 L (18.3-44.2) % Eos % (Auto) 4.9 H (0-4.4) % [place] # (Auto) 0.7 H (0.1-0.6) K/mm3 Eos # (Auto) 0.5 H 0.4 H (0-0.3) K/mm3 Abs Immat Gran (auto) 0.05 H 0.07 H (0.00-0.031) K/mm3 Absolute Neuts (auto) 7.1 H 6.9 H (1.3-6.7) K/mm3 Sodium 136 L (137-145) mmol/L Chloride 109 H (98-107) mmol/L BUN 49 H D 44 H (7-17) mg/dL Creatinine 2.35 H 2.08 H (0.7-1.0) mg/dL Estimated GFR 21 L 24 L (59 - ) Glucose 231 H 170 H (65-110) mg/dL POC Capillary Glucose (65-105) mg/dl Hemoglobin A1c 8.2 H (<5.7) % C-Reactive Protein 5.3 H (<1.0) mg/dL Urine Protein 3+ H (Negative) mg/dL Urine Glucose (UA) 3+ H (Negative) mg/dL Urine RBC 3-5 H (0-2) /hpf 07/14/25 Range/Units 07:35 RBC (4.2-5.4) M/mm3 Hgb (12.0-15.0) g/dL Hct (37.0-47.0) % Immature Gran % (Auto) (0-0.5) % Neut % (Auto) (45.5-73.1) % Lymph % (Auto) (18.3-44.2) % Eos % (Auto) (0-4.4) % [place] # (Auto) (0.1-0.6) K/mm3 Eos # (Auto) (0-0.3) K/mm3 Abs Immat Gran (auto) (0.00-0.031) K/mm3 Absolute Neuts (auto) (1.3-6.7) K/mm3 Sodium (137-145) mmol/L Chloride (98-107) mmol/L BUN (7-17) mg/dL Creatinine (0.7-1.0) mg/dL Estimated GFR (59 - ) Glucose (65-110) mg/dL POC Capillary Glucose 221 H (65-105) mg/dl Hemoglobin A1c (<5.7) % C-Reactive Protein (<1.0) mg/dL Urine Protein (Negative) mg/dL Urine Glucose (UA) (Negative) mg/dL Urine RBC (0-2) /hpf Diabetes panel 07/13/25 07/14/25 Range/Units 20:29 05:04 Sodium 136 L 139 (137-145) mmol/L Potassium 4.7 4.5 (3.4-5.0) mmol/L Chloride 105 109 H (98-107) mmol/L Carbon Dioxide 24 23 (22-30) mmol/L BUN 49 H D 44 H (7-17) mg/dL Creatinine 2.35 H 2.08 H (0.7-1.0) mg/dL Glucose 231 H 170 H (65-110) mg/dL Hemoglobin A1c 8.2 H (<5.7) % Calcium 9.7 9.2 (8.4-10.2) mg/dL AST 24 (14-36) U/L ALT 26 (6-35) U/L Alkaline Phosphatase 91 (38-126) U/L Total Protein 8.2 (6.3-8.2) g/dL Albumin 4.2 (3.5-5.1) g/dL Calcium panel 07/13/25 07/14/25 Range/Units 20:29 05:04 Calcium 9.7 9.2 (8.4-10.2) mg/dL Albumin 4.2 (3.5-5.1) g/dL Pituitary panel 07/13/25 07/14/25 Range/Units 20:29 05:04 Sodium 136 L 139 (137-145) mmol/L Potassium 4.7 4.5 (3.4-5.0) mmol/L Chloride 105 109 H (98-107) mmol/L Carbon Dioxide 24 23 (22-30) mmol/L BUN 49 H D 44 H (7-17) mg/dL Creatinine 2.35 H 2.08 H (0.7-1.0) mg/dL Glucose 231 H 170 H (65-110) mg/dL Calcium 9.7 9.2 (8.4-10.2) mg/dL Adrenal panel 07/13/25 07/14/25 Range/Units 20:29 05:04 Sodium 136 L 139 (137-145) mmol/L Potassium 4.7 4.5 (3.4-5.0) mmol/L Chloride 105 109 H (98-107) mmol/L Carbon Dioxide 24 23 (22-30) mmol/L BUN 49 H D 44 H (7-17) mg/dL Creatinine 2.35 H 2.08 H (0.7-1.0) mg/dL Glucose 231 H 170 H (65-110) mg/dL Calcium 9.7 9.2 (8.4-10.2) mg/dL Total Bilirubin 0.3 (0.2-1.3) mg/dL AST 24 (14-36) U/L ALT 26 (6-35) U/L Alkaline Phosphatase 91 (38-126) U/L Total Protein 8.2 (6.3-8.2) g/dL Albumin 4.2 (3.5-5.1) g/dL All other labs normal. Imaging Additional studies: ITS Impressions Abdomen/Pelvis CT 07/14/25 08:19 IMPRESSION: 1. Directed exam demonstrating moderately extensive infiltrative changes in the right anterolateral subcutaneous soft tissues consistent with cellulitis or acute inflammatory/infectious process. This area is incompletely visualized as portions are excluded from the [id number]. 2. Other findings as above. NOTE: Preliminary radiology report provided by [facility] radiologist.
[2025-07-14] MEDS: MUPIROCIN 2% OINT 22 GM TUBE 1 APPLIC TOPICAL ×3 (12:47→22:13)
[2025-07-14] MEDS: MEGESTROL ACETATE (*CHEMO) 40 MG TABLET 80 MG PO ×2 (12:47→17:42)
[2025-07-14] MEDS: ISOSORBIDE DINITRATE 10 MG TABLET 30 MG PO ×2 (12:47→17:58)
[2025-07-14] MEDS: ASPIRIN 81 MG CHEWABLE TABLET PO (12:48)
[2025-07-14] MEDS: CEFDINIR 300 MG CAPSULE PO ×2 (12:48→21:52)
[2025-07-14] MEDS: VENLAFAXINE HCL XR 75 MG CAP.ER.24H 150 MG PO (12:48)
[2025-07-14] MEDS: GABAPENTIN 400 MG CAPSULE PO ×2 (12:48→17:43)
[2025-07-14] MEDS: DOCUSATE SODIUM 100 MG CAPSULE PO ×2 (12:48→17:43)
[2025-07-14] MEDS: CITALOPRAM HYDROBROMIDE 20 MG TABLET 40 MG PO (12:48)
[2025-07-14] MEDS: CHOLECALCIFEROL (VITAMIN D3) 25 MCG (1,000 UNITS) TABLET 50 MCG PO (12:48)
[2025-07-14] MEDS: FLUTICASONE PROPIONATE 0.05% NA SPR 16 GM BTL (*BKC) 2 SPRAY NASAL (12:49)
[2025-07-14] MEDS: EMPAGLIFLOZIN 25 MG TABLET BY MOUTH (12:49)
[2025-07-14] MEDS: INSULIN ASPART (*BKC) 100 UNITS/ML 11 UNITS SUB-Q ×2 (12:58→17:47)
[2025-07-14] MEDS: INSULIN ASPART (*BKC) 100 UNITS/ML SUB-Q ×3 (12:58→22:08)
[2025-07-14] MEDS: LIDO 1%/EPINEPHRINE 1:100,000 10 ML VIAL 5 ML INFILTRATE (13:00)
--- NOTE | 2025-07-14 14:08 | W.PM.PROC2 ---
Procedure Note - Detailed Date of Procedure 07/14/25 Pre-op Diagnosis Abdominal wall abscess Post-op Diagnosis Same Procedure Performed Incision and drainage simple right upper quadrant abdominal wall abscess Surgeon Maricruz Suarez APRN [employer] JIM Meyer Anesthesia Local (Lidocaine with 1% epinephrine) Indications This is a 60 yo morbidly obese diabetic female with history of MRSA abscesses, who presented with clinical evidence of abdominal wall cellulitis and abscess of the soft tissues. Options were discussed and decision made to proceed with bedside I&D with local anesthetic. Findings Abdominal wall abscess Description of Procedure The patient was placed in the supine position in the bed. The site of the abscess was identified. This area was prepped with iodine and draped in sterile fashion. Then, local anesthetic was infiltrated directly over the area of fluctuance. After allowing time for local anesthetic to take affect, I inserted an 18G needle into the area of fluctuance while withdrawing on the syringe to evaluate for aspiration of any purulent drainage. I did not get any drainage back into the syringe. I then moved about 3 cm caudal to this area where there was scant purulent drainage reported from nursing and inserted the 18G needle into this area while pulling back on the syringe. There was a flash of purulent drainage into the syringe. A direct incision was then made with an #11 blade scalpel and immediate flow of purulent drainage was noted. All purulent drainage was expressed and loculations were broken up. There was about 50 cc purulent drainage expressed. Sterile normal saline was then used to irrigate the abscess cavity through the incision. The incision tracked 5 cm cephalad with about a 5 x 4 cm cavity that was then packed with 1/4 iodoform gauze and covered with 4x4 gauze and medipore tape. She tolerated the procedure well. Estimated Blood Loss 1 IV Fluids 0 Urine Output 0 Drains No Packing Yes (1/4 iodoform gauze) Pathology Other (Wound culture sent) Complications None Condition Stable Disposition No change [facility] Billing Surgery - Charge Forward: Surgery Billing
[2025-07-14] MEDS: MELATONIN 5 MG TABLET PO (21:52)
[2025-07-14] MEDS: ATORVASTATIN 40 MG TABLET PO (21:52)
[2025-07-14] MEDS: VANCOMYCIN 1,500 MG/NS 500 ML 1,500 MG/500 ML BAG 250 MG IVPB (21:53)
[2025-07-14] MEDS: ACETAMINOPHEN 500 MG TABLET 650 MG BY MOUTH (21:56)
[2025-07-14] MEDS: INSULIN GLARGINE (*BKC) 100 UNITS/ML 31 UNITS SUB-Q (22:07)
[2025-07-15] VITALS (12 sets, daily range): BP systolic 142–162; BP diastolic 69–88; PULSE 70–92; RESP 17–20; TEMP 35.9–36.6; O2SAT 95–98
[2025-07-15 05:14] LABS: Hematocrit 34.2 % (37.0-47.0); Hemoglobin 11.0 g/dL (12.0-15.0); Immature Granulocyte Percent A 0.9 % (0-0.5); Lymphocytes Absolute Auto 1.31 K/mm3 (0.9-3.2); Mean Corpuscular HGB Conc 32.2 g/dl (32-36); Mean Corpuscular Hemoglobin 31.2 pg (26-34); Mean Corpuscular Volume 96.9 fl (80-100); Nucleated Red Blood Cells Absolute Auto 0.020 K/mm3 (0.0-0.012); Nucleated Red Blood Cells Perc 0.2 % (0.0-0.2); Platelet Count Result 172 k/mm3 (150-375); Red Blood Count 3.53 M/mm3 (4.2-5.4); White Blood Count 8.6 K/mm3 (4.5-10.0)
[2025-07-15 05:36] LABS: Alanine Aminotransferase 23 U/L (6-35); Albumin Level 3.8 g/dL (3.5-5.1); Alkaline Phosphatase 96 U/L (38-126); Anion Gap 6 mmol/L (4-12); Aspartate Amino Transferase 21 U/L (14-36); Bilirubin,Total 0.5 mg/dL (0.2-1.3); Blood Urea Nitrogen 38 mg/dL (7-17); Calcium 9.4 mg/dL (8.4-10.2); Carbon Dioxide 24 mmol/L (22-30); Chloride 109 mmol/L (98-107); Estimated CRCL calculation 42 ml/min; Estimated Glomerular Filt Rate 26; Glucose 226 mg/dL (65-110); Magnesium 1.6 mg/dL (1.6-2.3); Potassium 4.5 mmol/L (3.4-5.0); Sodium 139 mmol/L (137-145); Total Protein 7.2 g/dL (6.3-8.2)
[2025-07-15] MEDS: MEGESTROL ACETATE (*CHEMO) 40 MG TABLET 80 MG PO ×2 (05:53→16:42)
[2025-07-15] MEDS: MUPIROCIN 2% OINT 22 GM TUBE 1 APPLIC TOPICAL ×3 (05:55→21:47)
--- NOTE | 2025-07-15 08:10 | P.PNIM_ITS ---
Assessment and Plan Assessment and Plan (1) Type 2 diabetes mellitus: Code(s): E11.9 - Type 2 diabetes mellitus without complications Status: Chronic (2) STEPHEN (acute kidney injury): Code(s): N17.9 - Acute kidney failure, unspecified Status: Acute (3) CKD (chronic kidney disease): Code(s): N18.9 - Chronic kidney disease, unspecified Status: Acute (4) Cellulitis: Code(s): L03.90 - Cellulitis, unspecified Status: Acute Plan 60-year-old female presents to [facility] ER on 07/13/2025 complaining of redness swelling pain and discharge of her right side lower abdominal wall as well as another punctuate spot of purulent discharge in her suprapubic region. She tells me she has hidraadenitis. Past medical history obesity class 3, hyperlipidemia, CKD, GERD, hypertension, seizure disorder on Keppra, insulin- dependent diabetes mellitus, frequent skin infections, chronic respiratory failure requiring 3 L nightly. She has had a left buttock abscess requiring incision and drainage. History of MRSA. She sees Dr. Osullivan general surgery. She has had an abscess of the left breast before. A few days prior she saw her ear doctor and was prescribed cefdinir 300 mg p.o. b.i.d. for bilateral ear infection. 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 Patient presents with intermittent sinus tachycardia, afebrile. WBC 9700, INR 1.1, sodium 136, BUN 49, serum creatinine 2.35 elevated above her baseline. HbA1c 8.2, lactic acid 1.1, CRP 5.3, CT abdomen and pelvis preliminary read rib reports ventral wall cellulitis, incompletely imaged but no evidence of mass/abscess. No acute intra-abdominal abnormality. Patient presents with abdominal wall cellulitis. No mass/fluid/abscess collection identified however there is some purulent drainage. WBC count normal. No signs of sepsis on presentation. Consulted General surgery. History of hidradenitis suppurativa. Continue IV fluid and vancomycin. Fluid culture pending. Status post I&D 07/14/2025 follow wound culture Needs follow-up with General surgery outpatient basis. May use Doxycycline for discharge STEPHEN CKD stage 3 baseline creatinine around 1.4. Admission creatinine of 2.3. Continue to improve with IV fluid. Recently treated bilateral ear infections on cefdinir 300 mg b.i.d.. Nocturnal hypoxia on nasal cannula oxygen 3 L at night she did need a sleep study however has never had 1 before. Type 2 diabetes on insulin continue to monitor Accu-Cheks. Takes U 500 insulin at home. Will switch to basal bolus insulin regimen per protocol here Hypertension home medication hold Lasix valsartan and hydrochlorothiazide Seizure disorder on Keppra GERD Hyperlipidemia Obesity class 3 Frequent skin infections Code status full code DVT prophylaxis SCDs. Subjective Date/time seen: 07/15/25 08:10 Interval history: No overnight events. Wants to go home. Remains afebrile. Underwent I and D yesterday per Review of Systems Review of Systems: All systems reviewed & are unremarkable except as noted in HPI and below Exam Narrative: CONST: No acute distress. Well nourished. Obese. HENMT: Head is normocephalic and atraumatic. EYES: No scleral icterus. No conjunctival injection or pallor. PERRL. RESP: Able to speak in full sentences. Normal respiratory effort. CTAB. CARDIO: Regular rate. Regular rhythm. 2+ DP and radial pulses bilaterally. GI: Nondistended. Soft. Right lower abdomen/pannus is diffuse erythema, warmth, tenderness to palpation, no palpable fluctuance, mild induration is present, no crepitus. : No CVA tenderness to palpation. SKIN: No rashes or lesions noted on exposed skin. NEURO: Oriented x3. Moves all extremities. EXTREM/MSK/BACK: No pedal edema. PSYCH: Normal affect. Objective Data Vital Signs Vital Signs: Vital Signs - 24 hr 07/14/25 12:00 07/14/25 12:48 07/14/25 14:00 Temperature 97.5 F L Pulse Rate 65 72 81 Respiratory Rate 14 Blood Pressure 138/74 Pulse Oximetry 97 Oxygen Delivery Oxygen Flow Rate 07/14/25 20:00 07/14/25 20:34 07/14/25 21:40 Temperature 97.3 F L Pulse Rate 75 86 Respiratory Rate 18 Blood Pressure 147/83 H Pulse Oximetry 99 99 Oxygen Delivery Nasal Cannula Oxygen Flow Rate 2 07/14/25 21:53 07/15/25 00:00 07/15/25 04:00 Temperature Pulse Rate 86 70 85 Respiratory Rate Blood Pressure Pulse Oximetry Oxygen Delivery Oxygen Flow Rate 07/15/25 04:28 Temperature 97.6 F Pulse Rate 92 Respiratory Rate 18 Blood Pressure 162/88 H Pulse Oximetry 98 Oxygen Delivery Oxygen Flow Rate Intake/Output Intake/Output: Intake & Output 07/12/25 07/13/25 07/14/25 07/15/25 23:59 23:59 23:59 23:59 Intake Total 0 400 Output Total 0 Balance 0 400 Meds/Results Medications: Active Medications Generic Name Dose Route Start Last Admin Trade Name Freq PRN Reason Stop Dose Admin Acetaminophen 650 mg 07/14/25 12:00 07/14/25 21:56 Acetaminophen 500 Mg Tablet BY MOUTH 650 mg Q6H PRN Administration MILD PAIN OR FEVER Al Hydrox/Mg Hydrox/Simethicone 5 ml 07/14/25 10:00 Mag Hydrox/Al Hydrox/Simeth 30 Ml Udc PO Q6H PRN Indigestion Albuterol 1 puff 07/14/25 10:00 Albuterol Sulfate (*Sp) Aerosol 1 Puff INHALATION TID PRN Shortness Of Breath Alendronate Sodium 70 mg 07/17/25 06:30 Alendronate Sodium 70 Mg Tablet PO Th@0630 LYLA Artificial Tears 2 drop 07/14/25 10:33 Artificial Tears Ophth Soln 15 Ml Bottle EACH EYE BID PRN dry eye(s) Aspirin 81 mg 07/14/25 09:00 07/14/25 12:48 Aspirin 81 Mg Chewable Tablet PO 81 mg DAILY LYLA Administration Atorvastatin Calcium 40 mg 07/14/25 21:00 07/14/25 21:52 Atorvastatin 40 Mg Tablet PO 40 mg HS LYLA Administration Bisacodyl 5 mg 07/14/25 10:00 Bisacodyl 5 Mg Tablet Ec PO DAILY PRN Constipation Carvedilol 25 mg 07/14/25 09:00 07/14/25 21:53 Carvedilol 25 Mg Tablet PO 25 mg Q12HR LYLA Administration Cefdinir 300 mg 07/14/25 10:00 07/14/25 21:52 Cefdinir 300 Mg Capsule PO 300 mg Q12HR LYLA Administration Citalopram Hydrobromide 40 mg 07/14/25 09:00 07/14/25 12:48 Citalopram Hydrobromide 20 Mg Tablet PO 40 mg DAILY LYLA Administration Dextrose 12.5 gm 07/14/25 10:03 Dextrose 50% 25 Gm/50 Ml Syringe IV PUSH PRN PRN Hypoglycemia Protocol Docusate Sodium 100 mg 07/14/25 09:00 07/14/25 17:43 Docusate Sodium 100 Mg Capsule PO 100 mg BID LYLA Administration Empagliflozin 25 mg 07/14/25 09:00 07/14/25 12:49 Empagliflozin 25 Mg Tablet BY MOUTH 25 mg DAILY LYLA Administration Fluticasone Propionate 2 spray 07/14/25 09:00 07/14/25 12:49 Fluticasone Propionate 0.05% Na Spr 16 Gm Btl (*Bkc) NASAL 2 spray DAILY LYLA Administration Gabapentin 400 mg 07/14/25 09:00 07/14/25 17:43 Gabapentin 400 Mg Capsule PO 400 mg TID LYLA Administration Glucagon 1 mg 07/14/25 10:03 Glucagon For Inj 1 Mg Vial IM PRN PRN Hypoglycemia Protocol Glucose 15 gm 07/14/25 10:03 Glucose Oral Gel 15 Gm Of Glucse In 37.5 Gm Tube PO PRN PRN Hypoglycemia Protocol Dextrose 1,000 mls @ 100 mls/hr 07/14/25 10:03 Dextrose 5% 1,000 Ml IVPB PRN PRN Hypoglycemia Protocol Insulin Aspart 2 - 5 units 07/14/25 08:00 07/14/25 17:47 Insulin Aspart (*Bkc) 100 Units/Ml SUB-Q 3 units TIDWM LYLA Administration Protocol Insulin Aspart 1 - 2 units 07/14/25 21:00 07/14/25 22:08 Insulin Aspart (*Bkc) 100 Units/Ml SUB-Q 1 units HS [facility] Administration Protocol Insulin Aspart 11 units 07/14/25 12:00 07/14/25 17:47 Insulin Aspart (*Bkc) 100 Units/Ml 0.067 units/kg (11 units) 11 units SUB-Q Administration TIDWM [facility] Insulin Glargine 31 units 07/14/25 21:00 07/14/25 22:07 Insulin Glargine (*Bkc) 100 Units/Ml 0.2 units/kg (31 units) 31 units SUB-Q Administration [facility] Isosorbide Dinitrate 30 mg 07/14/25 09:00 07/14/25 17:58 Isosorbide Dinitrate 10 Mg Tablet PO 30 mg BID LYLA Administration Levetiracetam 750 mg 07/14/25 09:00 07/14/25 21:52 Levetiracetam 250 Mg Tablet PO 750 mg Q12HR LYLA Administration Loratadine 10 mg 07/14/25 10:35 Loratadine 10 Mg Tablet PO DAILY PRN allergies Megestrol Acetate 80 mg 07/14/25 11:30 07/15/25 05:53 Megestrol Acetate (*Chemo) 40 Mg Tablet PO 80 mg BIDAC LYLA Administration Melatonin 5 mg 07/14/25 21:00 07/14/25 21:52 Melatonin 5 Mg Tablet PO 5 mg HS LYLA Administration Menthol/Methyl Salicylate 1 applic 07/14/25 10:33 Menthol 10% / Methyl Salicylate 15% 57 Gm Tube TOPICAL BID PRN Muscle/Joint Pain Mupirocin 1 applic 07/14/25 11:10 07/15/25 05:55 Mupirocin 2% Oint 22 Gm Tube TOPICAL 1 applic Q8HR LYLA Administration Nifedipine 60 mg 07/15/25 09:00 Nifedipine 30 Mg Tab.Er.24 PO DAILY LYLA Nitroglycerin 0.4 mg 07/14/25 10:00 Nitroglycerin Sl 0.4 Mg Tablet SUBLINGUAL Q5MIN PRN Chest Pain Polyethylene Glycol 17 gm 07/14/25 09:00 07/14/25 12:49 Polyethylene Glycol 3350 17 Gm Powd.Pack PO 17 gm DAILY LYLA Administration Potassium Chloride 10 meq 07/14/25 09:00 07/14/25 12:53 Potassium Chloride 10 Meq Er Tablet PO Not Given DAILY LYLA Sodium Chloride 2 spray 07/14/25 10:00 Saline 0.65% Jewel Soln 44 Ml Btl NASAL Q2H PRN allergies Trazodone HCl 150 mg 07/14/25 21:00 07/14/25 21:52 Trazodone Hcl 50 Mg Tablet PO 150 mg HS LYLA Administration Vancomycin HCl 1 each 07/13/25 21:24 Vancomycin For Acute Kidney Injury IVPB PRN PRN Vancomycin Protocol Venlafaxine HCl 150 mg 07/14/25 09:00 07/14/25 12:48 Venlafaxine Hcl Xr 75 Mg Cap.Er.24h PO 150 mg DAILY LYLA Administration Vitamin D 50 mcg 07/14/25 09:00 07/14/25 12:48 Cholecalciferol (Vitamin D3) 25 Mcg (1,000 Units) Tablet PO 50 mcg DAILY LYLA Administration Radiology Results: ITS Impressions Abdomen/Pelvis CT 07/14/25 08:19 IMPRESSION: 1. Directed exam demonstrating moderately extensive infiltrative changes in the right anterolateral subcutaneous soft tissues consistent with cellulitis or acute inflammatory/infectious process. This area is incompletely visualized as portions are excluded from the [id number]. 2. Other findings as above. NOTE: Preliminary radiology report provided by [facility] radiologist. Labs Labs: Laboratory Results - last 24 hr 07/14/25 07/14/25 07/14/25 11:28 16:33 17:34 WBC RBC Hgb Hct MCV MCH MCHC RDW Plt Count MPV Immature Gran % (Auto) Neut % (Auto) Lymph % (Auto) [place] % (Auto) Eos % (Auto) Baso % (Auto) Lymph # (Auto) [place] # (Auto) Eos # (Auto) Baso # (Auto) Abs Immat Gran (auto) Absolute Neuts (auto) Absolute Nucleated RBC Nucleated RBC % Sodium Potassium Chloride Carbon Dioxide Anion Gap BUN Creatinine Estim Creat Clear Calc Estimated GFR Glucose POC Capillary Glucose 250 H 289 H Calcium Magnesium Total Bilirubin AST ALT Alkaline Phosphatase Total Protein Albumin Random Vancomycin 11.6 07/14/25 07/15/25 07/15/25 20:31 04:58 07:37 WBC 8.6 RBC 3.53 L Hgb 11.0 L Hct 34.2 L MCV 96.9 MCH 31.2 MCHC 32.2 RDW 12.7 Plt Count 172 MPV 9.1 Immature Gran % (Auto) 0.9 H Neut % (Auto) 71.3 Lymph % (Auto) 15.3 L [place] % (Auto) 7.6 Eos % (Auto) 4.4 Baso % (Auto) 0.5 Lymph # (Auto) 1.31 [place] # (Auto) 0.7 H Eos # (Auto) 0.4 H Baso # (Auto) 0.0 Abs Immat Gran (auto) 0.08 H Absolute Neuts (auto) 6.1 Absolute Nucleated RBC 0.020 H Nucleated RBC % 0.2 Sodium 139 Potassium 4.5 Chloride 109 H Carbon Dioxide 24 Anion Gap 6 BUN 38 H Creatinine 1.93 H Estim Creat Clear Calc 42 Estimated GFR 26 L Glucose 226 H POC Capillary Glucose 277 H 235 H Calcium 9.4 Magnesium 1.6 Total Bilirubin 0.5 AST 21 ALT 23 Alkaline Phosphatase 96 Total Protein 7.2 Albumin 3.8 Random Vancomycin
[2025-07-15] MEDS: VENLAFAXINE HCL XR 75 MG CAP.ER.24H 150 MG PO (08:33)
[2025-07-15] MEDS: CHOLECALCIFEROL (VITAMIN D3) 25 MCG (1,000 UNITS) TABLET 50 MCG PO (08:34)
[2025-07-15] MEDS: ACETAMINOPHEN 500 MG TABLET 650 MG BY MOUTH ×2 (08:34→21:38)
[2025-07-15] MEDS: LORATADINE 10 MG TABLET PO (08:34)
[2025-07-15] MEDS: CEFDINIR 300 MG CAPSULE PO ×2 (08:35→21:37)
[2025-07-15] MEDS: EMPAGLIFLOZIN 25 MG TABLET BY MOUTH (08:35)
[2025-07-15] MEDS: CITALOPRAM HYDROBROMIDE 20 MG TABLET 40 MG PO (08:35)
[2025-07-15] MEDS: ASPIRIN 81 MG CHEWABLE TABLET PO (08:35)
[2025-07-15] MEDS: GABAPENTIN 400 MG CAPSULE PO ×3 (08:35→16:42)
[2025-07-15] MEDS: ISOSORBIDE DINITRATE 10 MG TABLET 30 MG PO ×2 (08:35→16:42)
[2025-07-15] MEDS: INSULIN ASPART (*BKC) 100 UNITS/ML SUB-Q ×4 (08:38→21:43)
[2025-07-15] MEDS: INSULIN ASPART (*BKC) 100 UNITS/ML 11 UNITS SUB-Q ×3 (08:38→16:42)
[2025-07-15] MEDS: FLUTICASONE PROPIONATE 0.05% NA SPR 16 GM BTL (*BKC) 2 SPRAY NASAL (08:44)
--- NOTE | 2025-07-15 12:39 | P.PNGS_ITS ---
Progress Note: A&P Assessment and Plan (1) Abdominal wall abscess: Code(s): L02.211 - Cutaneous abscess of abdominal wall Status: Acute Assessment and Plan: * pod 1 status post bedside I and D of right mid abdominal wall abscess. erythema, warmth, and induration improved. Packing was changed today. Small amount of cloudy bloody drainage expressed. Patient afebrile and WBC has remained normal. * Cultures still pending. Continue IV Vancomycin as patient has history of MRSA. Surgically stable for discharge with follow up in 1-2 weeks. (2) Type 2 diabetes mellitus: Code(s): E11.9 - Type 2 diabetes mellitus without complications Status: Chronic Assessment and Plan: * A1c 8.2. Continue management per hospitalist. (3) Morbid obesity with BMI of 50.0-59.9, adult: Code(s): E66.01 - Morbid (severe) obesity due to excess calories; Z68.43 - Body mass index [BMI] 50.0-59.9, adult Status: Chronic (4) Hypertension: Code(s): I10 - Essential (primary) hypertension Status: Acute (5) History of MRSA infection: Code(s): Z86.14 - Personal history of Methicillin resistant Staphylococcus aureus infection Status: Acute Assessment and Plan: * Culture obtained yesterday during I&D. Results pending. She may need Hibiclens and mupirocin again if growing MRSA. Plan I have discussed the patient's case, recommendations, and treatment plan with Dr. Palacios. Subjective Subjective Date/Time Seen: 07/15/25 12:39 Post Op day: 1 (bedside I&D of abdominal abscess) Patient reports: no new complaints, feels better and tolerating a regular diet (diabetic) Interval history: Patient doing well today. Much less pain than yesterday. WBC remains normal. Afebrile. Exam Const: General: comfortable and no acute distress GI: Inspection: Pannus present and obesity Auscultation: normal bowel sounds Other: Area of skin erythema to abdomen improved from yesterday. Induration also i mproved. Iodoform packing changed today. Still a small amount of cloudy bloody drainage when packing removed. Overall improving. Patient tolerated packing change very well. Minimal tenderness. Mild erythematous changes of the skin under the left breast c/w edith dermatitis. Small 0.2 cm draining wound in the LLQ at panniculus/fold. There is no erythema, no induration, no tenderness. Unable to probe this opening. The appearance of the skin in this area has some scaring and tunneling c/w hidradenitis suppurativa. Objective Data Vital Signs Vital Signs: Vital Signs - 24 hr 07/14/25 12:48 07/14/25 14:00 07/14/25 20:00 Temperature 97.5 F L Pulse Rate 72 81 75 Respiratory Rate 14 Blood Pressure 138/74 Pulse Oximetry 97 Oxygen Delivery Oxygen Flow Rate 07/14/25 20:34 07/14/25 21:40 07/14/25 21:53 Temperature 97.3 F L Pulse Rate 86 86 Respiratory Rate 18 Blood Pressure 147/83 H Pulse Oximetry 99 99 Oxygen Delivery Nasal Cannula Oxygen Flow Rate 2 07/15/25 00:00 07/15/25 04:00 07/15/25 04:28 Temperature 97.6 F Pulse Rate 70 85 92 Respiratory Rate 18 Blood Pressure 162/88 H Pulse Oximetry 98 Oxygen Delivery Oxygen Flow Rate 07/15/25 08:00 07/15/25 08:15 07/15/25 08:33 Temperature Pulse Rate 80 92 Respiratory Rate Blood Pressure Pulse Oximetry Oxygen Delivery Room Air Oxygen Flow Rate Intake/Output Intake/Output: Intake & Output 07/12/25 07/13/25 07/14/25 07/15/25 23:59 23:59 23:59 23:59 Intake Total 0 520 Output Total 0 Balance 0 520 Meds/Results Medications: Active Medications Generic Name Dose Route Start Last Admin Trade Name Freq PRN Reason Stop Dose Admin Acetaminophen 650 mg 07/14/25 12:00 07/15/25 08:34 Acetaminophen 500 Mg Tablet BY MOUTH 650 mg Q6H PRN Administration MILD PAIN OR FEVER Al Hydrox/Mg Hydrox/Simethicone 5 ml 07/14/25 10:00 Mag Hydrox/Al Hydrox/Simeth 30 Ml Udc PO Q6H PRN Indigestion Albuterol 1 puff 07/14/25 10:00 Albuterol Sulfate (*Sp) Aerosol 1 Puff INHALATION TID PRN Shortness Of Breath Alendronate Sodium 70 mg 07/17/25 06:30 Alendronate Sodium 70 Mg Tablet PO Th@0630 [facility] Artificial Tears 2 drop 07/14/25 10:33 Artificial Tears Ophth Soln 15 Ml Bottle EACH EYE BID PRN dry eye(s) Aspirin 81 mg 07/14/25 09:00 07/15/25 08:35 Aspirin 81 Mg Chewable Tablet PO 81 mg DAILY LYAL Administration Atorvastatin Calcium 40 mg 07/14/25 21:00 07/14/25 21:52 Atorvastatin 40 Mg Tablet PO 40 mg HS LYLA Administration Bisacodyl 5 mg 07/14/25 10:00 Bisacodyl 5 Mg Tablet Ec PO DAILY PRN Constipation Carvedilol 25 mg 07/14/25 09:00 07/15/25 08:33 Carvedilol 25 Mg Tablet PO 25 mg Q12HR LYLA Administration Cefdinir 300 mg 07/14/25 10:00 07/15/25 08:35 Cefdinir 300 Mg Capsule PO 300 mg Q12HR LYLA Administration Citalopram Hydrobromide 40 mg 07/14/25 09:00 07/15/25 08:35 Citalopram Hydrobromide 20 Mg Tablet PO 40 mg DAILY LYLA Administration Dextrose 12.5 gm 07/14/25 10:03 Dextrose 50% 25 Gm/50 Ml Syringe IV PUSH PRN PRN Hypoglycemia Protocol Docusate Sodium 100 mg 07/14/25 09:00 07/15/25 08:35 Docusate Sodium 100 Mg Capsule PO Not Given BID LYLA Empagliflozin 25 mg 07/14/25 09:00 07/15/25 08:35 Empagliflozin 25 Mg Tablet BY MOUTH 25 mg DAILY LYLA Administration Fluticasone Propionate 2 spray 07/14/25 09:00 07/15/25 08:44 Fluticasone Propionate 0.05% Na Spr 16 Gm Btl (*Bkc) NASAL 2 spray DAILY LYLA Administration Gabapentin 400 mg 07/14/25 09:00 07/15/25 12:23 Gabapentin 400 Mg Capsule PO 400 mg TID LYLA Administration Glucagon 1 mg 07/14/25 10:03 Glucagon For Inj 1 Mg Vial IM PRN PRN Hypoglycemia Protocol Glucose 15 gm 07/14/25 10:03 Glucose Oral Gel 15 Gm Of Glucse In 37.5 Gm Tube PO PRN PRN Hypoglycemia Protocol Dextrose 1,000 mls @ 100 mls/hr 07/14/25 10:03 Dextrose 5% 1,000 Ml IVPB PRN PRN Hypoglycemia Protocol Insulin Aspart 2 - 5 units 07/14/25 08:00 07/15/25 12:20 Insulin Aspart (*Bkc) 100 Units/Ml SUB-Q 4 units TIDWM [facility] Administration Protocol Insulin Aspart 1 - 2 units 07/14/25 21:00 07/14/25 22:08 Insulin Aspart (*Bkc) 100 Units/Ml SUB-Q 1 units HS [facility] Administration Protocol Insulin Aspart 11 units 07/14/25 12:00 07/15/25 12:19 Insulin Aspart (*Bkc) 100 Units/Ml 0.067 units/kg (11 units) 11 units SUB-Q Administration TIDWM [facility] Insulin Glargine 31 units 07/14/25 21:00 07/14/25 22:07 Insulin Glargine (*Bkc) 100 Units/Ml 0.2 units/kg (31 units) 31 units SUB-Q Administration [facility] Isosorbide Dinitrate 30 mg 07/14/25 09:00 07/15/25 08:35 Isosorbide Dinitrate 10 Mg Tablet PO 30 mg BID [facility] Administration Levetiracetam 750 mg 07/14/25 09:00 07/15/25 08:34 Levetiracetam 250 Mg Tablet PO 750 mg Q12HR LYLA Administration Loratadine 10 mg 07/14/25 10:35 07/15/25 08:34 Loratadine 10 Mg Tablet PO 10 mg DAILY PRN Administration allergies Megestrol Acetate 80 mg 07/14/25 11:30 07/15/25 05:53 Megestrol Acetate (*Chemo) 40 Mg Tablet PO 80 mg BIDAC [facility] Administration Melatonin 5 mg 07/14/25 21:00 07/14/25 21:52 Melatonin 5 Mg Tablet PO 5 mg HS [facility] Administration Menthol/Methyl Salicylate 1 applic 07/14/25 10:33 Menthol 10% / Methyl Salicylate 15% 57 Gm Tube TOPICAL BID PRN Muscle/Joint Pain Mupirocin 1 applic 07/14/25 11:10 07/15/25 12:23 Mupirocin 2% Oint 22 Gm Tube TOPICAL 1 applic Q8HR LYLA Administration Nifedipine 60 mg 07/15/25 09:00 07/15/25 08:33 Nifedipine 30 Mg Tab.Er.24 PO 60 mg DAILY LYLA Administration Nitroglycerin 0.4 mg 07/14/25 10:00 Nitroglycerin Sl 0.4 Mg Tablet SUBLINGUAL Q5MIN PRN Chest Pain Polyethylene Glycol 17 gm 07/14/25 09:00 07/15/25 08:38 Polyethylene Glycol 3350 17 Gm Powd.Pack PO Not Given DAILY LYLA Potassium Chloride 10 meq 07/14/25 09:00 07/15/25 08:36 Potassium Chloride 10 Meq Er Tablet PO Not Given DAILY LYLA Sodium Chloride 2 spray 07/14/25 10:00 Saline 0.65% Jewel Soln 44 Ml Btl NASAL Q2H PRN allergies Trazodone HCl 150 mg 07/14/25 21:00 07/14/25 21:52 Trazodone Hcl 50 Mg Tablet PO 150 mg HS LYLA Administration Vancomycin HCl 1 each 07/13/25 21:24 Vancomycin For Acute Kidney Injury IVPB PRN PRN Vancomycin Protocol Venlafaxine HCl 150 mg 07/14/25 09:00 07/15/25 08:33 Venlafaxine Hcl Xr 75 Mg Cap.Er.24h PO 150 mg DAILY LYLA Administration Vitamin D 50 mcg 07/14/25 09:00 07/15/25 08:34 Cholecalciferol (Vitamin D3) 25 Mcg (1,000 Units) Tablet PO 50 mcg DAILY LYLA Administration Radiology Results: ITS Impressions Abdomen/Pelvis CT 07/14/25 08:19 IMPRESSION: 1. Directed exam demonstrating moderately extensive infiltrative changes in the right anterolateral subcutaneous soft tissues consistent with cellulitis or acute inflammatory/infectious process. This area is incompletely visualized as portions are excluded from the [id number]. 2. Other findings as above. NOTE: Preliminary radiology report provided by [facility] radiologist. Labs Labs: Laboratory Results - last 24 hr 07/14/25 07/14/25 07/14/25 16:33 17:34 20:31 WBC RBC Hgb Hct MCV MCH MCHC RDW Plt Count MPV Immature Gran % (Auto) Neut % (Auto) Lymph % (Auto) [place] % (Auto) Eos % (Auto) Baso % (Auto) Lymph # (Auto) [place] # (Auto) Eos # (Auto) Baso # (Auto) Abs Immat Gran (auto) Absolute Neuts (auto) Absolute Nucleated RBC Nucleated RBC % Sodium Potassium Chloride Carbon Dioxide Anion Gap BUN Creatinine Estim Creat Clear Calc Estimated GFR Glucose POC Capillary Glucose 289 H 277 H Calcium Magnesium Total Bilirubin AST ALT Alkaline Phosphatase Total Protein Albumin Random Vancomycin 11.6 07/15/25 07/15/25 07/15/25 04:58 07:37 11:40 WBC 8.6 RBC 3.53 L Hgb 11.0 L Hct 34.2 L MCV 96.9 MCH 31.2 MCHC 32.2 RDW 12.7 Plt Count 172 MPV 9.1 Immature Gran % (Auto) 0.9 H Neut % (Auto) 71.3 Lymph % (Auto) 15.3 L [place] % (Auto) 7.6 Eos % (Auto) 4.4 Baso % (Auto) 0.5 Lymph # (Auto) 1.31 [place] # (Auto) 0.7 H Eos # (Auto) 0.4 H Baso # (Auto) 0.0 Abs Immat Gran (auto) 0.08 H Absolute Neuts (auto) 6.1 Absolute Nucleated RBC 0.020 H Nucleated RBC % 0.2 Sodium 139 Potassium 4.5 Chloride 109 H Carbon Dioxide 24 Anion Gap 6 BUN 38 H Creatinine 1.93 H Estim Creat Clear Calc 42 Estimated GFR 26 L Glucose 226 H POC Capillary Glucose 235 H 312 H Calcium 9.4 Magnesium 1.6 Total Bilirubin 0.5 AST 21 ALT 23 Alkaline Phosphatase 96 Total Protein 7.2 Albumin 3.8 Random Vancomycin
[2025-07-15] MEDS: VANCOMYCIN 1,500 MG/NS 500 ML 1,500 MG/500 ML BAG 250 MG IVPB (15:27)
[2025-07-15] MEDS: MELATONIN 5 MG TABLET PO (21:37)
[2025-07-15] MEDS: ATORVASTATIN 40 MG TABLET PO (21:37)
[2025-07-15] MEDS: INSULIN GLARGINE (*BKC) 100 UNITS/ML 31 UNITS SUB-Q (21:42)
[2025-07-16] VITALS: PULSE 71
[2025-07-16 04:00] VITALS: PULSE 84
[2025-07-16 04:14] VITALS: BP 154/87; PULSE 88; RESP 20; TEMP 36.2; O2SAT 99
[2025-07-16] MEDS: ACETAMINOPHEN 500 MG TABLET 650 MG BY MOUTH (04:30)
[2025-07-16 06:06] LABS: Hematocrit 34.5 % (37.0-47.0); Hemoglobin 11.1 g/dL (12.0-15.0); Immature Granulocyte Percent A 1.2 % (0-0.5); Lymphocytes Absolute Auto 1.42 K/mm3 (0.9-3.2); Mean Corpuscular HGB Conc 32.2 g/dl (32-36); Mean Corpuscular Hemoglobin 30.9 pg (26-34); Mean Corpuscular Volume 96.1 fl (80-100); Nucleated Red Blood Cells Absolute Auto 0.000 K/mm3 (0.0-0.012); Nucleated Red Blood Cells Perc 0.0 % (0.0-0.2); Platelet Count Result 149 k/mm3 (150-375); Red Blood Count 3.59 M/mm3 (4.2-5.4); White Blood Count 8.7 K/mm3 (4.5-10.0)
[2025-07-16] MEDS: MEGESTROL ACETATE (*CHEMO) 40 MG TABLET 80 MG PO (06:07)
[2025-07-16] MEDS: MUPIROCIN 2% OINT 22 GM TUBE 1 APPLIC TOPICAL ×2 (06:08→13:12)
[2025-07-16 06:36] LABS: Alanine Aminotransferase 21 U/L (6-35); Albumin Level 3.8 g/dL (3.5-5.1); Alkaline Phosphatase 80 U/L (38-126); Anion Gap 4 mmol/L (4-12); Aspartate Amino Transferase 21 U/L (14-36); Bilirubin,Total 0.3 mg/dL (0.2-1.3); Blood Urea Nitrogen 36 mg/dL (7-17); Calcium 9.3 mg/dL (8.4-10.2); Carbon Dioxide 24 mmol/L (22-30); Chloride 112 mmol/L (98-107); Estimated CRCL calculation 45 ml/min; Estimated Glomerular Filt Rate 29; Glucose 199 mg/dL (65-110); Magnesium 1.7 mg/dL (1.6-2.3); Potassium 4.7 mmol/L (3.4-5.0); Sodium 140 mmol/L (137-145); Total Protein 7.2 g/dL (6.3-8.2)
[2025-07-16 08:02] VITALS: PULSE 82
[2025-07-16] MEDS: INSULIN ASPART (*BKC) 100 UNITS/ML 11 UNITS SUB-Q ×2 (08:14→12:13)
[2025-07-16] MEDS: INSULIN ASPART (*BKC) 100 UNITS/ML SUB-Q ×2 (08:14→12:13)
[2025-07-16] MEDS: CHOLECALCIFEROL (VITAMIN D3) 25 MCG (1,000 UNITS) TABLET 50 MCG PO (08:18)
[2025-07-16] MEDS: CEFDINIR 300 MG CAPSULE PO (08:18)
[2025-07-16 08:19] VITALS: PULSE 96
[2025-07-16] MEDS: VENLAFAXINE HCL XR 75 MG CAP.ER.24H 150 MG PO (08:19)
[2025-07-16] MEDS: ASPIRIN 81 MG CHEWABLE TABLET PO (08:19)
[2025-07-16] MEDS: ISOSORBIDE DINITRATE 10 MG TABLET 30 MG PO (08:19)
[2025-07-16] MEDS: FLUTICASONE PROPIONATE 0.05% NA SPR 16 GM BTL (*BKC) 2 SPRAY NASAL (08:20)
[2025-07-16] MEDS: EMPAGLIFLOZIN 25 MG TABLET BY MOUTH (08:20)
[2025-07-16] MEDS: GABAPENTIN 400 MG CAPSULE PO ×2 (08:20→12:14)
[2025-07-16] MEDS: CITALOPRAM HYDROBROMIDE 20 MG TABLET 40 MG PO (08:20)
[2025-07-16 08:21] VITALS: RESP 20; O2SAT 99
--- NOTE | 2025-07-16 08:38 | PM.DS ---
DS: Admitting Diagnosis Discharge Date 07/16/2025 Admitting Diagnosis Cellulitis DS: Discharge Diagnosis Discharge Diagnosis (1) Type 2 diabetes mellitus: Code(s): E11.9 - Type 2 diabetes mellitus without complications Status: Chronic (2) STEPHEN (acute kidney injury): Code(s): N17.9 - Acute kidney failure, unspecified Status: Acute (3) CKD (chronic kidney disease): Code(s): N18.9 - Chronic kidney disease, unspecified Status: Acute (4) Cellulitis: Code(s): L03.90 - Cellulitis, unspecified Status: Acute DS: Summary Hospital Course Hospital Course: 60-year-old female presents to [facility] ER on 07/13/2025 complaining of redness swelling pain and discharge of her right side lower abdominal wall as well as another punctuate spot of purulent discharge in her suprapubic region. She tells me she has hidraadenitis. Past medical history obesity class 3, hyperlipidemia, CKD, GERD, hypertension, seizure disorder on Keppra, insulin-dependent diabetes mellitus, frequent skin infections, chronic respiratory failure requiring 3 L nightly. She has had a left buttock abscess requiring incision and drainage. History of MRSA. She sees Dr. Osullivan general surgery. She has had an abscess of the left breast before. A few days prior she saw her ear doctor and was prescribed cefdinir 300 mg p.o. b.i.d. for bilateral ear infection. 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 Patient presents with intermittent sinus tachycardia, afebrile. WBC 9700, INR 1.1, sodium 136, BUN 49, serum creatinine 2.35 elevated above her baseline. HbA1c 8.2, lactic acid 1.1, CRP 5.3, CT abdomen and pelvis preliminary read rib reports ventral wall cellulitis, incompletely imaged but no evidence of mass/abscess. No acute intra-abdominal abnormality. Patient presents with abdominal wall cellulitis. No mass/fluid/abscess collection identified however there is some purulent drainage. WBC count normal. No signs of sepsis on presentation. Consulted General surgery. History of hidradenitis suppurativa. Continue IV fluid and vancomycin. Fluid culture pending. Status post I&D 07/14/2025 follow wound culture which is growing Gram-positive cocci. Yet to be finalized. Needs follow-up with General surgery outpatient basis. Switched to clindamycin as recommended by General surgery. STEPHEN CKD stage 3 baseline creatinine around 1.4. Admission creatinine of 2.3. Continue to improve with IV fluid. Recently treated bilateral ear infections on cefdinir 300 mg b.i.d.. Nocturnal hypoxia on nasal cannula oxygen 3 L at night she did need a sleep study however has never had 1 before. Type 2 diabetes on insulin continue to monitor Accu-Cheks. Takes U 500 insulin at home. Switched to basal bolus insulin regimen per protocol during hospitalization Hypertension home medication hold Lasix valsartan and hydrochlorothiazide Seizure disorder on Keppra GERD Hyperlipidemia Obesity class 3 Frequent skin infections Code status full code DVT prophylaxis SCDs. Time Spent with Patient Time attestation: Total time spent providing and/or coordinating discharge services: Exam Narrative: CONST: No acute distress. Well nourished. Obese. HENMT: Head is normocephalic and atraumatic. EYES: No scleral icterus. No conjunctival injection or pallor. PERRL. RESP: Able to speak in full sentences. Normal respiratory effort. CTAB. CARDIO: Regular rate. Regular rhythm. 2+ DP and radial pulses bilaterally. GI: Nondistended. Soft. Right lower abdomen/pannus is diffuse erythema, warmth, tenderness to palpation, no palpable fluctuance, mild induration is present, no crepitus. : No CVA tenderness to palpation. SKIN: No rashes or lesions noted on exposed skin. NEURO: Oriented x3. Moves all extremities. EXTREM/MSK/BACK: No pedal edema. PSYCH: Normal affect. DS: Data Data Completed and Pending Labs on day of discharge: Labs from last 24 hours 07/16/25 07/16/25 07/15/25 07:59 05:54 20:43 WBC 8.7 RBC 3.59 L Hgb 11.1 L Hct 34.5 L MCV 96.1 MCH 30.9 MCHC 32.2 RDW 12.4 Plt Count 149 L MPV 9.3 Immature Gran % (Auto) 1.2 H Neut % (Auto) 69.8 Lymph % (Auto) 16.4 L [place] % (Auto) 7.2 Eos % (Auto) 4.8 H Baso % (Auto) 0.6 Lymph # (Auto) 1.42 [place] # (Auto) 0.6 Eos # (Auto) 0.4 H Baso # (Auto) 0.1 Abs Immat Gran (auto) 0.10 H Absolute Neuts (auto) 6.1 Absolute Nucleated RBC 0.000 Nucleated RBC % 0.0 Sodium 140 Potassium 4.7 Chloride 112 H Carbon Dioxide 24 Anion Gap 4 BUN 36 H Creatinine 1.79 H Estim Creat Clear Calc 45 Estimated GFR 29 L Glucose 199 H POC Capillary Glucose 237 H 214 H Calcium 9.3 Magnesium 1.7 Total Bilirubin 0.3 AST 21 ALT 21 Alkaline Phosphatase 80 Total Protein 7.2 Albumin 3.8 Random Vancomycin 07/15/25 07/15/25 07/15/25 16:38 12:57 11:40 WBC RBC Hgb Hct MCV MCH MCHC RDW Plt Count MPV Immature Gran % (Auto) Neut % (Auto) Lymph % (Auto) [place] % (Auto) Eos % (Auto) Baso % (Auto) Lymph # (Auto) [place] # (Auto) Eos # (Auto) Baso # (Auto) Abs Immat Gran (auto) Absolute Neuts (auto) Absolute Nucleated RBC Nucleated RBC % Sodium Potassium Chloride Carbon Dioxide Anion Gap BUN Creatinine Estim Creat Clear Calc Estimated GFR Glucose POC Capillary Glucose 208 H 312 H Calcium Magnesium Total Bilirubin AST ALT Alkaline Phosphatase Total Protein Albumin Random Vancomycin 16.3 Imaging Radiologist's impression: ITS Impressions Abdomen/Pelvis CT 07/14/25 08:19 IMPRESSION: 1. Directed exam demonstrating moderately extensive infiltrative changes in the right anterolateral subcutaneous soft tissues consistent with cellulitis or acute inflammatory/infectious process. This area is incompletely visualized as portions are excluded from the [id number]. 2. Other findings as above. NOTE: Preliminary radiology report provided by [facility] radiologist. Discharge Plan Discharge Attending physician on discharge: Scott Alexandra Consulting providers: Radha Palacios Discharging Clinician: Scott Alexandra Anticipated Discharge Date/Time: 07/16/25 08:39 Patient Disposition: NH Intermediate/Asst Living Activity: as tolerated Diet: heart healthy and diabetic Discharge Instructions: For right upper abdomen abscess site, pack with 1/4 iodoform gauze and cover with 4x4 gauze. Secure with Medipore tape. Change daily. For left lower abdomen wound, apply mupirocin ointment to the area. Cover with gauze and secure with tape. Do this twice a day. Antibiotics sent to your pharmacy. Please pick these up and take as prescribed. The general surgery office should be calling you with follow up appointment date and time. If you do not hear anything in 3 days, please call the office at . call the office if you develop any increased pain, swelling, redness, drainage from the wound. Patient Instructions: Antibiotic Form, Pain Management in Older Adults (GEN) Patient Language: Chinese Stand Alone Forms: General Discharge Information Follow-up/Referrals: DelroyRosana M.D. [Primary Care Provider] - 1 Week Kelli Marino PA-C [Physician Printing Table Worker, General Surgery] - 2 Weeks Referral Note: 1-2 weeks Discharge Medications: New clindamycin HCl [Cleocin HCl] 300 mg capsule 300 mg PO Q6H Qty: 28 0RF Rx Instructions: Take one tablet by mouth 4 times per day. mupirocin 2 % Ointment 1 applic topical Q8HR Qty: 30 0RF Continued valsartan-hydrochlorothiazide 320-25 mg tablet 1 tablet PO DAILY menthol [Biofreeze (menthol)] 1 applic topical TID PRN (Reason: pain) bisacodyl 5 mg tablet 5 mg PO DAILY PRN (Reason: constipation) cefdinir 300 mg capsule 300 mg PO Q12H furosemide 40 mg tablet 40 mg PO DAILY alum-mag hydroxide-simeth [Advanced Antacid-Antigas] 200-200-20 mg/5 mL suspension 5 ml PO Q6H PRN (Reason: indigestion) Humulin R U-500 (Conc) Kwikpen 500 unit/mL (3 mL) insulin pen 150 unit subcut QNOON naproxen 250 mg tablet See Rx Instructions PO DAILY PRN (Reason: pain) Rx Instructions: orally daily PRN; 200 mg orally bid prn nifedipine 60 mg tablet extended release 60 mg PO DAILY potassium chloride 10 mEq capsule, extended release 10 meq PO DAILY Refresh Classic (PF) 1.4-0.6 % dropperette 2 drp EACH EYE BID PRN (Reason: dry eye(s)) atorvastatin 40 mg tablet 40 mg PO HS citalopram 40 mg tablet 40 mg PO DAILY alendronate 70 mg tablet 70 mg PO WEEKLY Rx Instructions: on gabapentin 400 mg capsule 400 mg PO TID venlafaxine 150 mg capsule,extended release 24hr 150 mg PO DAILY trazodone 100 mg tablet 150 mg PO HS levetiracetam 750 mg tablet 750 mg PO BID fluticasone propionate 50 mcg/actuation spray,suspension 2 spray INTRANASAL DAILY liraglutide [Victoza 3-Kush] 0.6 mg/0.1 mL (18 mg/3 mL) pen injector 1.8 mg SUBCUT HS dapagliflozin propanediol [Farxiga] 10 mg tablet 10 mg PO DAILY aspirin 81 mg Tablet,Chewable 81 mg PO DAILY polyethylene glycol 3350 [Miralax] 17 gram/dose Powder 17 g PO DAILY cholecalciferol (vitamin D3) 25 mcg (1,000 unit) Tablet 50 mcg PO DAILY melatonin 5 mg Tablet 5 mg PO HS cetirizine 10 mg Tablet 10 mg PO DAILY PRN (Reason: allergies) acetaminophen 650 mg Tablet Extended Release 1,300 mg PO Q8H PRN (Reason: Pain) docusate sodium 100 mg Capsule 100 mg PO BID nitroglycerin 0.4 mg Tablet, Sublingual 0.4 mg SUBLINGUAL Q5-15M PRN (Reason: Chest Pain) Rx Instructions: do not exceed 3 doses per episode albuterol sulfate 90 mcg/actuation HFA aerosol inhaler 1 puff INHALATION TID PRN (Reason: Shortness Of Breath) Saline Nasal 0.65 % Aerosol,[place] 2 spray INTRANASAL Q2H PRN (Reason: allergies) carvedilol 12.5 mg tablet 25 mg PO BID Humulin R U-500 (Conc) Kwikpen 500 unit/mL (3 mL) insulin pen 100 unit SUBCUT QPM isosorbide dinitrate 30 mg tablet 30 mg PO BID megestrol 40 mg tablet 80 mg PO BID Date of admission: 07/13/25 23:06 Primary Care Provider: DelroyRosana Admitting Provider: Gabi German Attending physician on admission: Gabi German Condition: Stable
== END 2025-07-16 14:15 ==
LOC: ANHED 23:07 → ANH2MED 23:28
PROVIDERS: Admitting Provider General Practice; Emergency Provider Student in an Organized Health Care Education/Training Program; PCP Internal Medicine; Visit Provider Internal Medicine
DX: L02.211 Cutaneous abscess of abdominal wall (principal); L03.90 Cellulitis, unspecified; B95.62 Methicillin resistant Staphylococcus aureus infection as the cause of diseases classified elsewhere; N17.9 Acute kidney failure, unspecified; I12.9 Hypertensive chronic kidney disease with stage 1 through stage 4 chronic kidney disease, or unspecified chronic kidney disease; N18.9 Chronic kidney disease, unspecified; E11.9 Type 2 diabetes mellitus without complications; E66.813 Obesity, class 3; K76.0 Fatty (change of) liver, not elsewhere classified; R16.0 Hepatomegaly, not elsewhere classified; E78.5 Hyperlipidemia, unspecified; Z68.43 Body mass index [BMI] 50.0-59.9, adult; Z79.4 Long term (current) use of insulin; L73.2 Hidradenitis suppurativa; K21.9 Gastro-esophageal reflux disease without esophagitis; G40.909 Epilepsy, unspecified, not intractable, without status epilepticus; J96.11 Chronic respiratory failure with hypoxia; Z20.822 Contact with and (suspected) exposure to COVID-19; Z16.10 Resistance to unspecified beta lactam antibiotics; Z86.14 Personal history of Methicillin resistant Staphylococcus aureus infection; Z87.891 Personal history of nicotine dependence; Z99.81 Dependence on supplemental oxygen; Z79.82 Long term (current) use of aspirin; Z79.1 Long term (current) use of non-steroidal anti-inflammatories (NSAID); Z79.83 Long term (current) use of bisphosphonates; Z79.51 Long term (current) use of inhaled steroids; Z79.85 Long-term (current) use of injectable non-insulin antidiabetic drugs; Z79.84 Long term (current) use of oral hypoglycemic drugs; Z79.899 Other long term (current) drug therapy; Z79.818 Long term (current) use of other agents affecting estrogen receptors and estrogen levels; Z82.49 Family history of ischemic heart disease and other diseases of the circulatory system; Z82.3 Family history of stroke; Z83.3 Family history of diabetes mellitus
CPT/HCPCS: 10060; 36415; 74176; 80048; 80053; 80202; 81001; 82948; 83036; 83605; 83735; 85025; 85610; 85730; 86140; 87040; 87070; 87075; 87186; 87205; 87637; 96366; 96374; 99285; A9270; G0378; G0379; J1815; J2004; J3373; J7030